=== PATIENT | female | born 1940 | race Caucasian/White ===

== ENCOUNTER 2019-09-08 09:43 | Outpatient (CLI) | payer MEDICARE, BC, SELFPAY ==
--- NOTE | ~2019-09-08 | MR_ITS ---
EXAMINATION: MR lumbar spine wo con DATE: 09/08/2019 11:16 INDICATION: Radiculopathy with right hip and leg pain. Difficulty walking. TECHNIQUE: Magnetic resonance imaging (MRI) of the lumbar spine was performed without intravenous con trast. Sequences included sagittal T2-weighted FSE, sagittal T2-weighted FS FSE, sagittal T1-weighted FSE, and axial T2-weighted FSE. COMPARISON: 06/02/2018 FINDINGS: 2 mm anterolisthesis L4 on L5. Vertebral body heights are normal. T1 hyperintense hemangioma at S1. M arrow signal is otherwise normal. Mild disc height loss at T11-T12, L3-L4 and L4-L5. The conus medull tacos terminates at T12-L1. There is normal signal in the caudal spinal cord. Moderate left renal atro phy. Paravertebral soft tissues are unremarkable. The following disc levels are specifically discusse d: T12-L1: Disc is mildly bulging. There is mild bilateral facet joint osteoarthritis. There is no neura l foraminal stenosis. There is no central canal stenosis. L1-L2: Disc is bulging. There is mild hypertrophy of the ligamentum flavum. There is mild bilateral f acet joint osteoarthritis. There is no neural foraminal stenosis. There is minimal central canal sten osis. L2-L3: Disc is bulging. There is hypertrophy of the ligamentum flavum. There is moderate bilateral fa cet joint osteoarthritis. There is mild bilateral neural foraminal stenosis. There is mild to moderat e central canal stenosis. L3-L4: Disc is bulging. There is hypertrophy of the ligamentum flavum. There is moderate bilateral fa cet joint osteoarthritis. There is mild left and mild to moderate right neural foraminal stenosis. Th ere is moderate central canal stenosis as well as narrowing of the lateral recesses, right greater th an left. L4-L5: Disc is bulging. There is hypertrophy of the ligamentum flavum. There is severe bilateral fac et joint osteoarthritis. There is moderate bilateral neural foraminal stenosis. There is moderate fernando tral canal stenosis as well as of the left and right lateral recesses. L5-S1: Disc is mildly bulging. There is moderate right and severe left facet joint osteoarthritis. Th ere is moderate bilateral neural foraminal stenosis. There is mild central canal stenosis. Is also na rrowing of the left and right lateral recesses, severe on the right greater there appears to be compr ession of the traversing right S1 nerve root. Correlate clinically for muscle weakness of plantar fle xion, sensory change of the lateral foot and small toe, and depressed ankle reflex. IMPRESSION: 1. No significant interval change in moderate lumbar spondylosis with grade 1 anterolisthesis L4 on L 5. Reviewed, dictated and finalized at location A. IMPRESSION: 1. No significant interval change in moderate lumbar spondylosis with grade 1 a nterolisthesis L4 on L5.
--- NOTE | ~2019-09-08 | MR_ITS ---
EXAMINATION: MR thoracic spine wo con DATE: 09/08/2019 11:17 INDICATION: Thoracic radiculopathy. Right leg and hip pain and difficulty walking. TECHNIQUE: Magnetic resonance imaging (MRI) of the thoracic spine was performed without intravenous c ontrast. Sagittal localizer T1-weighted FSE of the cervicothoracic spine was obtained. Thoracic spine sequences included sagittal T2-weighted FSE, sagittal T1-weighted SE, Sagittal T2-weighted FS FSE, a nd axial T2-weighted FSE. COMPARISON: None FINDINGS: Alignment is normal.Chronic minimal anterior wedging atT6 and T7. Chronic minimal central superior en dplate depression at T10. Normal marrow signal.Disc desiccation and mild to moderate disc height loss throughout the thoracic spine greatest at T5-T6 through T7-T8. Annular fissure and right paracentral disc protrusion at T10-T11 which indents the right ventral surface of the cord. Small central disc p rotrusion at T9-T10 and mild diffuse disc bulge at T11-T12. Multilevel mild to moderate facet osteoar thritis throughout the thoracic spine. This contributes to additional mild central canal stenosis T11 -T12 and minimal central canal stenosis at a few other levels in the more cephalad thoracic spine. Th e facet osteoarthritis also contributes to multilevel mild neural foraminal stenosis most prominent o n the right at T1-T2, T4-T5 and T7-T8 and on the left at T1-T2, T2-T3, T9-T10 T10-T11. There is jack l spinal cord signal. Paravertebral soft tissues are unremarkable. IMPRESSION: 1. Mild to moderate thoracic spondylosis. Reviewed, dictated and finalized at location A.
--- NOTE | ~2019-09-08 | XR_ITS ---
EXAMINATION:XR_CERV2-3V_CR DATE: 09/08/2019 11:19 INDICATION: Neck pain TECHNIQUE: AP, lateral, lateral swimmers and odontoid views of the cervical spine are provided. COMPARISON: None FINDINGS: There is straightening of the cervical spine which can be positional or due to muscular spa sm. The odontoid is intact. No fracture is identified. There are 2 mm of anterolisthesis of C3 on C4 and 2 mm of retrolisthesis of C6 on C7. The vertebral body heights are normal. There is moderate loss of intervertebral disc space height at C5-6 and C6-7. Prevertebral soft tissues are normal. Small de generative osteophytes project from the anterior endplates of multiple vertebral bodies. There is mod erate to severe facet and uncovertebral joint osteoarthritis throughout the cervical spine. IMPRESSION: 1. Moderate cervical spondylosis without acute findings. Reviewed, dictated and finalized at location A.
--- NOTE | ~2019-09-08 | XR_ITS ---
EXAMINATION: XR chest 2V DATE: 09/08/2019 11:19 INDICATION: Shortness of breath TECHNIQUE: AP and lateral views of the chest are obtained. COMPARISON: 11/17/2008 FINDINGS: The lungs are free of acute opacities. There is no pleural effusion or pneumothorax. The ca rdiomediastinal silhouette is normal. There is moderate thoracic spondylosis. IMPRESSION: 1. No acute cardiopulmonary abnormality. Reviewed, dictated and finalized at location A.
== END 2019-09-08 09:44 | disposition home or self-care (01) ==
PROVIDERS: PCP Internal Medicine; Visit Provider Nurse Practitioner Family
DX: M54.17 Radiculopathy, lumbosacral region (principal); R06.00 Dyspnea, unspecified; M54.2 Cervicalgia; M47.812 Spondylosis without myelopathy or radiculopathy, cervical region; M47.814 Spondylosis without myelopathy or radiculopathy, thoracic region
CPT/HCPCS: 71046; 72040; 72146; 72148

== ENCOUNTER 2020-03-20 09:12 | Emergency (ER) | payer MEDICARE, BC, SELFPAY ==
[2020-03-20] VITALS (27 sets, daily range): BP systolic 109–141; BP diastolic 65–86; PULSE 72–89; RESP 15–34; TEMP 35.8; O2SAT 89–100
--- NOTE | ~2020-03-20 | XR_ITS ---
EXAMINATION: XR chest 2V DATE: 03/20/2020 10:01 INDICATION: Shortness of breath TECHNIQUE: AP and lateral views of the chest are obtained. COMPARISON: 09/08/2019 FINDINGS: The lungs are free of acute opacities. A right upper extremity PICC ends with its tip in th e proximal superior vena cava. There is no pleural effusion or pneumothorax. The cardiomediastinal si lhouette is normal. There is mild thoracic spondylosis. IMPRESSION: 1. No acute cardiopulmonary abnormality. Reviewed, dictated and finalized at location A. CHBOARD OPERATOR RECEPTIONIST
--- NOTE | ~2020-03-20 | US_ITS ---
EXAMINATION: US venous doppler [facility] DATE: 03/20/2020 11:39 INDICATION: Shortness of breath. Elevated d-dimer. TECHNIQUE: Grayscale ultrasound images without and with compression and Doppler ultrasound images of the bilateral lower extremity veins were obtained. COMPARISON: None. FINDINGS: The visualized portions of right common femoral vein, profunda (deep) femoral vein, femoral vein, pop liteal vein, posterior tibial veins, peroneal veins, gastrocnemius vein and greater saphenous vein ou tflow are patent. The visualized portions of left common femoral vein, profunda femoral vein, femoral vein, popliteal v ein, posterior tibial veins, peroneal veins, gastrocnemius vein and greater saphenous vein outflow ar e patent. IMPRESSION: 1. No deep venous thrombosis in either lower limb. Reviewed, dictated and finalized at location A. MOLDER
--- NOTE | ~2020-03-20 | CT_ITS ---
EXAMINATION: CT brain wo con EXAM DATE: 03/20/2020 09:55 INDICATION: Dizziness. Left hand paresthesia. Feeling strange. Transient ischemic attack. TECHNIQUE: Spiral CT of the head was performed without contrast. Axial, coronal and sagittal images were reviewed. The dose-length product (DLP) for this examination was 605.33 mGy-cm. The exposure w as tailored according to patient size, and iterative reconstruction (ASIR) was used as additional dos e reduction technique. Comparison is made to prior examination from 06/17/2010. FINDINGS: There is no acute intraparenchymal hemorrhage. No evidence of intraparenchymal brain mass lesion. No evidence of acute infarction. Please note that initial head CT has limited sensitivity f or small or acute infarctions. There is mild periventricular and subcortical hypodensity, nonspecific but probably related to small vessel ischemic disease. There is moderate prominence of the sulci a nd ventricles related to cerebral atrophy. There is intracranial carotid arteriosclerosis. There a re no extra-axial collections. There is no mass effect or midline shift. Patient has had bilateral ocular lens surgery. Soft tissue is unremarkable. The visualized sinuses and mastoid air cells are well aerated. IMPRESSION: 1. No acute intracranial findings. 2. Chronic age related findings. Reviewed, dictated and finalized at location B. IAL EFFECTS TECHNICIAN
--- NOTE | ~2020-03-20 | NM_ITS ---
EXAMINATION: NM pulmonary perfusion DATE: 03/20/2020 13:18 INDICATION: Shortness of breath. Elevated d-dimer. TECHNIQUE: 5 mCi Tc-99m MAA by intravenous route. Scintigraphic images of the chest were obtained. COMPARISON: Chest radiograph dated 03/20/2020 FINDINGS: Small perfusion defect at the apical segment of the left upper lobe. Relatively homogeneous perfusion throughout the remainder of the lungs. IMPRESSION: 1. Low probability for pulmonary embolism. Reviewed, dictated and finalized at location A. HAMMER STRIPPER
--- NOTE | 2020-03-20 09:24 | ECG_ITS ---
Measurements Intervals [place] Rate: 81 P: 77 MS: 185 QRS: 48 QRSD: 93 T: 53 QT: 371 QTc: 432 Interpretive Statements SINUS RHYTHM BASELINE WANDER- I, II, AVR, AVL, AVF, V1-V6 NORMAL ECG Electronically Signed On 03-20-2020 13:32:19 EXTRUSION MACHINE OPERATOR by Zeferino Guardado D.O.
--- NOTE | 2020-03-20 09:46 | ED.NEUROSD ---
HPI - Neuro Symptoms/Deficit General Chief Complaint: Neuro Symptoms/Deficit <CHRIS Arce Last Filed: 03/20/20 13:46> Stated Complaint: Left Hand/Arm Numbness <CHRIS Arce Last Filed: 03/20/20 13:46> Time Seen by Provider: 03/20/20 09:28 <CHRIS Arce Last Filed: 03/20/20 13:46> Source: patient <CHRIS Arce Last Filed: 03/20/20 13:46> Mode of arrival: wheelchair <CHRIS Arce Last Filed: 03/20/20 13:46> Limitations: no limitations <CHRIS Arce Last Filed: 03/20/20 13:46> History of Present Illness HPI Narrative: This is a 79 year old female that presents to the ER for pre-syncopal episode today. Reports she was sitting in the car and started to feel lightheaded. She felt like she was going to pass out. She then had tingling in her left hand that lasted briefly. This happened a couple of times which prompted her to be seen. Reports over the last couple of weeks she has been getting short of breath with exertion. Reports she also gets lightheaded in the mornings often. Denies fever, cough, chest pain, or lower extremity edema. <CHRIS Arce Last Filed: 03/20/20 13:46> Related Data Home Medications: Home Medications Medication Instructions Recorded Confirmed Unable to Obtain Home Medications 03/20/20 03/20/20 <CHRIS Arce Last Filed: 03/20/20 13:46> Allergies/Adverse Reactions: Allergies Allergy/AdvReac Type Severity Reaction Status Date / Time meperidine Allergy Mild Verified 05/15/18 04:56 Contrast Media Allergy Unknown Unknown Uncoded 05/15/18 04:56 <CHRIS Arce Last Filed: 03/20/20 13:46> Review of Systems Review of Systems: Narrative: CONSTITUTIONAL: Denies fever EYES: Denies visual changes CARDIOVASCULAR: Denies chest pain, or edema. RESPIRATORY: Reports dyspnea. Denies cough GASTROINTESTINAL: Denies vomiting GENITOURINARY: Denies dysuria NEUROLOGIC: Denies headache, numbness, or weakness. <Nallely Cotto PA-C - Last Filed: 03/20/20 13:46> All systems reviewed & are unremarkable except as noted in HPI and below <Nallely Cotto PA-C - Last Filed: 03/20/20 13:46> [facility] Past Medical History Medical History: Medical History (Updated 03/20/20 @ 13:46 by Nallely Cotto PA-C) History of hyperlipidemia History of hypertension <Nallely Cotto PA-C - Last Filed: 03/20/20 13:46> Social History Social History: Social History Gender identity (if verbalized by the patient): Female <Nallely Cotto PA-C - Last Filed: 03/20/20 13:46> Exam Narrative: Exam Narrative: GENERAL: Well-appearing, obese, and in no acute distress. HEAD: Normocephalic, atraumatic. EYES: PERRLA and EOMI. ENT: Nares clear, no rhinorrhea or epistaxis. Mucous membranes moist. Oropharynx without tonsillar hypertrophy exudate or other lesions. Bilateral TMs pearly alford non-bulging NECK: Supple. No adenopathy or masses. No carotid bruits or JVD CHEST: Clear to auscultation. No respiratory distress. No wheezes rales or rhonchi HEART: Regular rate and rhythm. No murmur heard. Normal peripheral pulses. EXTREMITIES: Normal range of motion, except decreased ROM in the right hip due to brace in place. No edema. SKIN: Warm, dry, no rash. NEURO: No focal deficits. Alert and oriented x3. Cranial nerves II through XII grossly intact. Normal [id number]-[id number] PSYCH: Normal mood and affect <Nallely Cotto PA-C - Last Filed: 03/20/20 13:46> Course Consultations Consultation #1: Spoke with patient's primary about work-up will follow-up in clinic. <Nallely Cotto PA-C - Last Filed: 03/20/20 13:46> Date: 03/20/20 <Nallely Cotto PA-C - Last Filed: 03/20/20 13:46> Time: 13:43 <Nallely Cotto PA-C - Last Filed: 03/20/20 13:46> Vital Signs Vital signs: Vital Signs Temperature 96.4 F L 03/20/20 09:17 Pulse Rate 82 03/20/20 09:17 R
--- NOTE | 2020-03-20 09:50 | PC.NURSE ---
AWAITING PT CHEST XRAY TO CONFIRM PICC LINE PLACEMENT PRIOR TO ADMIN FLUIDS.
--- NOTE | 2020-03-20 09:56 | PC.NURSE ---
PT IN CT AT THIS TIME.
--- NOTE | 2020-03-20 10:10 | PC.NURSE ---
pt back from scanner at this time.
[2020-03-20] MEDS: SODIUM CHLORIDE 0.9% IV 1,000 ML 999 ML IV CONT (10:17)
[2020-03-20 10:19] LABS: Basophils Absolute Auto 0.1 K/mm3 (0.0-0.1); Basophils Percent Auto 0.5 % (0.2-1.2); Eosinophils Absolute Auto 0.3 K/mm3 (0-0.3); Eosinophils Percent Auto 3.4 % (0-4.4); Hematocrit 29.3 % (37.0-47.0); Hemoglobin 9.1 g/dL (12.0-15.0); Immature Granulocyte Absolute 0.04 K/mm3 (0.00-0.031); Immature Granulocyte Percent A 0.4 % (0-0.5); Lymphocytes Absolute Auto 1.25 K/mm3 (0.9-3.2); Lymphocytes Percent Auto 12.8 % (18.3-44.2); Mean Corpuscular HGB Conc 31.1 g/dl (32-36); Mean Corpuscular Hemoglobin 31.3 pg (26-34); Mean Corpuscular Volume 100.7 fl (80-100); Mean Platelet Volume 9.6 fl (7.4-10.4); Monocytes Absolute Auto 0.7 K/mm3 (0.1-0.6); Neutrophils Absolute Auto 7.4 K/mm3 (1.3-6.7); Neutrophils Percent Auto 75.9 % (45.5-73.1); Platelet Count Result 398 k/mm3 (150-375); Red Blood Count 2.91 M/mm3 (4.2-5.4); Red Cell Distribution Width 13.4 % (11.5-14.5); White Blood Count 9.8 K/mm3 (4.5-10.0)
[2020-03-20 10:21] LABS: Glucose Point of Care 132 (65-105)
[2020-03-20 10:30] LABS: INR 1.3; Prothrombin Time 16.4 Seconds (11.1-14.7)
[2020-03-20 10:46] LABS: D Dimer 6.92 ug/mL (<0.48)
[2020-03-20 10:50] LABS: Anion Gap 9 mmol/L (8-16); Blood Urea Nitrogen 23 mg/dL (7-17); Calcium 9.4 mg/dL (8.4-10.2); Carbon Dioxide 29 mmol/L (22-30); Chloride 100 mmol/L (98-107); Estimated CRCL calculation 46 ml/min; Estimated Glomerular Filt Rate 53; Glucose 134 mg/dL (65-105); Lactic Acid Reflex 1.7 mmol/L (0.7-2.1); Potassium 4.1 mmol/L (3.4-5.0); Sodium 138 mmol/L (137-145)
[2020-03-20 10:57] LABS: Add Urine Microscopic? YES; Appearance Urine Clear (Clear); Bacteria Urine Trace /hpf; Bilirubin Urine Negative (Negative); Blood Urine Negative (Negative); Color Urine Yellow (Yellow); Glucose Urine UA Negative (Negative); Ketones Urine Negative (Negative); Leukocyte Esterase Ur 1+ LEU/UL (Negative); Mucus Urine Rare /lpf; Nitrate Urine Negative (Negative); Protein Urine 1+ mg/dL (Negative); RBC Urine 0-2 /hpf (0-2); Specific Grav Ur 1.016 (1.001-1.035); Squamous Epithelial Cell Urine Many /hpf (Few); Urobilinogen Urine Negative mg/dL (<2.0)
[2020-03-20 11:01] LABS: Troponin I < 0.012 ng/mL (0.000-0.034)
[2020-03-20 11:12] LABS: CRP 0.9 mg/dL (<1.0)
[2020-03-20 11:18] LABS: NT Pro B Type Natriuretic Pept 426 PG/ML (5-100)
--- NOTE | 2020-03-20 11:30 | PC.NURSE ---
PT IN CT AT THIS TIME.
[2020-03-20] MEDS: ACETAMINOPHEN 500 MG TABLET 1000 MG PO (12:46)
--- NOTE | 2020-03-20 12:46 | PC.NURSE ---
PT TO NUCLEAR MED AT THSI TIME PER STRETCHER ON MONITOR.
--- NOTE | 2020-03-20 13:12 | PC.NURSE ---
PT ARRIVING BACK TO ROOM 14 FROM NUCLEAR MED, AWAITING RESULTS OF SCAN, VSS, WILL CONTINUE TO MONITOR.
== END 2020-03-20 14:04 | disposition home or self-care (01) ==
PROVIDERS: Physician Assistant; Emergency Provider General Practice; PCP Internal Medicine
DX: R55 Syncope and collapse (principal); R20.2 Paresthesia of skin; R06.00 Dyspnea, unspecified; E78.5 Hyperlipidemia, unspecified; I10 Essential (primary) hypertension; R82.998 Other abnormal findings in urine; R79.1 Abnormal coagulation profile
CPT/HCPCS: 36415; 70450; 71046; 78580; 80048; 81001; 82948; 83605; 83880; 84484; 85025; 85380; 85610; 85730; 86140; 87086; 87088; 93005; 93970; 96360; 96361; 99284; A9270; A9540; J7030

== ENCOUNTER 2020-06-07 10:30 | Outpatient (RCR) | payer MEDICARE, BC, SELFPAY ==
[2020-05-29 11:15] VITALS: BP 108/54; PULSE 62; RESP 20; TEMP 35.8; O2SAT 98
[2020-05-29 11:19] VITALS: PULSE 62
--- NOTE | 2020-06-11 08:14 | PCCPR ---
Discharge Susan HAJI on our voicemail she had an apt with her Machine Iii Coremaker Dr Riley. She discussed how she felt the nustep has been aggravating her knee and her hip. States she is back using a cane she has not used for a month. He told her to go ahead and cancel or dc the program. Spoke with her this am for clarification. She is going to dc.
== END 2020-06-11 08:55 | disposition home or self-care (01) ==
LOC: ANHCPREHAB 10:30
PROVIDERS: PCP Internal Medicine; Visit Provider Internal Medicine Cardiovascular Disease
DX: Z95.5 Presence of coronary angioplasty implant and graft (principal)
CPT/HCPCS: 93798

== ENCOUNTER 2021-04-24 08:28 | Outpatient (CLI) | payer MEDICARE, BC, SELFPAY ==
--- NOTE | ~2021-04-24 | XR_ITS ---
EXAMINATION: XR lumbar spine 2-3V DATE: 04/24/2021 08:58 INDICATION: Low back pain TECHNIQUE: Anteroposterior and lateral views of the lumbar spine, and cone-down lateral view of the l umbosacral junction were obtained. COMPARISON: MRI, 09/08/2019 FINDINGS: There are 7 mm of anterolisthesis of L4 on L5, increased since the comparison examination. The vertebral body heights are maintained. There is mild loss of intervertebral disc space height at L3-4, L4-5, and L5-S1. Small degenerative osteophytes project from the anterior endplates of multiple vertebral bodies. Changes of right total hip arthroplasty are noted. There is calcified atherosclero sis. IMPRESSION: 1. Moderate lumbar spondylosis, with interval worsening at L4-5, without acute findings. Reviewed, dictated and finalized at location A. LATION EXTRUDER OPERATOR
== END 2021-04-24 08:29 | disposition home or self-care (01) ==
LOC: ANHIMG 08:40
PROVIDERS: PCP Internal Medicine; Visit Provider Internal Medicine
DX: M47.896 Other spondylosis, lumbar region (principal)
CPT/HCPCS: 72100

== ENCOUNTER 2021-05-09 10:00 | Emergency (ER) | payer MEDICARE, BC, SELFPAY ==
[2021-05-09] VITALS (18 sets, daily range): BP systolic 118–152; BP diastolic 58–81; PULSE 52–62; RESP 13–21; TEMP 36.4; O2SAT 98–100
--- NOTE | ~2021-05-09 | CT_ITS ---
EXAMINATION: CT brain wo con DATE: 05/09/2021 11:28 INDICATION: Dysarthria TECHNIQUE: Computed tomography (CT) of the head was performed without intravenous contrast. The dose- length product was 605.33 mGy-cm. Automated exposure control and iterative reconstruction technique w ere employed. COMPARISON: CT dated 03/20/2020 FINDINGS: No acute intracranial hemorrhage, infarction, mass or mass effect. There are scattered mild periventricular and subcortical white matter changes, most likely related to small vessel ischemic d isease (microangiopathy). No ventriculomegaly or midline shift. Basilar cisterns are patent. Paranasa l sinuses and mastoids are pneumatized. No depressed skull fractures. Midline sagittal images demonst rate a normal corpus callosum and craniovertebral junction. IMPRESSION: 1. No acute intracranial abnormality. Reviewed, dictated and finalized at location A. ER DRIED BEEF
--- NOTE | ~2021-05-09 | XR_ITS ---
XR chest 1V portable 05/09/2021 10:50 Indication: Transient alteration of awareness Procedure: AP portable chest Comparison: 03/20/2020 Findings: Heart size normal. There are bilateral interstitial infiltrates. No significant effusion. N o pneumothorax. No acute osseous abnormality. Impression: 1: Bilateral interstitial infiltrates which may represent mild edema or developing pneumonia. Reviewed, dictated and finalized at location A. CTOR OF CHANNEL MARKETING Impression: 1: Bilateral interstitial infiltrates which may represent mild edema or develop ing pneumonia.
[2021-05-09 10:13] LABS: Glucose Point of Care 103 mg/dl (65-105)
--- NOTE | 2021-05-09 10:18 | ECG_ITS ---
Measurements Intervals [place] Rate: 53 P: 63 UT: 205 QRS: 31 QRSD: 98 T: 41 QT: 458 QTc: 431 Interpretive Statements SINUS BRADYCARDIA BORDERLINE AV CONDUCTION DELAY BORDERLINE ECG Electronically Signed On 05-09-2021 16:53:23 TENDER LABOR by Zeferino Guardado D.O.
[2021-05-09 10:35] LABS: Basophils Percent Auto 0.5 % (0.2-1.2); Eosinophils Absolute Auto 0.3 K/mm3 (0-0.3); Eosinophils Percent Auto 4.1 % (0-4.4); Hematocrit 34.7 % (37.0-47.0); Hemoglobin 11.4 g/dL (12.0-15.0); Immature Granulocyte Absolute 0.01 K/mm3 (0.00-0.031); Immature Granulocyte Percent A 0.1 % (0-0.5); Lymphocytes Percent Auto 30.8 % (18.3-44.2); Mean Corpuscular HGB Conc 32.9 g/dl (32-36); Mean Corpuscular Volume 100.6 fl (80-100); Mean Platelet Volume 10.6 fl (7.4-10.4); Monocytes Absolute Auto 0.7 K/mm3 (0.1-0.6); Neutrophils Absolute Auto 4.1 K/mm3 (1.3-6.7); Neutrophils Percent Auto 55.5 % (45.5-73.1); Platelet Count Result 231 k/mm3 (150-375); Red Blood Count 3.45 M/mm3 (4.2-5.4); Red Cell Distribution Width 12.2 % (11.5-14.5); White Blood Count 7.5 K/mm3 (4.5-10.0)
--- NOTE | 2021-05-09 10:43 | ED.NEUROSD ---
HPI - Neuro Symptoms/Deficit General Chief Complaint: Neuro Symptoms/Deficit Stated Complaint: STROKE LIKE SYMPTOMS Time Seen by Provider: 05/09/21 10:02 Source: patient Mode of arrival: EMS Limitations: no limitations History of Present Illness HPI Narrative: This is a an 80 year old female with history of hypertension, heart disease, optic stroke who presents for evaluation of speech difficulty. Patient states she woke up at 530 am and she was feeling fine. She had been talking to her , and around 930 am she felt like she was tongue tied . She felt like her tongue was thick and words did not sound right coming out of her mouth. She denies headache, dizziness, facial drooping, focal weakness in arms or legs, numbness or tingling. EMS reports patient had FAST ED score of 0. Patient reports she feels better now, and her reports her symptoms have resolved. she appears to be at baseline per . She denies history of TIA or similar symptoms in the past. Related Data Home Medications Medication Instructions Recorded Confirmed acetaminophen 500 mg PO Q6H PRN 05/29/20 05/29/20 allopurinol 100 mg PO DAILY 05/29/20 05/29/20 aspirin 81 mg PO DAILY 05/29/20 05/29/20 aspirin 325 mg PO Q6H PRN 05/29/20 05/29/20 brimonidine-timolol 1 drp OPHTHALMIC (EYE) Q12H 05/29/20 05/29/20 kqabpmx-fvz-npx C0-W9-mwqmamjw 1 tablet 05/29/20 [Calcium Citrate + D with Mag] candesartan 8 mg PO DAILY 05/29/20 05/29/20 cephalexin 500 mg PO Q8H 05/29/20 05/29/20 cyanocobalamin-cobamamide [B12] 2,500 eliseo SUBLINGUAL DAILY 05/29/20 05/29/20 docusate sodium 100 mg PO BID 05/29/20 05/29/20 ezetimibe 10 mg PO DAILY 05/29/20 05/29/20 mag vc-zkodzfn-mrtwtlubx-e-malia 400 mg PO DAILY 05/29/20 05/29/20 metoprolol succinate 25 mg PO DAILY 05/29/20 05/29/20 jt-qp-kutz-FA-Ca carb-vit K 1 tablet DAILY 05/29/20 05/29/20 [Women's Multivitamin] oxybutynin chloride 5 mg PO DAILY 05/29/20 05/29/20 polyethylene glycol 3350 [Miralax] 17 g PO PRN 05/29/20 rosuvastatin 20 mg PO DAILY 05/29/20 05/29/20 Allergies Allergy/AdvReac Type Severity Reaction Status Date / Time meperidine Allergy Mild Verified 05/15/18 04:56 Contrast Media Allergy Unknown Unknown Uncoded 05/15/18 04:56 Review of Systems Review of Systems: All systems reviewed & are unremarkable except as noted in HPI and below [facility] Past Medical History Medical History (Updated 05/09/21 @ 13:20 by Colleen Corado PA-C) Dyslipidemia Glaucoma Hypertension Ischemic optic neuropathy Obstructive sleep apnea on CPAP Urinary incontinence in female Surgical History Surgical History (Updated 05/09/21 @ 13:18 by Colleen Corado PA-C) History of appendectomy History of cardiac catheterization History of carpal tunnel release History of section History of colonoscopy with polypectomy History of hysterectomy History of right hip replacement Status post removal of thyroid nodule Status post trigger finger release Family History Family History Sibling Acute myocardial infarction Cerebrovascular accident Diabetes mellitus Breast cancer Father Diabetes mellitus Mother Breast cancer Exam Const: General: no acute distress and alert Orientation/consciousness: patient oriented x3 HENMT: Head: normocephalic and atraumatic Face and sinus: normal facial exam, sinuses nontender and face symmetric Mouth: Yes Normal oral and palatal mucosa present, Yes lip normal, Yes tongue normal, Yes oropharynx normal and Yes moist mucous membranes Throat: posterior oropharynx normal, tonsils normal and uvula midline Eyes: Pupils: Equal, round and reactive pupils present EOM: EOMs intact bilaterally Resp: Effort & Inspection: normal respiratory effort and no retractions Auscultation: clear to auscultation bilaterally Cardio: Rate: regular rate Rhythm: regular rhythm Heart sounds: no murmurs GI: GI Palp: Y
[2021-05-09 10:48] LABS: INR 1.1; Prothrombin Time 13.7 Seconds (11.1-14.7)
[2021-05-09 10:49] LABS: Partial Thromboplastin Time 31.5 SECONDS (22.3-36.8)
[2021-05-09 10:52] LABS: Alanine Aminotransferase 15 U/L (4-35); Albumin Level 3.5 g/dL (3.5-5.1); Alkaline Phosphatase 72 U/L (38-126); Anion Gap 4 mmol/L (8-16); Aspartate Amino Transferase 20 U/L (14-36); Bilirubin,Total 0.3 mg/dL (0.2-1.3); Blood Urea Nitrogen 29 mg/dL (7-17); Calcium 7.9 mg/dL (8.4-10.2); Carbon Dioxide 21 mmol/L (22-30); Chloride 110 mmol/L (98-107); Estimated CRCL calculation 55 ml/min; Estimated Glomerular Filt Rate > 60; Glucose 109 mg/dL (65-110); Potassium 3.5 mmol/L (3.4-5.0); Sodium 135 mmol/L (137-145)
[2021-05-09 11:03] LABS: Troponin I < 0.012 ng/mL (0.000-0.034)
[2021-05-09 11:59] LABS: NT Pro B Type Natriuretic Pept 245 pg/mL (5-100)
--- NOTE | 2021-05-09 13:14 | PM.IMHP ---
[facility] Past Medical History Medical History (Updated 05/09/21 @ 13:20 by Colleen Corado PA-C) Dyslipidemia Glaucoma Hypertension Ischemic optic neuropathy Obstructive sleep apnea on CPAP Urinary incontinence in female Surgical History Surgical History (Updated 05/09/21 @ 13:18 by Colleen Corado PA-C) History of appendectomy History of cardiac catheterization History of carpal tunnel release History of section History of colonoscopy with polypectomy History of hysterectomy History of right hip replacement Status post removal of thyroid nodule Status post trigger finger release Family History Family History Sibling Acute myocardial infarction Cerebrovascular accident Diabetes mellitus Breast cancer Father Diabetes mellitus Mother Breast cancer Meds Home Medications and Allergies Home Medications Medication Instructions Recorded Confirmed Type acetaminophen 500 mg PO Q6H PRN 05/29/20 05/29/20 History allopurinol 100 mg PO DAILY 05/29/20 05/29/20 History aspirin 81 mg PO DAILY 05/29/20 05/29/20 History aspirin 325 mg PO Q6H PRN 05/29/20 05/29/20 History brimonidine-timolol 1 drp OPHTHALMIC (EYE) Q12H 05/29/20 05/29/20 History ruobjbk-duw-pep D0-O1-foqmyalg 1 tablet 05/29/20 History [Calcium Citrate + D with Mag] candesartan 8 mg PO DAILY 05/29/20 05/29/20 History cephalexin 500 mg PO Q8H 05/29/20 05/29/20 History cyanocobalamin-cobamamide [B12] 2,500 eliseo SUBLINGUAL DAILY 05/29/20 05/29/20 History docusate sodium 100 mg PO BID 05/29/20 05/29/20 History ezetimibe 10 mg PO DAILY 05/29/20 05/29/20 History mag yr-ivsajlc-bebrnfpjf-e-malia 400 mg PO DAILY 05/29/20 05/29/20 History metoprolol succinate 25 mg PO DAILY 05/29/20 05/29/20 History wq-vp-lqbi-FA-Ca carb-vit K 1 tablet DAILY 05/29/20 05/29/20 History [Women's Multivitamin] oxybutynin chloride 5 mg PO DAILY 05/29/20 05/29/20 History polyethylene glycol 3350 [Miralax] 17 g PO PRN 05/29/20 History rosuvastatin 20 mg PO DAILY 05/29/20 05/29/20 History Allergies Allergy/AdvReac Type Severity Reaction Status Date / Time meperidine Allergy Mild Verified 05/15/18 04:56 Contrast Media Allergy Unknown Unknown Uncoded 05/15/18 04:56
[2021-05-10 19:18] LABS: SARS-CoV-2 RNA PCR Negative
== END 2021-05-09 13:20 | disposition left against medical advice (07) ==
PROVIDERS: Emergency Provider General Practice; PCP Internal Medicine
DX: R47.1 Dysarthria and anarthria (principal); Z20.822 Contact with and (suspected) exposure to COVID-19; R00.1 Bradycardia, unspecified; R94.31 Abnormal electrocardiogram [ECG] [EKG]; R91.8 Other nonspecific abnormal finding of lung field; Z79.82 Long term (current) use of aspirin; E78.5 Hyperlipidemia, unspecified; I10 Essential (primary) hypertension; H47.019 Ischemic optic neuropathy, unspecified eye; G47.33 Obstructive sleep apnea (adult) (pediatric); Z86.010 Personal history of colon polyps; Z96.641 Presence of right artificial hip joint
CPT/HCPCS: 36415; 70450; 71045; 80053; 82948; 83880; 84484; 85025; 85610; 85730; 93005; 99284; C9803; U0003; U0005

== ENCOUNTER 2021-05-24 08:55 | Outpatient (CLI) | payer MEDICARE, BC, SELFPAY ==
--- NOTE | ~2021-05-24 | XR_ITS ---
EXAMINATION: XR chest 2V DATE: 05/24/2021 09:14 INDICATION: Bilateral lung opacities. Abnormal chest radiograph. TECHNIQUE: Frontal and lateral views of the chest were obtained. COMPARISON: Chest single view 05/09/2021, chest 2 views 03/20/2020 FINDINGS: There is mild atelectasis at left lung base. No pleural effusion or pneumothorax. The heart size is normal. IMPRESSION: 1. Mild atelectasis at left lung base. Reviewed, dictated and finalized at location A. CS MANUFACTURING TECHNICIAN
== END 2021-05-24 08:56 | disposition home or self-care (01) ==
LOC: ANHIMG 09:01
PROVIDERS: PCP Internal Medicine; Visit Provider Internal Medicine
DX: R91.8 Other nonspecific abnormal finding of lung field (principal)
CPT/HCPCS: 71046

== ENCOUNTER 2021-11-11 10:06 | Outpatient (CLI) | payer MEDICARE, BC, SELFPAY ==
--- NOTE | ~2021-11-11 | XR_ITS ---
EXAMINATION: XR hip LT min 2V INDICATION: Left hip pain TECHNIQUE: Two views of the left hip are obtained. COMPARISON: None available FINDINGS: Bone alignment is normal. There is no fracture. There is moderate osteoarthritis of the hip . Suture anchors are noted in the pubic symphysis. There are phleboliths in the pelvis. IMPRESSION: 1. Moderate hip osteoarthritis. Reviewed, dictated and finalized at location A.
== END 2021-11-11 10:07 | disposition home or self-care (01) ==
PROVIDERS: PCP Internal Medicine; Visit Provider Nurse Practitioner Family
DX: M16.12 Unilateral primary osteoarthritis, left hip (principal)
CPT/HCPCS: 73502

== ENCOUNTER 2022-01-20 19:39 | Observation (INO) | payer MEDICARE, BC, SELFPAY ==
--- NOTE | ~2022-01-20 | CT_ITS ---
EXAMINATION: CT brain wo con DATE: 01/20/2022 20:25 INDICATION: left arm numbness . TECHNIQUE: Computed tomography (CT) of the head was performed without intravenous contrast. The mA wa s adjusted according to patient size. Iterative reconstruction technique was employed. The dose-lengt h product was 605.33 mGy-cm. COMPARISON: 05/09/2021 FINDINGS: No acute intracranial hemorrhage or extra-axial fluid collection. No hydrocephalus, mass, or herniation. No acute ischemic infarct. Unremarkable dural venous sinus attenuation. No acute osseous abnormality. The aerated spaces are clear. Mild atrophy and chronic white matter change. Atherosclerotic intracranial calcifications. IMPRESSION: No acute intracranial process. Reviewed, dictated and finalized at location K.
--- NOTE | ~2022-01-20 | XR_ITS ---
EXAMINATION: XR chest 2V Exam Date/Time: 01/20/2022 20:20 CDT HISTORY: BILATERAL ARM TINGLING, HX HTN TIA Comparison: 05/24/2021. RESULT: Lines, tubes, and devices: None. Lungs and pleura: Senescent change left lower lobe scar. Cardiomediastinal silhouette: Stable. Other: No acute osseous or upper abdominal finding. IMPRESSION: No acute cardiopulmonary process. Reviewed, dictated and finalized at location K.
--- NOTE | ~2022-01-20 | MR_ITS ---
EXAMINATION: MR brain/brain stem wo/w con DATE: 01/21/2022 12:17 INDICATION: Transient ischemic attack. TECHNIQUE: Magnetic resonance imaging (MRI) of the brain and brainstem was performed without and with 20 mL MultiHance intravenous contrast. COMPARISON: Head CT 01/20/2022 FINDINGS: There are scattered areas of nonspecific increased T2-weighted signal intensity in the cere bral white matter, which is within normal limits for the patient's age. There is no intracranial hem orrhage, acute infarction, or abnormal intracranial mass lesion. The ventricles are normal in size. T he paranasal sinuses are clear. There are likely changes of ocular lens replacement surgeries. The ma stoid air cells are normal. IMPRESSION: 1. Normal aging brain. Reviewed, dictated and finalized at location A. IMPRESSION: 1. Normal aging brain.
--- NOTE | ~2022-01-20 | US_ITS ---
EXAMINATION: US carotid duplex BI DATE: 01/21/2022 12:45 INDICATION: Transient ischemic attack. TECHNIQUE: Grayscale, color Doppler, and pulsed Doppler images of the cervical carotid arteries were obtained. The degree of vessel stenosis is placed in one of the following categories: normal, <50%, 5 0-69%, >=70% but less than near-occlusion, near-occlusion, or total occlusion. Note that percent sten osis relative to normal distal artery lumen diameter is indirectly measured from velocity measurement s as described by Justin, et al. Radiology 2003; 229:340-346. COMPARISON: None. FINDINGS: RIGHT: The right common carotid artery (CCA) peak systolic velocity (PSV) is 77 cm/s. The right internal car otid artery (ICA) PSV is 58 cm/s. The right ICA end-diastolic velocity (EDV) is 17 cm/s. The right IC A/CCA PSV ratio is 0.8. Grayscale and color Doppler images yield an estimate of <50% diameter reducti on from plaque in the ICA. There is antegrade flow in the right vertebral artery. LEFT: The left CCA PSV is 72 cm/s. The left ICA PSV is 61 cm/s. The left ICA EDV is 23 cm/s. The left ICA/C CA PSV ratio is 0.8. Grayscale and color Doppler images yield an estimate of <50% diameter reduction from plaque in the ICA. There is antegrade flow in the left vertebral artery. IMPRESSION: 1. <50% stenosis in the right internal carotid artery. 2. <50% stenosis in the left internal carotid artery. Reviewed, dictated and finalized at location A.
[2022-01-20 19:38] VITALS: BP 197/84; PULSE 68; RESP 13; TEMP 36.6; O2SAT 99
--- NOTE | 2022-01-20 19:54 | ECG_ITS ---
Measurements Intervals [place] Rate: 61 P: 68 NV: 199 QRS: 38 QRSD: 87 T: 52 QT: 430 QTc: 435 Interpretive Statements SINUS RHYTHM NORMAL ECG COMPARED TO ECG 05/09/2021 10:26:51 SINUS RHYTHM NOW PRESENT Electronically Signed On 01-21-2022 6:25:31 CDT by Zeferino Guardado D.O.
[2022-01-20 20:14] LABS: Glucose Point of Care 94 mg/dl (65-105)
[2022-01-20 20:18] LABS: Basophils Absolute Auto 0.1 K/mm3 (0.0-0.1); Basophils Percent Auto 0.7 % (0.2-1.2); Eosinophils Absolute Auto 0.4 K/mm3 (0-0.3); Eosinophils Percent Auto 4.6 % (0-4.4); Hematocrit 39.2 % (37.0-47.0); Hemoglobin 12.7 g/dL (12.0-15.0); Immature Granulocyte Absolute 0.02 K/mm3 (0.00-0.031); Immature Granulocyte Percent A 0.2 % (0-0.5); Lymphocytes Absolute Auto 3.18 K/mm3 (0.9-3.2); Lymphocytes Percent Auto 34.7 % (18.3-44.2); Mean Corpuscular HGB Conc 32.4 g/dl (32-36); Mean Corpuscular Hemoglobin 32.2 pg (26-34); Mean Corpuscular Volume 99.5 fl (80-100); Mean Platelet Volume 10.2 fl (7.4-10.4); Monocytes Absolute Auto 0.8 K/mm3 (0.1-0.6); Monocytes Percent Auto 9.2 % (2.6-8.5); Neutrophils Absolute Auto 4.7 K/mm3 (1.3-6.7); Neutrophils Percent Auto 50.6 % (45.5-73.1); Platelet Count Result 262 k/mm3 (150-375); Red Blood Count 3.94 M/mm3 (4.2-5.4); Red Cell Distribution Width 12.3 % (11.5-14.5); White Blood Count 9.2 K/mm3 (4.5-10.0)
[2022-01-20 20:28] LABS: Anion Gap 9 mmol/L (8-16); Blood Urea Nitrogen 25 mg/dL (7-17); Calcium 9.3 mg/dL (8.4-10.2); Carbon Dioxide 26 mmol/L (22-30); Chloride 102 mmol/L (98-107); Estimated CRCL calculation 18 ml/min; Estimated Glomerular Filt Rate 43; Glucose 100 mg/dL (65-110); Potassium 4.2 mmol/L (3.4-5.0); Sodium 137 mmol/L (137-145)
[2022-01-20 20:29] LABS: INR 1.1; Prothrombin Time 13.5 Seconds (11.1-14.7)
[2022-01-20 20:30] LABS: Partial Thromboplastin Time 31.1 SECONDS (22.3-36.8)
[2022-01-20 20:40] LABS: Troponin I < 0.012 ng/mL (0.000-0.034)
--- NOTE | 2022-01-20 20:43 | ED.NEUROSD ---
HPI - Neuro Symptoms/Deficit General Chief Complaint: Neuro Symptoms/Deficit Stated Complaint: NEURO Time Seen by Provider: 01/20/22 19:44 History of Present Illness HPI Narrative: Patient is an 81-year-old female who presents ER with concerns for CVA. Patient having left arm numbness. She also reports at 1230 today she had developed right sided facial numbness that persisted through the arm numbness. No slurred speech no facial droop. No arm drift. She felt dizzy when she went from sitting to standing. Symptoms now resolved. Had similar symptoms couple months ago left AMA. Patient has history of optic stroke. She reports she recently ran out of her baby M-DAQ's and has not been taking chest pain chest pressure shortness of breath. Admission condition Related Data Home Medications Medication Instructions Recorded Confirmed acetaminophen 500 mg tablet 500 mg PO Q6H PRN Pain 05/29/20 05/29/20 allopurinol 100 mg tablet 100 mg PO DAILY 05/29/20 05/29/20 aspirin 81 mg PO DAILY 05/29/20 05/29/20 aspirin 325 mg tablet 325 mg PO Q6H PRN Pain 05/29/20 05/29/20 brimonidine 0.2 %-timolol 0.5 % 1 drp ophthalmic (eye) Q12H 05/29/20 05/29/20 eye drops ryxgkwt-wjj-ntu Y9-I5-vqdcqvfe 250 1 tablet 05/29/20 mg-40 mg-5 mg-125 unit tablet candesartan 8 mg tablet 8 mg PO DAILY 05/29/20 05/29/20 cephalexin 500 mg capsule 500 mg PO Q8H 05/29/20 05/29/20 cyanocobalamin (B12)-cobamamide 2,500 eliseo sublingual DAILY 05/29/20 05/29/20 5,000 mcg-100 mcg sublingual lozenge (B12) docusate sodium 100 mg capsule 100 mg PO BID 05/29/20 05/29/20 ezetimibe 10 mg PO DAILY 05/29/20 05/29/20 mag ro-ujxlpmd-zolvtsqzz-e-malia 400 mg PO DAILY 05/29/20 05/29/20 metoprolol succinate 25 mg 25 mg PO DAILY 05/29/20 05/29/20 tablet,extended release 24 hr dlutzexf-ssg-sfwn-FA-Ca carb-vit K 1 tablet DAILY 05/29/20 05/29/20 18 mg iron-400 mcg-500 mg tablet (Women's Multivitamin) oxybutynin chloride 5 mg tablet 5 mg PO DAILY 05/29/20 05/29/20 polyethylene glycol 3350 17 17 g PO PRN Constipation 05/29/20 gram/dose oral powder (Miralax) rosuvastatin 20 mg tablet 20 mg PO DAILY 05/29/20 05/29/20 Allergies Allergy/AdvReac Type Severity Reaction Status Date / Time meperidine Allergy Mild Nausea and Verified 01/20/22 19:54 Vomiting tramadol AdvReac Nausea and Verified 01/20/22 19:54 Vomiting Contrast Media Allergy Unknown Unknown Uncoded 01/20/22 19:54 Review of Systems Review of Systems: All systems reviewed & are unremarkable except as noted in HPI and below Constitutional: Constitutional: Denies chills and Denies fever(s) Eyes: Eyes: Denies change in vision ENT: Denies nasal congestion and Denies sore throat Cardiovascular: Cardiovascular: Denies chest pain, Denies rapid heart rate and Denies radiating jaw, neck or arm pain Respiratory: Respiratory: Denies cough, Denies dyspnea and Denies wheezing Gastrointestinal: Gastrointestinal: Denies abdominal pain, Denies nausea and Denies vomiting Neurologic: Reports dizziness, Denies syncope, Denies headache(s), Denies focal weakness, Reports numbness and Denies weakness PMFSH Past Medical History Medical History (Updated 01/20/22 @ 23:23 by Don Cullen MD) Dyslipidemia Glaucoma Hypertension Ischemic optic neuropathy Obstructive sleep apnea on CPAP Urinary incontinence in female Surgical History Surgical History (Updated 05/09/21 @ 13:18 by Colleen Corado PA-C) History of appendectomy History of cardiac catheterization History of carpal tunnel release History of section History of colonoscopy with polypectomy History of hysterectomy History of right hip replacement Status post removal of thyroid nodule Status post trigger finger release Family History Family History Sibling Acute myocardial infarction Cerebrovascular accident Diabetes mellitus Breast cancer Father Diabetes mellitus
--- NOTE | 2022-01-20 21:02 | PC.NURSE ---
Pt able to ambulate with minimal assistance to restroom for urine sample
[2022-01-20 21:09] VITALS: BP 176/76; PULSE 64; RESP 16; O2SAT 99
[2022-01-20] MEDS: SODIUM CHLORIDE 0.9% IV 1,000 ML 999 ML IV CONT (21:09)
[2022-01-20 21:12] LABS: Appearance Urine Clear (Clear); Bilirubin Urine Negative (Negative); Blood Urine Negative (Negative); Color Urine Yellow (Yellow); Glucose Urine UA Negative (Negative); Ketones Urine Negative (Negative); Leukocyte Esterase Ur Negative LEU/UL (Negative); Nitrate Urine Negative (Negative); Protein Urine Negative (Negative); Urobilinogen Urine 0.2 mg/dL (<2.0)
[2022-01-20 21:13] LABS: Add Urine Microscopic? NO
[2022-01-20 21:47] VITALS: BP 142/95; PULSE 70; RESP 16; O2SAT 100
[2022-01-20 23:13] VITALS: BP 141/78; PULSE 65; RESP 16; O2SAT 99
[2022-01-20 23:20] VITALS: BP 154/95; PULSE 71; RESP 18; TEMP 36; O2SAT 96
[2022-01-20 23:44] VITALS: BMI 35.6
--- NOTE | 2022-01-20 23:50 | ADMGEN ---
This patient, Susan Foster, was admitted to [facility] Surg Room 323-02. Patient/family oriented to hospital policies and general routines including ID bracelet, bed and alarms, visiting hours, pain management, procedures, bathroom and other care routines, personal items, smoking policy, room service/diet, and visiting hours. Information on how to activate the Rapid Response Team has been discussed. Patient/Family are encouraged to report perceived risks to care and to ask questions if they do not understand what they are told or what they should do.
[2022-01-21 04:00] VITALS: PULSE 55
[2022-01-21 06:00] VITALS: BP 131/87; PULSE 67; RESP 18; TEMP 36.1; O2SAT 98
--- NOTE | 2022-01-21 06:19 | PM.IMHP ---
H&P: HPI History of Present Illness Date/Time: 01/21/22 06:19 Chief Complaint: Face numbness, left arm numbness Narrative: 81-year-old female with a past medical history of ocular strokes, hypertension, hyperlipidemia, glaucoma, migraines and obstructive sleep apnea who presented to the ER from home via EMS due to sudden onset of right face numbness and left arm numbness. The patient reports that she was watching TV when suddenly she felt a funny sensation to the right side of her eye and numbness 2 or right lateral face. She reports that her tongue also felt numb and she thought that she was going to bite her tongue when she was trying to talk. she had some difficulty with enunciation. At the same time she had numbness of her left arm. They called EMS immediately and in route to the hospital the patient reports that her symptoms resolved. She denies any numbness or change in sensation of her left leg. 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 She had a similar episode with difficulty is speech in 2020 but left ER AMA without further evaluation because she was back to her baseline. She reports she does follow with a neurologist as outpatient due to trigeminal neuralgia. She reports her trigeminal neuralgia is in remission right now. But her neurologist at [place] has been following a spot on her brain for a little over the last year. She had her follow-up MRI in December and that spot on her brain was stable. He states that her neurologist never mentioned any evidence of strokes on her MRIs. She reports that she did feel lightheaded when the episode occurred per sensation of lightheadedness has went away. She denies any new vision changes. She denies any associated headache with her symptoms last night. Her symptoms lasted between 15 and 20 minutes and resolved before she came to the ER. She did not have any noticeable facial asymmetry. she reports that over the last 8 weeks she has had recurrence of her right hip pain that is similar to when she had a prior infection of her hip replacement. She ready has follow-up with her orthopedic surgeon arranged as outpatient. She is on chronic antibiotic therapy with Keflex. She has chronic urinary incontinence and night in wears pads. She has chronic urinary frequency but denies dysuria , hematuria or fevers. the patient's conjunctivae are red she states that her eyes are chronically dry. She reports that she has been on a baby aspirin daily for years. She has been out of her baby aspirin for the last 2 weeks.She did take 2 full-dose aspirin at home prior to calling EMS. Review of Systems Review of Systems: 12 systems were reviewed with pertinent positives and negatives per HPI. Except as documented in the HPI, all other systems were reviewed and are negative. [facility] Past Medical History Medical History (Updated 01/21/22 @ 06:53 by Sabina Ash DO) Dyslipidemia Glaucoma Gout Hypertension Ischemic optic neuropathy Migraine Obstructive sleep apnea on CPAP Trigeminal neuralgia Urinary incontinence in female Surgical History Surgical History (Updated 01/21/22 @ 06:53 by Sabina Ash DO) History of appendectomy History of bilateral carpal tunnel release History of cardiac catheterization several cardiac catheterizations without significant coronary disease History of section History of colonoscopy with polypectomy History of hysterectomy History of right hip replacement complicated by postop infection on chronic antibiotic therapy with Keflex Status post removal of thyroid nodule Status post trigger finger release x5 Family History Family History (Updated 01/21/22 @ 06:56 by Sabina Ash DO) Sibling Acute myocardial infarction Cerebrovascular accident Diabetes mellitus Breast cancer Father Diabetes mellitus Colon cancer Mother
[2022-01-21 08:00] VITALS: PULSE 66
[2022-01-21] MEDS: CEPHALEXIN 500 MG CAPSULE PO (08:37)
[2022-01-21] MEDS: ASPIRIN 81 MG ENTERIC TABLET PO (08:37)
[2022-01-21] MEDS: allopurinoL 100 MG TABLET PO (08:37)
[2022-01-21] MEDS: ROSUVASTATIN 10 MG TABLET PO (08:38)
[2022-01-21] MEDS: MAGNESIUM OXIDE 400 MG TABLET PO (08:38)
[2022-01-21] MEDS: CYANOCOBALAMIN 500 MCG TABLET PO (08:38)
[2022-01-21] MEDS: CYANOCOBALAMIN 1,000 MCG TABLET 2000 MCG PO (08:38)
[2022-01-21 08:39] VITALS: PULSE 70
[2022-01-21] MEDS: METOPROLOL SUCCINATE EXT REL 25 MG TABCR PO (08:39)
--- NOTE | 2022-01-21 09:13 | WPDNEURCNPN ---
Assessment and Plan Assessment and plan (1) Brain TIA: Code(s): G45.9 - Transient cerebral ischemic attack, unspecified Status: Acute Assessment and Plan: Susan Foster is a 81 year old female with a history of HTN, HLD, ischemic ocular neuropathy, trigeminal neuralgia, and LOLI who presented yesterday due to right facial and left upper extremity numbness. Concerning for possible TIA (would have to localize to brainstem given cross sensory symptoms). She does have a history of right trigeminal neuralgia as well as carpal tunnel syndrome in her left hand, which could also have been the cause of her symptoms. - MRI brain w/o contrast - MRA brain w/o contrast (patient reports contrast allergy) - Carotid doppler - Surface echo - Continue ASA 81mg - On Crestor 10mg - Check A1c and lipid panel Consult date: 01/21/22 Time Seen: 09:13 Reason for consult: TIA HPI: Susan Foster is a 81 year old female with a history of HTN, HLD, ischemic ocular neuropathy, trigeminal neuralgia, and LOLI who presented yesterday due to right facial and left upper extremity numbness. Her symptoms started at 1230 on 01/20. She initially felt the right side of her face go numb along with her tongue, and then the left arm. She found that her speech had been affected as well. Her symptoms had self-resolved after about 15 minutes while en route to [facility]. She usually takes ASA everyday, but has been out the past two weeks. In the ED her BP was 197/84. EKG showed sinus rhythm. Her CT head was negative. She had no focal deficits on exam except for baseline visual deficits from prior ocular strokes. She was admitted for further work-up of TIA. She follows with a Neurologist for her Trigeminal Neuralgia. She had a MRI recently and was told that there was a lesion that was noted that her doctor was going to surveillance. Patient at baseline has peripheral vision loss. She denies any new changes in her vision. She currently denies any numbness, weakness, dysphagia, speech changes. Review of Systems Constitutional: Constitutional: Reports no additional constitutional complaints and Denies weakness Eyes: Eyes: Reports as per HPI and Reports no additional eye complaints ENT: Denies Normal hearing present (wears hearing aids) and Denies dysphagia Cardiovascular: Cardiovascular: Reports no additional cardiovascular complaints Respiratory: Respiratory: Reports no additional respiratory complaints Gastrointestinal: Gastrointestinal: Reports constipation Genitourinary: Genitourinary: Reports nocturia and Reports urinary incontinence Musculoskeletal: Musculoskeletal: Reports arthralgias Integumentary/Breasts: Skin/Breast: Reports system reviewed and no additional complaints, except as docu Neurologic: Reports as per HPI Psychiatric: Psychiatric: Reports no additional psychiatric complaints PMFSH Past Medical History Medical History Dyslipidemia Glaucoma Gout Hypertension Ischemic optic neuropathy Migraine Obstructive sleep apnea on CPAP Trigeminal neuralgia Urinary incontinence in female Surgical History Surgical History History of appendectomy History of bilateral carpal tunnel release History of cardiac catheterization several cardiac catheterizations without significant coronary disease History of section History of colonoscopy with polypectomy History of hysterectomy History of right hip replacement complicated by postop infection on chronic antibiotic therapy with Keflex Status post removal of thyroid nodule Status post trigger finger release x5 Family History Family History Sibling Acute myocardial infarction Cerebrovascular accident Diabetes mellitus Breast cancer Father Diabetes mellitus Colon cancer Mother Breast cancer Colon cancer
[2022-01-21 13:00] VITALS: PULSE 74
[2022-01-21 14:00] VITALS: BP 146/72; PULSE 72; RESP 18; TEMP 36.2; O2SAT 99
[2022-01-21 15:51] LABS: Anion Gap 16 mmol/L (8-16); Blood Urea Nitrogen 21 mg/dL (7-17); Calcium 9.1 mg/dL (8.4-10.2); Carbon Dioxide 22 mmol/L (22-30); Chloride 102 mmol/L (98-107); Estimated CRCL calculation 56 ml/min; Estimated Glomerular Filt Rate > 60; Glucose 120 mg/dL (65-110); Potassium 3.9 mmol/L (3.4-5.0); Sodium 140 mmol/L (137-145)
--- NOTE | 2022-01-21 15:58 | PM.DS ---
DS: Admitting Diagnosis Discharge Date January 21, 2022 Admitting Diagnosis TIA DS: Discharge Diagnosis Discharge Diagnosis (1) Brain TIA: Code(s): G45.9 - Transient cerebral ischemic attack, unspecified Status: Acute (2) Hypertension: Code(s): I10 - Essential (primary) hypertension Status: Acute (3) Dyslipidemia: Code(s): E78.5 - Hyperlipidemia, unspecified Status: Acute DS: Summary Hospital Course Hospital Course: 81-year-old female with a past medical history of ocular strokes, hypertension, hyperlipidemia, glaucoma, migraines and obstructive sleep apnea who presented to the ER from home via EMS due to sudden onset of right face numbness and left arm numbness.? The patient reports that she was watching TV when suddenly she felt a funny sensation to the right side of her eye and numbness 2 or right lateral face.? She reports that her tongue also felt numb and she thought that she was going to bite her tongue when she was trying to talk. ? she had some difficulty with enunciation. ? At the same time she had numbness of her left arm. They called EMS immediately and in route to the hospital the patient reports that her symptoms resolved.? She denies any numbness or change in sensation of her left leg.? 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 She had a similar episode with difficulty is speech in 2020 but left ER AMA without further evaluation because she was back to her baseline.? She reports she does follow with a neurologist as outpatient due to trigeminal neuralgia.? She reports her trigeminal neuralgia is in remission right now.? But her neurologist at [place] has been following a spot on her brain for a little over the last year.? She had her follow-up MRI in December and that spot on her brain was stable.? He states that her neurologist never mentioned any evidence of strokes on her MRIs.? She reports that she did feel lightheaded when the episode occurred per sensation of lightheadedness has went away.? She denies any new vision changes.? She denies any associated headache with her symptoms last night.? Her symptoms lasted between 15 and 20 minutes and resolved before she came to the ER.? She did not have any noticeable facial asymmetry. she reports that over the last 8 weeks she has had recurrence of her right hip pain that is similar to when she had a prior infection of her hip replacement.? She ready has follow-up with her orthopedic surgeon arranged as outpatient.? She is on chronic antibiotic therapy with Keflex.? She has chronic urinary incontinence and night in wears pads.? She has chronic urinary frequency but denies dysuria , hematuria or fevers. the patient's conjunctivae are red she states that her eyes are chronically dry. She reports that she has been on a baby aspirin daily for years.? She has been out of her baby aspirin for the last 2 weeks.She did take 2 full-dose aspirin at home prior to calling EMS. Neurology was consulted and recommended MRI brain without contrast, carotid Dopplers, echo, continue baby aspirin, Crestor, check A1c and lipid panel. Of note, creatinine jumped up, this was rechecked and it resolved back down to 0.8. Patient has an appointment tomorrow morning and is requesting to be discharged tonight with close outpatient follow-up. Ambulatory orders for echo, A1c, lipid panel, recheck BMP all ordered. Time Spent with Patient Time attestation: Total time spent providing and/or coordinating discharge services: DS: Data Data Completed and Pending Labs on day of discharge: Labs from last 24 hours 01/21/22 01/20/22 01/20/22 15:21 21:05 20:11 WBC RBC Hgb Hct MCV MCH MCHC RDW Plt Count MPV Immature Gran % (Auto) Neut % (Auto) Lymph % (Auto) [place] % (Auto) Eos % (Auto) Baso % (Auto) Lymph # (Auto)
== END 2022-01-21 16:47 | disposition home or self-care (01) ==
LOC: ANHED 20:21 → ANH3MEDSUR 23:23
PROVIDERS: Admitting Provider Internal Medicine; Emergency Provider Emergency Medicine; PCP Internal Medicine; Visit Provider Student in an Organized Health Care Education/Training Program
DX: G45.9 Transient cerebral ischemic attack, unspecified (principal); I10 Essential (primary) hypertension; E78.5 Hyperlipidemia, unspecified; R42 Dizziness and giddiness; H40.9 Unspecified glaucoma; H47.019 Ischemic optic neuropathy, unspecified eye; G43.909 Migraine, unspecified, not intractable, without status migrainosus; G50.0 Trigeminal neuralgia; G47.33 Obstructive sleep apnea (adult) (pediatric); Z99.89 Dependence on other enabling machines and devices; R32 Unspecified urinary incontinence; R35.0 Frequency of micturition; M25.551 Pain in right hip; Z96.641 Presence of right artificial hip joint; Z86.73 Personal history of transient ischemic attack (TIA), and cerebral infarction without residual deficits; Z79.1 Long term (current) use of non-steroidal anti-inflammatories (NSAID); Z79.82 Long term (current) use of aspirin; Z79.2 Long term (current) use of antibiotics; Z79.899 Other long term (current) drug therapy; Z82.49 Family history of ischemic heart disease and other diseases of the circulatory system; Z82.3 Family history of stroke; Z83.3 Family history of diabetes mellitus
CPT/HCPCS: 36415; 70450; 70553; 71046; 80048; 81003; 82948; 84484; 85025; 85610; 85730; 93005; 93880; 96360; 99285; A9270; A9577; G0378; J7030

== ENCOUNTER 2022-08-05 08:12 | Outpatient (CLI) | payer MEDICARE, BC, SELFPAY ==
--- NOTE | 2022-09-04 11:43 | WPDSLEEPSTUD ---
Sleep Study Date of Study: 08/05/22 Ordering Provider: Sabino Zapata, DO Interpreting Physician: Aishwarya Barkley MD Sleep Study Type: Split Polysomnogram Height: 1.68 m Weight: 97.976 kg Body Mass Index: 34.8 Neck Circumference (inches): 16 Moody: 3 Reason for Sleep Study Obstructive sleep apnea * PSG 03/2008 - RDI 23, post treatment RDI 2.5 on 7 cm CPAP. BMI at time of this study is not known. Sleep History Susan Foster is an 82-year-old woman with obstructive sleep apnea who uses CPAP 7 cm with good compliance. She has had significant weight loss over the last 1-2 years. Her office note 06/27/2022 shows her weight was 102.1 kg. She reported that she gained 20 lb during the last year, had lost 40 to 50 lb since initial sleep test in 2007. She is sent for re-evaluation after weight loss. Dr. 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 At times she wakes up without her mask on, and has noticed that she did not have much difference in the quality of sleep or daytime fatigue. She does have hypertension so if she still has sleep apnea she does want to be treated for it. While using CPAP, she does not awaken from sleep feeling short of breath. While using CPAP, she does not awaken at night with heartburn, belching or coughing. She does not snore, she does not have trouble sleeping with a cold and she does not gasp for breath at night. She does not sweat excessively at night, she does not notice her heart pounding or beating irregularly at night. She does not fall asleep during the day, does not fall asleep involuntarily or while driving. She does not have loss of muscle tone with strong emotion. She does not have daytime difficulties due to excessive sleepiness. She denies feeling paralyzed on waking or falling asleep. She does not have vivid dreamlike scenes upon waking or falling asleep. She does not feel afraid to go to sleep. She rarely has nightmares. She frequently remembers her dreams. She occasionally has racing thoughts. She never feels sad or depressed. She rarely feels anxious. She rarely has muscular tension. She occasionally notices parts of her body jerking. She does not kick at night or have crawling or aching feelings in her legs. She occasionally has leg pain during the night. She does not have morning jaw pain. She occasionally grinds her teeth during sleep. She frequently is bothered by pain during the day. She occasionally is awakened by pain at night. She occasionally wakes up feeling stiff in the morning. She rarely wakes up with sore achy muscles. She occasionally wakes up with pain in the neck and spine. She has memory problems, headaches, fatigue and fainting spells. Normal bedtime is 8:00 p.m. falling asleep within 5 minutes. She typically wakes 4 times during the night just long enough to go to the bathroom. She wakes in the morning between 4 and 5:00 a.m.. she keeps the same schedule on weekends. She estimates getting between 7 and 9 hours of sleep regularly. She does not take naps in the afternoon or evening. She feels refreshed after sleeping with her CPAP. She feels better in the morning compared to other times of day. Habits: Never smoked tobacco. Caffeine 1 serving per day. No alcohol. No recreational substances. [facility] Past Medical History Medical History (Updated 09/04/22 @ 18:34 by Aishwarya Barkley MD) Dyslipidemia Glaucoma Gout Hypertension Ischemic optic neuropathy Migraine Obstructive sleep apnea Trigeminal neuralgia Urinary incontinence in female Surgical History Surgical History History of appendectomy History of bilateral carpal tunnel release History of cardiac catheterization several cardiac catheterizations without significant coronary disease History of section History of colonoscopy w
[2022-09-04 18:09] VITALS: BMI 34.8
== END 2022-08-06 07:11 | disposition home or self-care (01) ==
PROVIDERS: PCP Internal Medicine; Visit Provider Internal Medicine Pulmonary Disease
DX: G47.33 Obstructive sleep apnea (adult) (pediatric) (principal); I10 Essential (primary) hypertension; E78.5 Hyperlipidemia, unspecified
CPT/HCPCS: 95811

== ENCOUNTER → 2022-09-22 11:07 | Outpatient (CLI) | payer MEDICARE, BC, SELFPAY ==
--- NOTE | ~2022-09-22 | MR_ITS ---
EXAMINATION: MR knee LT wo con DATE: 09/22/2022 11:51 INDICATION: Left knee pain TECHNIQUE: Magnetic resonance imaging (MRI) of the left knee was performed without intravenous contra st. Sequences included coronal PD-weighted FSE, coronal PD-weighted FS FSE, sagittal T2-weighted FSE , sagittal PD-weighted FS FSE and axial PD weighted fat saturated FSE. COMPARISON: None. FINDINGS: Medial compartment: Medial extrusion of the medial meniscal body. Complex tear of the body and posterior horn. Extensive full and near full-thickness cartilage loss in the long the medial half of the medial tibial plateau suggesting early remodeling of the articular cortex and along the anterior to central weightbearing m edial femoral condyle with underlying subarticular edema-like signal change. Lateral compartment: Lateral meniscus is normal. Partial-thickness cartilage loss with mild chondral surface irregularity along the medial side of the lateral tibial plateau and the shoulder the intercondylar eminence. Pilo tional partial thickness cartilage loss with chondral surface irregularity and without degenerative s ubchondral changes along the weightbearing lateral femoral condyle. Patellofemoral compartment: 1 deep chondral ulceration at the patellar apical ridge and immediately adjacent portion of the media l and lateral patellar facets. Less severe partial thickness cartilage loss with scattered partial th ickness chondral fissuring at the peripheral medial and lateral patellar facets. There is mild subart icular edema-like signal change along the inferior margin of the lateral patellar facet. Deep chondra l ulceration and primarily along the caudal two thirds of the trochlea with scattered underlying mild cortical irregularity and small foci of subarticular edema-like signal change. Ligaments and tendons: Mild increased signal and somewhat disorganized appearance to the ligament fibers of the anterior cru ciate ligament which appears to follow a shallow course than typical relative to Blumensaat line cons istent with anterior cruciate ligament tear. And hypertrophic osteophytes along the all lateral side of the intercondylar notch is nodular there is some which appears to occur expected from the footplat e of the ligament. There is mild increased intrasubstance signal within the posterior cruciate ligame nt consistent with at least mild partial tear. The medial collateral ligament and fibular collateral ligament complex are normal. The extensor mechanism is normal. The visualized medial and lateral hams tring tendons as well as the iliotibial band are normal. Fluid: Moderate-sized left knee joint effusion. Small loose osteochondral body along with a small amount of fluoroscopy popliteal recess. Osseous/other: Bone alignment is normal. No fracture or pathologic marrow replacing process. Moderate size marginal osteophytes at the medial compartment and small marginal osteophytes in the lateral and patellofemora l compartments. IMPRESSION: 1. Complex medial meniscal tear. 2. Anterior cruciate ligament tear and at least mild partial tear of the posterior cruciate ligament. Correlate with physical exam to assess for degree of residual functional integrity. 3. 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 Reviewed, dictated and finalized at location A. IMPRESSION: 1. Complex medial meniscal tear. 2. Anterior cruciate ligament tear and at least mild partial tear of the senior media director ior cruciate ligament. Correlate with physical exam to assess for degree of res idual functional integrity. 3. Tricompartmental osteoarthritis, severe in t
== END ==
PROVIDERS: PCP Internal Medicine; Visit Provider Nurse Practitioner Family
DX: S83.232A Complex tear of medial meniscus, current injury, left knee, initial encounter (principal); S83.512A Sprain of anterior cruciate ligament of left knee, initial encounter; X58.XXXA Exposure to other specified factors, initial encounter; M17.12 Unilateral primary osteoarthritis, left knee
CPT/HCPCS: 73721

== ENCOUNTER 2023-03-22 12:58 | Emergency (ER) | payer MEDICARE, BC, SELFPAY ==
[2023-03-22 13:15] VITALS: BP 167/75; PULSE 70; RESP 20; TEMP 36.1; O2SAT 98
[2023-03-22] MEDS: FLUORESCEIN SOD 1 MG/STRIP (17:47)
[2023-03-22] MEDS: DACRIOSE EYE IRRIGATION 118 ML BOTTLE (17:47)
[2023-03-22] MEDS: TETRACAINE HCL 0.5% OPHTH SOLN 4 ML BTL 1 DROP (17:47)
--- NOTE | 2023-03-22 18:14 | ED.EYEPROB ---
HPI - Eye Problem General Chief complaint: Eye Problems Stated complaint: left eye redness Time Seen by Provider: 03/22/23 17:04 Source: patient Mode of arrival: ambulatory Limitations: no limitations History of Present Illness HPI Narrative: This is a 82 year old female that presents to the ER for left eye redness. Ongoing since yesterday. She woke up with it yesterday morning. Reports some irritation in the eye. No known injuries. Reports she feels like her vision is more blurry in that eye than usual. Reports she does see an eye doctor regularly. She wears glasses. Denies fever, flashes, floaters, pain or vomiting. Related Data Home Medications Medication Instructions Recorded Confirmed acetaminophen 500 mg tablet 500 mg PO Q6H PRN Pain 05/29/20 01/21/22 allopurinol 100 mg tablet 100 mg PO DAILY 05/29/20 01/21/22 aspirin 81 mg PO DAILY 05/29/20 01/21/22 cephalexin 500 mg capsule 500 mg PO BID 05/29/20 01/21/22 cyanocobalamin (B12)-cobamamide 2,500 eliseo sublingual DAILY 05/29/20 01/21/22 5,000 mcg-100 mcg sublingual lozenge (B12) mag ap-qspliai-oqmuzglsh-e-malia 400 mg PO DAILY 05/29/20 01/21/22 metoprolol succinate 25 mg 25 mg PO DAILY 05/29/20 01/21/22 tablet,extended release 24 hr rosuvastatin 20 mg tablet 10 mg PO DAILY 05/29/20 01/21/22 Daily Probiotic 1 tablet BYMOUTH 1XD 01/21/22 01/21/22 Allergies Allergy/AdvReac Type Severity Reaction Status Date / Time meperidine Allergy Mild Nausea and Verified 01/20/22 19:54 Vomiting tramadol AdvReac Nausea and Verified 01/20/22 19:54 Vomiting Contrast Media Allergy Unknown Unknown Uncoded 01/20/22 19:54 Review of Systems Review of Systems: CONSTITUTIONAL: Denies fever EYES: Reports visual changes, redness. Denies discharge. All systems reviewed & are unremarkable except as noted in HPI and below PMFSH Past Medical History Medical History (Updated 03/22/23 @ 18:16 by Nallely Cotto PA-C) Dyslipidemia Glaucoma Gout Hypertension Ischemic optic neuropathy Migraine Obstructive sleep apnea Trigeminal neuralgia Urinary incontinence in female Surgical History Surgical History History of appendectomy History of bilateral carpal tunnel release History of cardiac catheterization several cardiac catheterizations without significant coronary disease History of section History of colonoscopy with polypectomy History of hysterectomy History of right hip replacement complicated by postop infection on chronic antibiotic therapy with Keflex Status post removal of thyroid nodule Status post trigger finger release x5 Family History Family History Sibling Acute myocardial infarction Cerebrovascular accident Diabetes mellitus Breast cancer Father Diabetes mellitus Colon cancer Mother Breast cancer Colon cancer Social History Social History Social History: The patient lives in [place] with her of 60 years. They wrist 3 children who are healthy. 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 She has Been walking with a cane since she has had recurrence of her right hip pain. She is active in activities of daily life including gardening. Smoking status: Never smoker Alcohol intake: never Substance use: never Spiritual care concerns: No Exam Narrative: GENERAL: Well-appearing, well-nourished, and in no acute distress. HEAD: Normocephalic, atraumatic. EYES: PERRLA and EOMI. Conjunctival injection on the left. Eye pressures are 11 bilaterally. Visual acuity 20/50 in the right eye, 20/50 in the left eye. Eyelid everted, no foreign bodies noted. No fluorescein stain uptake ENT: Nares clear, no rhinorrhea or epistaxis. Mucous membranes moist. Oropharynx without tonsillar hypertrophy exudate or other lesions. Bilateral TMs pearly alford non-bulging NECK: Sup
[2023-03-22 18:23] VITALS: BP 160/70; PULSE 70; RESP 20; O2SAT 98
== END 2023-03-22 18:25 | disposition home or self-care (01) ==
PROVIDERS: Emergency Provider Physician Assistant; PCP Internal Medicine
DX: H11.32 Conjunctival hemorrhage, left eye (principal); E78.5 Hyperlipidemia, unspecified; I10 Essential (primary) hypertension
CPT/HCPCS: 99283; A9270

== ENCOUNTER 2023-05-05 10:30 | Outpatient (CLI) | payer MEDICARE, BC, SELFPAY ==
--- NOTE | ~2023-05-05 | MR_ITS ---
MRI of the brain Clinical History: Meningioma Technique: Axial and sagittal T1-weighted images were acquired. These were followed by axial T2-weigh didi, diffusion weighted, gradient, and FLAIR images. Following intravenous administration of 20 cc Mu ltiHance gadolinium, T1-weighted fat-sat imaging was performed in the axial, coronal, and sagittal pl anes. COMPARISON: 01/21/2022 Findings: There are 2 tiny foci of restricted diffusion in the right parietal lobe, suggestive tiny a cute infarcts. No intracranial hemorrhage or mass lesion identified. There are mild chronic microvasc ular ischemic changes in the periventricular white matter bilaterally. Ventricles and subarachnoid spaces are unremarkable. Orbits are unremarkable. Paranasal sinuses and m astoid air cells are clear. Major intracranial flow voids appear intact. Sagittal midline structures are intact. No abnormal postcontrast enhancement identified. IMPRESSION: 2 probable tiny foci of acute infarct in the right parietal lobe. Mild chronic microvascular ischemic change. No mass lesion evident. Reviewed, dictated and finalized at location . 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
== END 2023-05-05 10:31 | disposition home or self-care (01) ==
PROVIDERS: PCP Internal Medicine
DX: D32.9 Benign neoplasm of meninges, unspecified (principal)
CPT/HCPCS: 70553; A9577

== ENCOUNTER 2023-07-01 06:37 | Outpatient (CLI) | payer MEDICARE, BC, SELFPAY ==
--- NOTE | ~2023-07-01 | CT_ITS ---
EXAMINATION: CTA chest PE protocol DATE: 07/01/2023 07:16 INDICATION: Elevated d-dimer TECHNIQUE: Computed tomography angiography (CTA) of the chest was performed with 100 mL Omnipaque-350 intravenous contrast timed to evaluate the pulmonary arteries. Coronal maximum intensity projection 3D-reconstructions were created by the technologist. Automated exposure control and iterative reconst ruction technique were employed. Exam dose: 650.15 mGy-cm total exam DLP. COMPARISON: 01/20/2022 PA and lateral chest FINDINGS: There is diagnostic contrast enhancement of the pulmonary arteries and no evidence of pulmo nary embolism. Left thyroid goiter, with benign calcifications, extending into the superior mediastinum. No thoracic aortic aneurysm. There is thoracic aortic and great vessel and coronary artery calcificat ion. Normal heart size. No pericardial or pleural effusion. No hilar or mediastinal mass lesion or lymphadenopathy. There is old pulmonary granulomatous disease including calcified pulmonary granulomas, calcified righ t paratracheal and right hilar lymph nodes. No pulmonary infiltrate or consolidation or pulmonary mass lesion is detected. Small sliding hiatal hernia. Included portions of the adrenal glands are unremarkable. Diverticulosis of the colon. Degenerative disc disease in the lower cervical spine. Degenerative spurring of the thoracic and lumb ar spine. No suspicious osteolytic or osteoblastic lesions are noted. IMPRESSION: No evidence of pulmonary embolism Mild thyroid goiter Small sliding hiatal hernia Diverticulosis of the colon Reviewed, dictated and finalized at Location A. Reviewed, dictated and finalized at location B. MANAGER
[2023-07-01 07:04] LABS: Estimated Glomerular Filt Rate 47
== END 2023-07-01 06:38 | disposition home or self-care (01) ==
PROVIDERS: PCP Internal Medicine; Visit Provider Internal Medicine
DX: R79.1 Abnormal coagulation profile (principal); E04.9 Nontoxic goiter, unspecified; K44.9 Diaphragmatic hernia without obstruction or gangrene; K57.30 Diverticulosis of large intestine without perforation or abscess without bleeding
CPT/HCPCS: 71275; Q9967

== ENCOUNTER 2023-07-16 09:19 | Outpatient (CLI) | payer MEDICARE, BC, SELFPAY ==
--- NOTE | ~2023-07-16 | US_ITS ---
EXAMINATION: US thyroid DATE: 07/16/2023 10:06 INDICATION: Thyroid nodule. TECHNIQUE: Multiple ultrasound images of the thyroid were obtained. COMPARISON: Chest CT 07/01/2023 FINDINGS: The right thyroid lobe measures 5.0 x 1.8 x 1.9 cm. The left thyroid lobe measures 5.2 x 1.7 x 1.8 c m. In the right thyroid lobe, there is a 2.5 cm solid, hypoechoic, wider than tall nodule lobulated margin without echogenic foci (TI-RADS TR4). In the left thyroid lobe, there is an 8 mm solid, hypoec hoic, wider than tall nodule with smooth margin without echogenic foci (TR4). In the inferior left th yroid lobe, there is a 3.8 cm solid, isoechoic, wider than tall nodule with ill-defined margin withou t echogenic foci (TR3). IMPRESSION: 1. Multinodular goiter. Consider ultrasound-guided fine-needle aspiration of 2 nodules if clinically indicated given the patient's age. Reviewed, dictated and finalized at location A. ER
== END 2023-07-16 09:20 | disposition home or self-care (01) ==
PROVIDERS: PCP Internal Medicine; Visit Provider Internal Medicine
DX: E04.2 Nontoxic multinodular goiter (principal)
CPT/HCPCS: 76536

== ENCOUNTER 2023-12-31 09:30 | Outpatient (CLI) | payer MEDICARE, BC, SELFPAY ==
--- NOTE | ~2023-12-31 | XR_ITS ---
3 VIEWS LUMBAR SPINE Ordering provider: Tristin Smith, History: . Pain in rt hip . Comparison: May 04, 2021 FINDINGS: VERTEBRAL BODIES:Lumbarization of S1. No visible fracture or subluxation. Degenerative changes of th e spine. DISK SPACES: Degenerative disc disease at the level of L4-L5 and L5-S1. Facet joint disease at the le jolanta of L4-L5 and L5-S1. SOFT TISSUES: Normal. IMPRESSION: No acute osseous abnormality lumbar spine. Multilevel degenerative disc disease. Reviewed, dictated and finalized at location A.
== END 2023-12-31 09:31 | disposition home or self-care (01) ==
PROVIDERS: PCP Internal Medicine; Visit Provider Internal Medicine
DX: M25.551 Pain in right hip (principal); M51.36 Other intervertebral disc degeneration, lumbar region
CPT/HCPCS: 72100

== ENCOUNTER 2024-03-10 09:22 | Outpatient (CLI) | payer MEDICARE, BC, SELFPAY ==
--- NOTE | ~2024-03-10 | XR_ITS ---
EXAMINATION: XR chest 2V 03/10/2024 09:50 INDICATION: Dyspnea PROCEDURE: 2 view chest COMPARISON: Comparison to multiple prior studies sequentially, with oldest reviewed study dated 07/2019. FINDINGS: The lungs are clear. The cardiomediastinal silhouette is within normal limits. There are no pleural effusions. There is no pneumothorax suspected. IMPRESSION: 1: NO ACUTE CARDIOPULMONARY DISEASE. Reviewed, dictated and finalized at location B.
== END 2024-03-10 09:23 | disposition home or self-care (01) ==
PROVIDERS: PCP Internal Medicine; Visit Provider Internal Medicine
DX: R06.00 Dyspnea, unspecified (principal)
CPT/HCPCS: 71046

== ENCOUNTER 2024-03-23 08:43 | Outpatient (CLI) | payer MEDICARE, BC, SELFPAY ==
--- NOTE | ~2024-03-23 | XR_ITS ---
XR chest 2V Ordering provider: Tristin Smith, History: 83 years Female with . D DIMER ABOVE REF RANGE . Comparison: None. FINDINGS: MEDIASTINUM: The cardiac silhouette is not enlarged. LUNGS: No infiltrates, effusions or pneumothorax. Prominent bronchovascular markings in both lower lo bes more on the right side. Early pneumonia in the right lung base is not excluded. Granuloma is seen in the right lower lobe area. OTHER: No free air under the diaphragm. Degenerative spine IMPRESSION: Increased bronchovascular markings in the lower lobes more on the right side. Early pneumonia is not excluded. Follow-up advised. Reviewed, dictated and finalized at location A. 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 E blanca pneumonia is not excluded. Follow-up advised.
--- NOTE | ~2024-03-23 | NM_ITS ---
EXAMINATION: NM lung vent and perfusion DATE: 03/23/2024 09:21 INDICATION: Dyspnea. Abnormal d-dimer. TECHNIQUE: 20.3 mCi Xenon-133 was given for ventilation images. 5.5 mCi Tc-99m MAA was administered i ntravenously for perfusion images. Scintigraphic images of the chest were obtained. COMPARISON: Chest 2 views 03/23/2024 FINDINGS: Ventilation images demonstrate small defects in the upper lobes and lower lobes. There is diffuse ret ention bilaterally. Perfusion images demonstrate a small defect in left lower lobe. IMPRESSION: 1. Low probability for pulmonary embolism. Reviewed, dictated and finalized at location A. 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
== END 2024-03-23 08:44 | disposition home or self-care (01) ==
LOC: ANHIMG 08:49
PROVIDERS: PCP Internal Medicine; Visit Provider Internal Medicine
DX: R79.1 Abnormal coagulation profile (principal)
CPT/HCPCS: 71046; 78582; A9540; A9558

== ENCOUNTER 2024-05-20 12:11 | Outpatient (CLI) | payer MEDICARE, BC, SELFPAY ==
--- NOTE | ~2024-05-20 | XR_ITS ---
CHEST RADIOGRAPH, PA AND LATERAL CLINICAL HISTORY: pneumonia . COMPARISON: 03/23/2024 TECHNIQUE: PA and lateral views of the chest. FINDINGS Small hiatal hernia is redemonstrated. Prominent cardiac fat pad, unchanged from prior The remainder of the cardiomediastinal silhouette is otherwise unremarkable. The lungs are clear. Visualized osseous structures and soft tissues are unremarkable. IMPRESSION: No focal infiltrate or effusion. Reviewed, dictated and finalized at location A. NSION ASSOCIATE
== END 2024-05-20 12:12 | disposition home or self-care (01) ==
PROVIDERS: PCP Internal Medicine; Visit Provider Internal Medicine
DX: J18.9 Pneumonia, unspecified organism (principal)
CPT/HCPCS: 71046

== ENCOUNTER 2024-06-21 10:23 | Inpatient (IN) | payer MEDICARE, BC, SELFPAY ==
--- NOTE | ~2024-06-21 | CT_ITS ---
EXAMINATION: CT brain wo con DATE: 06/21/2024 10:49 INDICATION: Neurologic deficits TECHNIQUE: Computed tomography (CT) of the head was performed without intravenous contrast. Sagittal and coronal reconstructions were performed. The mA was adjusted according to patient size. Iterative reconstruction technique was employed. The dose-length product was 605.33 mGy-cm. COMPARISON: Brain MR dated 05/05/[address] dated 01/20/2022 FINDINGS: No acute intracranial hemorrhage, acute infarction or abnormal extra axial fluid collection. There is mild scattered white matter hypoattenuation consistent with chronic small vessel ischemic disease. S ymmetric prominence of the sulci consistent with mild age-appropriate diffuse cerebral volume loss. V entricles are normal and symmetric. No mass/mass effect. Intracranial calcified cerebral atherosclero sis is noted. The orbits, paranasal sinuses and mastoid air cells are normal. IMPRESSION: 1. No acute intracranial process. 2. Age-related changes including mild diffuse volume loss and mild scattered white matter hypoattenua tion consistent with chronic small vessel ischemic disease. Reviewed, dictated and finalized at location A. MANAGEMENT ENGINEER IMPRESSION: 1. No acute intracranial process. 2. Age-related changes including mild diffuse volume loss and mild scattered wh ite matter hypoattenuation consistent with chronic small vessel ischemic diseas e.
--- NOTE | ~2024-06-21 | XR_ITS ---
EXAMINATION: XR chest 1V DATE: 06/21/2024 10:55 INDICATION: Neurological deficit. TECHNIQUE: A single frontal view of the chest was obtained. COMPARISON: Chest 2 views 05/20/2024, chest CT 07/01/2023 FINDINGS: There is mild atelectasis at left lung base. There are airspace opacities in right lower donaldo ng zone. No pleural effusion or pneumothorax. The heart size is normal. IMPRESSION: 1. Airspace opacities in right lower lung zone, consistent with atelectasis versus pneumonia. Reviewed, dictated and finalized at location A. R REBUILDER IMPRESSION: 1. Airspace opacities in right lower lung zone, consistent with atelectasis andriy agustina pneumonia.
--- NOTE | ~2024-06-21 | MR_ITS ---
MRI of the brain Clinical History: TIA Technique: Axial and sagittal T1-weighted images were acquired. These were followed by axial T2-weigh didi, diffusion weighted, gradient, and FLAIR images. COMPARISON: 05/05/2023 Findings: There is no acute infarct, intracranial hemorrhage, or mass lesion. Moderate chronic microv ascular ischemic change in the periventricular white matter similar to prior exam. Ventricles and subarachnoid spaces are unremarkable. Orbits are unremarkable. Paranasal sinuses and m astoid air cells are clear. Major intracranial flow voids are grossly intact. Sagittal midline structures are intact. IMPRESSION: No acute infarct, intracranial hemorrhage, or mass lesion. Moderate chronic microvascular ischemic change. Reviewed, dictated and finalized at location M. CTOR OF VOLUNTEER SERVICES
--- NOTE | ~2024-06-21 | US_ITS ---
EXAMINATION: US carotid duplex BI DATE: 06/21/2024 12:40 INDICATION: Transient ischemic episode. Carotid atherosclerosis and stenosis. TECHNIQUE: Grayscale, color Doppler, and pulsed Doppler images of the cervical carotid arteries were obtained. The degree of vessel stenosis is placed in one of the following categories: normal, <50%, 5 0-69%, >=70% but less than near-occlusion, near-occlusion, or total occlusion. Note that percent sten osis relative to normal distal artery lumen diameter is indirectly measured from velocity measurement s as described by Justin, et al. Radiology 2003; [id number]. COMPARISON: None. FINDINGS: RIGHT: The right common carotid artery (CCA) peak systolic velocity (PSV) is 77 cm/s. The right internal car otid artery (ICA) PSV is 54 cm/s. The right ICA end-diastolic velocity (EDV) is 11 cm/s. The right IC A/CCA PSV ratio is 0.7. Grayscale and color Doppler images yield an estimate of <50% diameter reducti on from plaque in the ICA. The external carotid artery (ECA) PSV is 52 cm/s. There is antegrade flow in the right vertebral artery. LEFT: The left CCA PSV is 94 cm/s. The left ICA PSV is 90 cm/s. The left ICA EDV is 21 cm/s. The left ICA/C CA PSV ratio is 1.0. Grayscale and color Doppler images yield an estimate of <50% diameter reduction from plaque in the ICA. The ECA PSV is 72 cm/s. There is antegrade flow in the left vertebral artery. IMPRESSION: 1. <50% stenosis in the right internal carotid artery. 2. <50% stenosis in the left internal carotid artery. Reviewed, dictated and finalized at location A. R VEHICLE ASSEMBLER
[2024-06-21 10:19] VITALS: BP 168/88; PULSE 65; RESP 16; TEMP 36.4; O2SAT 100
--- NOTE | 2024-06-21 10:28 | ECG_ITS ---
Test Date: 2024-06-21 10:57:06 Measurements Intervals [place] Rate: 63 P: 60 [place]: 201 QRS: 36 QRSD: 95 T: 53 QT: 410 QTc: 420 Interpretive Statements SINUS RHYTHM BASELINE ARTIFACT- I, II, III, AVR, AVL, AVF NORMAL ECG No previous ECG available for comparison Electronically Signed On 06-21-2024 11:08:27 VICE PRESIDENT OF INSTRUCTION by Zeferino Guardado D.O.
[2024-06-21 10:39] LABS: Glucose Point of Care 93 mg/dl (65-105)
[2024-06-21 10:40] VITALS: O2SAT 100
[2024-06-21 11:07] LABS: Basophils Percent Auto 0.5 % (0.2-1.2); Eosinophils Absolute Auto 0.3 K/mm3 (0-0.3); Eosinophils Percent Auto 3.5 % (0-4.4); Hematocrit 35.1 % (37.0-47.0); Hemoglobin 11.9 g/dL (12.0-15.0); Immature Granulocyte Absolute 0.03 K/mm3 (0.00-0.031); Immature Granulocyte Percent A 0.4 % (0-0.5); Lymphocytes Absolute Auto 1.86 K/mm3 (0.9-3.2); Lymphocytes Percent Auto 24.3 % (18.3-44.2); Mean Corpuscular HGB Conc 33.9 g/dl (32-36); Mean Corpuscular Hemoglobin 33.1 pg (26-34); Mean Corpuscular Volume 97.8 fl (80-100); Monocytes Absolute Auto 0.7 K/mm3 (0.1-0.6); Neutrophils Absolute Auto 4.8 K/mm3 (1.3-6.7); Neutrophils Percent Auto 62.3 % (45.5-73.1); Platelet Count Result 304 k/mm3 (150-375); Red Blood Count 3.59 M/mm3 (4.2-5.4); Red Cell Distribution Width 12.3 % (11.5-14.5); White Blood Count 7.7 K/mm3 (4.5-10.0)
[2024-06-21 11:19] LABS: Alanine Aminotransferase 18 U/L (6-35); Albumin Level 4.1 g/dL (3.5-5.1); Alkaline Phosphatase 98 U/L (38-126); Anion Gap 10 mmol/L (4-12); Aspartate Amino Transferase 22 U/L (14-36); Bilirubin,Total 0.5 mg/dL (0.2-1.3); Blood Urea Nitrogen 23 mg/dL (7-17); Calcium 8.7 mg/dL (8.4-10.2); Carbon Dioxide 26 mmol/L (22-30); Chloride 96 mmol/L (98-107); Estimated CRCL calculation 50 ml/min; Estimated Glomerular Filt Rate > 60; Glucose 97 mg/dL (65-110); Potassium 4.3 mmol/L (3.4-5.0); Sodium 132 mmol/L (137-145)
[2024-06-21 11:28] LABS: Troponin I < 0.012 ng/mL (0.000-0.034)
[2024-06-21 11:30] LABS: INR 1.1; Prothrombin Time 14.7 Seconds (11.1-14.7)
--- NOTE | 2024-06-21 11:40 | ED_ITS ---
HPI - Neuro Symptoms/Deficit General Chief Complaint: Neuro Symptoms/Deficit Stated Complaint: Diff speaking Time Seen by Provider: 06/21/24 10:46 History of Present Illness HPI Narrative: 83-year-old with a history of hypertension, TIA was brought in by EMS from home with a complaint of sudden onset of left-sided facial droop and slurred speech it started about 10:00 a.m. while she was talking to her daughter. Her noticed a droop on the left side of face however by the time she got to the ER her symptoms subsided she is on 81 mg of aspirin. She presently denies having any headache or chest pain or motor weakness. Onset (ago): hour(s) (1.5) Timing confirmed by: spouse Location: speech and left face History of same: Yes Severity: moderate Relieving factors: none Exacerbating factors: none Associated symptoms: denies other symptoms Related Data Home Medications ?Medication ?Instructions ?Recorded ?Confirmed ?Last Taken ?Type acetaminophen 500 mg tablet 500 mg PO Q6H PRN Pain 05/29/20 01/21/22 Unknown History allopurinol 100 mg tablet 100 mg PO DAILY 05/29/20 01/21/22 01/20/22 History aspirin 81 mg PO DAILY 05/29/20 01/21/22 05/29/20 History 81 mg cephalexin 500 mg capsule 500 mg PO BID 05/29/20 01/21/22 01/20/22 History cyanocobalamin (B12)-cobamamide 2,500 eliseo sublingual DAILY 05/29/20 01/21/22 01/20/22 History 5,000 mcg-100 mcg sublingual lozenge (B12) mag gv-dtivsvs-ykisozagu-e-malia 400 mg PO DAILY 05/29/20 01/21/22 01/20/22 History metoprolol succinate 25 mg 25 mg PO DAILY 05/29/20 01/21/22 01/20/22 History tablet,extended release 24 hr rosuvastatin 20 mg tablet 10 mg PO DAILY 05/29/20 01/21/22 05/28/20 History 20 mg Daily Probiotic 1 tablet BYMOUTH 1XD 01/21/22 01/21/22 01/20/22 History Allergies Allergy/AdvReac Type Severity Reaction Status Date / Time meperidine Allergy Mild Nausea and Verified 01/20/22 19:54 Vomiting tramadol AdvReac Nausea and Verified 01/20/22 19:54 Vomiting Contrast Media Allergy Unknown Unknown Uncoded 01/20/22 19:54 Review of Systems 2 Review of Systems: All systems reviewed & are unremarkable except as noted in HPI and below Constitutional: Constitutional: Reports no additional constitutional complaints Eyes: Eyes: Reports no additional eye complaints ENT: Reports system reviewed and no additional complaints, except as documented Cardiovascular: Cardiovascular: Reports no additional cardiovascular complaints Respiratory: Respiratory: Reports no additional respiratory complaints Gastrointestinal: Gastrointestinal: Reports no additional gastrointestinal complaints Musculoskeletal: Musculoskeletal: Reports no additional musculoskeletal complaints Neurologic: Reports as per HPI Psychiatric: Psychiatric: Reports no additional psychiatric complaints PMFSH Past Medical History Medical History (Updated 06/21/24 @ 11:49 by Sandoval Velez MD) Obstructive sleep apnea Migraine Gout Trigeminal neuralgia Urinary incontinence in female Glaucoma Ischemic optic neuropathy Dyslipidemia Hypertension Surgical History Surgical History History of bilateral carpal tunnel release History of right hip replacement complicated by postop infection on chronic antibiotic therapy with Keflex Status post removal of thyroid nodule History of colonoscopy with polypectomy Status post trigger finger release x5 History of hysterectomy History of appendectomy History of cardiac catheterization several cardiac catheterizations without significant coronary disease History of section Family History Family History Sibling Acute myocardial infarction Cerebrovascular accident Diabetes mellitus Breast cancer Father Diabetes mellitus Colon cancer Mother Breast cancer Colon cancer Social History Social History Social History: The patient lives in [place] with her of 60 years. They wrist 3 children who are healthy. 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 She has Been walking with a cane since she has had recurrence of her right hip pain. She is active in activities of daily life including gardening. Smoking status: Never smoker Alcohol intake: never Substance use: never Spiritual care concerns: No Exam 2 Narrative: GENERAL: Well-appearing, well-nourished, and in no acute distress. HEAD: Normocephalic, atraumatic. EYES: PERRLA and EOMI. ENT: Nares clear, no rhinorrhea or epistaxis. Mucous membranes moist. NECK: Supple. CHEST: Clear to auscultation. No respiratory distress. HEART: Regular rate and rhythm. No murmur heard. Normal peripheral pulses. ABDOMEN: Soft, nontender, nondistended, normal active bowel sounds. EXTREMITIES: Normal range of motion. No edema. SKIN: Warm, dry, no rash. NEURO: Alert and oriented x3. Minor facial droop on the left details look into NIH scale PSYCH: Normal mood and affect. Course Course Emergency Course: Patient remains asymptomatic here in the ER her symptoms much resolved informed her and the family about the lab work, CT findings agreeable with admission. I discussed with Dr. Monteiro will consult. Notified Dr. Farfan will accept pt. unfortunately CTA could not be done because of contrast allergy Vital Signs Vital signs: Vital Signs Temperature 36.4 C 06/21/24 10:19 Pulse Rate 65 06/21/24 10:19 Respiratory Rate 16 06/21/24 10:19 Blood Pressure 168/88 H 06/21/24 10:19 Pulse Oximetry 100 06/21/24 10:19 Oxygen Delivery Room Air 06/21/24 10:19 Temperature 36.4 C 06/21/24 10:19 Pulse Rate 65 06/21/24 10:19 Respiratory Rate 16 06/21/24 10:19 Blood Pressure 168/88 H 06/21/24 10:19 Pulse Oximetry 100 06/21/24 10:40 Oxygen Delivery Room Air 06/21/24 10:19 MDM - Neuro Symptoms/Deficit Differential Diagnosis Differential diagnosis: Likely cerebrovascular accident and transient cerebral ischemia Medical Records Attestation: I reviewed the patient's medical records. Lab Data Attestation: I reviewed the patient's lab results. 06/21/24 10:58 06/21/24 10:58 Labs: Lab Results 06/21/24 06/21/24 Range/Units 10:34 10:58 WBC 7.7 (4.5-10.0) K/mm3 RBC 3.59 L (4.2-5.4) M/mm3 Hgb 11.9 L (12.0-15.0) g/dL Hct 35.1 L (37.0-47.0) % MCV 97.8 (80-100) fl MCH 33.1 (26-34) pg MCHC 33.9 (32-36) g/dl RDW 12.3 (11.5-14.5) % Plt Count 304 (150-375) k/mm3 MPV 10.0 (7.4-10.4) fl Immature Gran % (Auto) 0.4 (0-0.5) % Neut % (Auto) 62.3 (45.5-73.1) % Lymph % (Auto) 24.3 (18.3-44.2) % [place] % (Auto) 9.0 H (2.6-8.5) % Eos % (Auto) 3.5 (0-4.4) % Baso % (Auto) 0.5 (0.2-1.2) % Lymph # (Auto) 1.86 (0.9-3.2) K/mm3 [place] # (Auto) 0.7 H (0.1-0.6) K/mm3 Eos # (Auto) 0.3 (0-0.3) K/mm3 Baso # (Auto) 0.0 (0.0-0.1) K/mm3 Abs Immat Gran (auto) 0.03 (0.00-0.031) K/mm3 Absolute Neuts (auto) 4.8 (1.3-6.7) K/mm3 Absolute Nucleated RBC 0.000 (0.0-0.012) K/mm3 Nucleated RBC % 0.0 (0.0-0.2) % PT 14.7 (11.1-14.7) Seconds INR 1.1 APTT 30.0 (22.3-36.8) Seconds Sodium 132 L (137-145) mmol/L Potassium 4.3 (3.4-5.0) mmol/L Chloride 96 L (98-107) mmol/L Carbon Dioxide 26 (22-30) mmol/L Anion Gap 10 (4-12) mmol/L BUN 23 H (7-17) mg/dL Creatinine 0.86 (0.7-1.0) mg/dL Estim Creat Clear Calc 50 ml/min Estimated GFR > 60 (59 - ) Glucose 97 (65-110) mg/dL POC Capillary Glucose 93 (65-105) mg/dl Calcium 8.7 (8.4-10.2) mg/dL Total Bilirubin 0.5 (0.2-1.3) mg/dL AST 22 (14-36) U/L ALT 18 (6-35) U/L Alkaline Phosphatase 98 (38-126) U/L Troponin I < 0.012 (0.000-0.034) ng/mL Total Protein 7.0 (6.3-8.2) g/dL Albumin 4.1 (3.5-5.1) g/dL Imaging Data Radiologist's impression: ITS Impressions Chest X-Ray 06/21/24 10:55 IMPRESSION: 1. Airspace opacities in right lower lung zone, consistent with atelectasis versus pneumonia. Head CT 06/21/24 11:13 IMPRESSION: 1. No acute intracranial process. 2. Age-related changes including mild diffuse volume loss and mild scattered white matter hypoattenuation consistent with chronic small vessel ischemic disease. ECG Data EKG #1: ECG completion date: 06/21/24 ECG completion time: 10:57 EKG Interpretation: normal rate (63), sinus rhythm, no ST changes, NL axis and no acute changes Discharge Plan Discharge Clinical Impression: Transient cerebral ischemia Patient Disposition: Still a Patient Condition: Stable Patient Language: [place] Prescriptions: No Action Daily Probiotic 1 tablet BYMOUTH 1XD allopurinol 100 mg tablet 100 mg PO DAILY acetaminophen 500 mg Tablet 500 mg PO Q6H PRN (Reason: Pain) cephalexin 500 mg Capsule 500 mg PO BID metoprolol succinate 25 mg Tablet Extended Release 24 Hr 25 mg PO DAILY rosuvastatin 20 mg Tablet 10 mg PO DAILY aspirin 81 mg tablet 81 mg PO DAILY B12 5,000-100 mcg Lozenge 2,500 eliseo SUBLINGUAL DAILY mag jm-pcxxkko-akhusrgll-e-malia 400 mg tablet 400 mg PO DAILY Follow-up/Referrals: Luis,MD Tristin [Primary Care Provider] - Time of Disposition: 11:41 Quality Stroke Date of last known normal: 06/21/24 Time of last known normal: 10:00 Stroke Scale Stroke Scale 1: Stroke scale date:: 06/21/24 Stroke scale time:: 10:25 1a Level of consciousness: alert-0 1b Level of consciousness questions: answers both correctly-0 1c Level of consciousness commands: obeys both correctly-0 2 Best gaze: normal-0 3 Visual: no visual loss-0 4 Facial palsy: minor paralysis-1 5a Motor: left arm: no drift-0 5b Motor: right arm: no drift-0 6a Motor: left leg: no drift-0 6b Motor: right leg: no drift-0 7 Limb ataxia: absent-0 8 Sensory: normal-0 9 Best language: no aphasia-0 10 Dysarthria: normal-0 11 Extinction and inattention: no abnormality-0 Level:: 1
--- OUTSIDE RECORDS SUMMARY | 2024-06-21 11:42 | XMS_ITS | Referral Summary ---
Author Organization [facility] Address [address] [place] [address] Care Team Providers Care Refueler Name Role Phone Tristin Smith MD Primary Care Provider [phone]- [phone] Yoly Urbina RN Unavailable Unavailable Aishwarya Connolly RN Unavailable Unavailable Aishwarya Connolly RN Unavailable Unavailable Aishwarya Connolly RN Unavailable Unavailable Aishwarya Connolly RN Unavailable Unavailable Encounters Date Type Department Care Team Description 04/27/2024 8:40 AM MACHINE DEICER ELEMENT WINDER - 04/27/2024 11:59 PM MACHINE [employer]MENT W[employer]ER Hospital Encounter [id number] [address] [place] [address] [address] [place] [address] Aftercare following left knee joint replacement surgery Discharge Disposition: Discharge to home or self care 04/27/2024 9:10 AM MACHINE [employer]IC[employer]LEMENT WINDER Office Visit [facility] Orthopaedic Surgery [address] [place] [address] Medical Office Building [address] [place] [address] Dexter Torres MD Aftercare following left knee joint replacement surgery (Primary Dx) 04/18/2024 Telephone [facility] Infectious Diseases [address] [place] [address] [address] [place] [address] Katarina Carty CMA 04/12/2024 9:00 AM MACHINE [employer] WINDER Office Visit [facility] Neurology [address] [place] [address] [address] [place] [address] Vasu Tello Si, MD Trigeminal neuralgia (Primary Dx); Migraine without status migrainosus, not intractable, unspecified migraine type 03/24/2024 Telephone [facility] Neurology [facility] [address] [place] [address] Vasu Tello Si, MD Pain Management referral 03/23/2024 12:48 PM MACHINE [employer] WINDER - 03/23/2024 2:26 PM MACHINE [employer] WINDER Emergency [facility] Emergency Department [address] [place] [id number] Discharge Disposition: Left without being seen from Last 3 Months Allergies Active Allergy Reactions Criticality Noted Date Comments Butorphanol Itching,Stomach upset Low 03/08/2019 Gabapentin Other (See comments),Mental status changes Low 09/14/2019 Loss of memory Hydrocodone Nausea & Vomiting,Nausea And Vomiting Low 03/30/2020 Iodinated Contrast Media Hives Medium Iodine Hives Medium 03/08/2019 Lisinopril Cough Low Meperidine Hives,Stomach upset Medium 03/08/2019 _demorol, stadol Oxycodone Vomiting Low 08/12/2018 Medications metoprolol XL (TOPROL-XL) 25 mg 24 hr tabletIndication s:hypertension Take 1 tablet (25 mg total) by mouth every morning 8 Active latanoprost (XALATAN) 0.005 % ophthalmic solutionIndicati ons:open angle glaucoma Administer 1 drop into both eyes nightly 8 Active MAGOX 400 mg (241.3 mg magnesium) tabletIndication s:hypomagnesemia ,supplement Take 1 tablet (400 mg total) by mouth every morning 0 9 Active cyanocobalamin (Vitamin B-12) 1,000 mcg tabletIndication s:Prevention of Vitamin B12 Deficiency,suppl ement Take 1 tablet (1,000 mcg total) by mouth every morning Active allopurinoL (ZYLOPRIM) 100 mg tabletIndication s:prevention of acute gout attack Take 1 tablet (100 mg total) by mouth every morning Active nitroglycerin (NITROSTAT) 0.[address] 1 tablet (0.4 mg total) under the tongue every 5 (five) minutes as needed for chest pain 25 tablet 3 1 Active brimonidine (ALPHAGAN) 0.2 % ophthalmic solution 1 drop 2 (two) times a day 3 Active aspirin 81 mg enteric coated tablet Take 1 tablet (81 mg total) by mouth daily Active albuterol HFA (PROVENTIL HFA,VENTOLIN HFA,PROAIR HFA) 90 mcg/actuation inhaler INHALE 2 PUFFS BY MOUTH EVERY 8 HOURS NEEDED 4 Active carBAMazepine (TEGretol) 200 mg tablet Take 1 tablet (200 mg total) by mouth 2 (two) times a day 60 tablet 2 4 07/11/19 25 Active cephalexin (KEFLEX) 500 mg capsuleIndicatio ns:Bone/Joint Infection,Chroni c Suppression Take 1 capsule (500 mg total) by mouth 2 (two) times a day 60 capsule 5 4 10/17/19 25 Active Active Problems Problem Noted Date Diagnosed Date Positive D-dimer 06/28/2023 Allergy to contrast media (used for diagnostic x -rays) 06/28/2023 Osteoarthritis of knee 06/14/2023 Mixed hyperlipidemia 04/17/2023 Syncope and collapse 04/01/2022 Dizziness 04/01/2022 On release specialist drug therapy 01/23/2022 Dyslipidemia 01/15/2022 Type 2 diabetes mellitus wit hout complication, without long-term current use of insulin ([facility]) 01/15/2022 Infected hardware in right leg 01/15/2022 Intermittent claudication 01/23/2021 Mammogram abnormal 10/23/2020 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 10/23/2020 Carotid artery stenosis 04/26/2020 Abnormal findings on cardiac catheterization 11/2019 Overview (04/23/2020): Added automatically from request for surgery [id number] Jaw pain 04/05/2020 SOB (shortness of breath) on exertion 04/03/2020 Overview (04/03/2020): Added automatically from request for surgery [id number] Recurrent syncope 04/03/2020 Overview (04/03/2020): Added automatically from request for surgery [id number] Anemia, unspecified 03/08/2020 Hypertensive chronic kidney disease with stage 1 through stage 4 chronic kidney disease, or unspecified chronic kidney disease 03/08/2020 Frequency of micturition 03/08/2020 History of falling 03/08/2020 Infection of right prosthetic hip joint 03/08/20 20 Assessment & Plan (07/30/2023 3:25 PM CDT): - Doing well on PO Keflex with no concern for recurrent infection today. Surgical incision remains well healed without abnormality. Recently underwent L TKA and has recovered well without issues. 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 Plan to continue for the foreseeable future due to risk of recurrent infection - Discussed with patient the rational for treatment, culture results, risk of recurrent infection, signs/symptoms of recurrent infection, and to contact ID clinic with any questions or concerns Assessment & Plan (05/02/2022 11:42 AM MACHINE DEICER ELEMENT WINDER): - Doing well on PO Keflex with no concern for recurrent infection today. She does have some pain with movement of right hip but I do not feel this is due to infection. She had MRI a few months ago which was normal. No other signs or symptoms of infection. I offered her physical therapy referral but she declined at this time. 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 Plan to continue for the foreseeable future due to risk of recurrent infection - Discussed with patient the rational for treatment, culture results, risk of recurrent infection, signs/symptoms of recurrent infection, and to contact ID clinic with any questions or concerns Assessment & Plan (04/29/2021 9:35 AM MACHINE DEICER ELEMENT WINDER): - Doing well on PO Keflex with no concern for recurrent infection today. She has noticed some increased intermittent pain to her right hip over the past few weeks but incision remains well healed and she has no other signs or symptoms of infection. 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 Plan to continue for the foreseeable future due to risk of recurrent infection - For her increased pain today it does not seem to be related to infection as it is intermittent and she has no other concerning signs or symptoms. Will obtain ESR and CRP with todays labs in addition to CBC and CMP. If elevated inflammatory markers will consider imaging. She will contact ID clinic with any worsening or ongoing pain along with her ortho surgeon. - Discussed with patient the rational for treatment, culture results, risk of recurrent infection, signs/symptoms of recurrent infection, and to contact ID clinic with any questions or concerns Assessment & Plan (10/21/2020 3:45 PM CDT): - Doing well on PO Keflex suppression with no concern for recurrent infection on exam today. Tolerating antibiotics well without adverse effects. - Continue Keflex 500 mg PO BID for chronic suppression due to retained hardware in the right hip at the site of Staph lugdunensis infection. Plan to continue for the foreseeable future due to risk of recurrent infection with retained hardware - CBC and CMP drawn today - Discussed with patient the rational for treatment, culture results, risk of recurrent infection, signs/symptoms of recurrent infection, and to contact ID clinic with any questions or concerns Assessment & Plan (06/25/2020 9:26 AM MACHINE DEICER ELEMENT WINDER): - Patient reports doing well on suppressive Keflex with no concern for recurrent infection - Continue Keflex 500 mg PO BID for chronic antibiotic suppression due to retained hardware in the right hip at the site of Staph lugdunensis infection. Plan to continue for the foreseeable future due to risk of recurrent infection - Discussed with patient the rational for treatment, culture results, risk of recurrent infection, signs/symptoms of recurrent infection, and to contact ID clinic with any questions or concerns farm hand (current) use of antibiotics 0 Unspecified atrial fibrillation 03/08/2020 Unspecified glaucoma 03/08/2020 Urinary incontinence 03/08/2020 Right hip pain 03/02/2020 Overview (03/02/2020): Added automatically from request for surgery [id number] Assessment & Plan (03/02/2020 5:38 PM CDT): Hx R THOR (12/14/2019) complicated by R hip prosthetic joint infection s/p OR I&D + head-liner exchange (03/02/2020). Recent R hip aspiration w/ negative cultures on 02/20/2020 and no growth on recent cultures from 02/29/2020 thusfar. ESR 69, CRP 12.4. - Continue empiric vancomycin 1250mg IV q24 hours - Check vancomycin trough prior to 4th dose (target troughs 15-20) per pharmacy vancomycin protocol - D/C IV cefazolin; start empiric cefepime 2000mg IV q12 hours - Follow-up operative cultures & recent aspirate cultures to tailor antibiotic therapy - Will likely plan for prolonged course of IV antibiotics (6 weeks) to be followed by chronic suppression given retained hardware - Check baseline LFTs - Will continue to follow, but please page w/ questions ([phone]) Other staphylococcus as the cause of diseases classified elsewhere 02/15/2020 Polyuria 12/27/2019 Primary osteoarthritis of right hip 12/08/2019 Overview (12/08/2019): Added automatically from request for surgery [id number] Carpal tunnel syndrome 09/14/2019 Coronary artery disease invo lving quinault coronary artery of quinault heart without angina pectoris 09/14/2019 Family history of diabetes mellitus 09/14/2019 Gout 09/14/2019 Narcolepsy 09/14/2019 Non-organic sleep disorder 09/14/2019 Osteoarthritis 09/14/2019 Polyp of colon 09/14/2019 Vitamin D deficiency 09/14/2019 Hyperuricemia 08/03/2019 BMI 40.0-44.9, adult 02/03/2019 Spinal stenosis of lumbar region 09/13/2018 Obesity with body mass index 30 or greater 03/19 Blood glucose abnormal 02/01/2018 Hyperlipidemia 02/01/2018 Prolapsing mitral leaflet syndrome 02/01/2018 Overweight 12/16/2017 Thyroid nodule 09/28/2017 History of hypertension 03/10/2017 Class 2 obesity in adult 03/10/2017 Obstructive sleep apnea 03/10/2017 Other chest pain 11/24/2016 Essential hypertension 11/24/2016 Dyspnea on exertion 11/24/2016 Encounter for preventive health examination 02/16 Arterial bruit 10/25/2012 Temporary cerebral vascular dysfunction 07/14/19 12 Mitral valve disease 10/01/2010 Overview (08/28/2017): Description: Mitral Valve Disorder Immunizations Name Administration Dates Next Due Influenza, Quadrivalent, Hig h Dose, Preservative Free, Intrr 04/17/2022,04/26/2021 Influenza, Quadrivalent, Rec ombinant, Egg Free, Preservative Free, Intramuscular 03/01/2019 Influenza, Quadrivalent, Spl it, Intramuscular 02/15/2019,02/15/2018 Influenza, Trivalent, High D ose, Split, Preservative Free, Intramuscular 02/03/2019,03/19/2018,03/19/2018,03/25,03/24/2017 Influenza, Trivalent, IM (MDV) 02/25/2016 Influenza, Unspecified 06/26/2023,2018,02/15/2019,02/03,03/19/2018,02/15/2018,03/25/2017 ,03/24/2017,02/25/2016 Moderna SARS-CoV-2 Monovalen t Vaccination (12+ YRS) 07/31/2020 Pfizer SARS-CoV-2 Monovalent Vaccination (12+ Yrs) PURPLE 03/18/2021,07/31/2020,07/31/2020,07/10 Pneumococcal Conjugate PCV 13 02/16/2016, 016 Pneumococcal Conjugate Pcv20 04/17/2022 Pneumococcal Polysaccharide PPV23 05/30/2010 RSV Vaccine, Pref, Recombina nt, Subunit, Adjuvanted, PF, IM (Arexvy) 06/26/2023 Tdap 10/27/2018, 9,06/24/2018,09/28,10/30/2015 ZOSTER LIVE 12/28/2018,05/18/2013 ZOSTER Recombinant 12/28/2018, 9,09/22/2018,06/24 Social History Tobacco Use Types Packs/Day Years Used Date Smoking Tobacco: Never Passive Smoke Exposure: Never Smokeless Tobacco: Never Tobacco Cessation:Counseling Given: Not Answered Alcohol Use Standard Drinks/Week Comments Not Currently 0 (1 standard drink = 0.6 oz pur e alcohol) AUDIT-C Answer Date Recorded Q1: How often do you have a drink containing alc ohol? Never 05/14/2023 Average Number of Drinks Not on file 023 Frequency of Binge Drinking Not on file 04/18 Personal Safety Answer Date Recorded Have you ever been in or are you currently in a harmful physical or emotional relationship or is someone making you feel afraid or unsafe? Denies 05/14/2023 Comments No Sex and Gender Information Value Date Recorded Sex Assigned at Not on file Legal Sex Female 7:55 PM MACHINE DE[employer]LEMENT WINDER Gender Identity Not on file Sexual Orientation Not on file Occupation Industry Job Start Date Job End Date retired Not on file Not on file Not on file Last Filed Vital Signs Vital Sign Reading Time Taken Comments Blood Pressure 120/80 04/12/2024 8:36 AM MACHINE [employer] WINDER Pulse 71 04/12/2024 8:36 AM MACHINE [employer] WINDER Temperature 36.4 ??C (97.6 ??F) 03/23/2024 1:13 PM CS T Respiratory Rate 16 03/23/2024 1:13 PM MACHINE [employer] W[employer]ER Oxygen Saturation 97% 03/23/2024 1:13 PM MACHINE [employer] W[employer]ER Inhaled Oxygen Concentration - - Weight 92.1 kg (203 lb) 04/12/2024 8:36 AM MACHINE [employer] W[employer]ER Height 167.6 cm (5' 6 ) 04/12/2024 8:36 AM MACHINE [employer] WINDER Body Mass Index 32.77 04/12/2024 8:36 AM MACHINE [employer]IC[employer] WINDER Plan of Treatment Not on file Medical Devices Implanted Type Area Floor Worker Well Service Device Identifier Shelf Expiration Date Model / Serial / Lot [employer] 6197-9-001 Simplex P Full Dose Radiopaque Preblend Cement Bone Tobramycin - Sna - [id number] Implanted:Qty: 1 on 12/14/2019 by Berto Varela MD at [facility] Bone Cement Right: Hip [employer] 05/17/2021 6197-9-001 / NA / [id number] [employer] 6191-1-010 Simplex P Radiopaque Full Dose Cement Bone Sterile - Sna - [id number] Implanted:Qty: 1 on 12/14/2019 by Berto Varela MD at [facility] Bone Cement Right: Hip [employer] 05/17/2021 6191-1-010 / NA / [id number] [employer] Marker Biospy Site Top Hat Shape Senomark Bdwpe-Dqvmlx-3 s - [id number] Implanted:Qty: 1 on 07/04/2022 at [facility] Clip Left: Breast [employer] [id number] 12/24/2022 SMARK-CELERO -2S / / [id number] [employer]/ Ortho [id number] Prep-Im Plug [place] Sponge Suction Hip Kit Thr Latex Free - Sna - [id number] Implanted:Qty: 1 on 12/14/2019 by Berto Varela MD at [facility] Other - see comments Right: Hip [employer]/ Ortho 06/27/2029 [id number] / NA / [id number] [employer] [id number] Continuum 52mm 12 Scallop Cluster Hole Snap Fit Groove Integrate - Sna - [id number] Implanted:Qty: 1 on 12/14/2019 by Berto Varela MD at [facility] Other - see comments Right: Hip [employer] [id number] 11/25/2029 [id number] / NA / [id number] [employer] [id number] 52mm 36mm Hip Ii Neutral Liner Acetabular Longevity Continuum - Sna - [id number] Implanted:Qty: 1 on 12/14/2019 by Berto Varela MD at [facility] Other - see comments Right: Hip [employer] [id number] 01/16/2024 [id number] / NA / [id number] [employer] [id number] Versys 9mm Cemented Hip Distal Centralizer Stem Pmma Sterile - Sna - [id number] Implanted:Qty: 1 on 12/14/2019 by Berto Varela MD at [facility] Other - see comments Right: Hip [employer] [id number] 06/17/2027 [id number] / NA / [id number] [employer] [id number] Versys Heritage 13mm 130mm Primary Cement Proximal Centralizer - Sna - [id number] Implanted:Qty: 1 on 12/14/2019 by Berto Varela MD at [facility] Other - see comments Right: Hip [employer] [id number] 03/17/2027 [id number] / NA / [id number] [employer] [id number] 52mm 36mm Hip Ii Neutral Liner Acetabular Longevity Continuum - Sna - [id number] Implanted:Qty: 1 on 03/02/2020 by Berto Varela MD at [facility] Other - see comments Right: Hip [employer] [id number] 01/09/2025 [id number] / NA / [id number] [employer] [id number] 36mm Hip Acetabular +7mm 12/14 Xl Head Femoral Biolox Delta - Sna - [id number] Implanted:Qty: 1 on 03/02/2020 by Berto Varela MD at [facility] Other - see comments Right: Hip [employer] [id number] 03/17/2029 [id number] / NA / [id number] [employer] Attune Fb Tib Base Sz 6 Por [id number] - Sna - [id number] Implanted:Qty: 1 on 05/14/2023 by Dexter Torres MD at [facility] Other - see comments Left: Knee [employer] [id number] 03/17/2033 [id number] / NA / [id number] Description:Implant pause pe rformed [employer] Insert Tibial Knee Fixed Lm Posterior Stabilized Attune 5mm Size 6 Polyethylene [id number] - Sna - [id number] Implanted:Qty: 1 on 05/14/2023 by Dexter Torres MD at [facility] Other - see comments Left: Knee [employer] [id number] 03/17/2031 [id number] / NA / [id number] Description:Implant pause pe rformed [employer] Attune Cruciate Retain Cementless Knee Left 6 Narrow Component [id number] - Sna - [id number] Implanted:Qty: 1 on 05/14/2023 by Dexter Torres MD at [facility] Other - see comments Left: Knee [employer] [id number] 06/17/2032 [id number] / NA / [id number] Description:Implant pause pe rformed [employer] [id number] Trilogy 6.5mm 40mm Self Tap Hip Acetabular Cortical Screw Bone - Sna - [id number] Implanted:Qty: 1 on 12/14/2019 by Berto Varela MD at [facility] Screw Right: Hip [employer] [id number] 04/30/2029 [id number] / NA / [id number] [employer] [id number] Trilogy 6.5mm 25mm Self Tap Screw Bone - Sna - [id number] Implanted:Qty: 1 on 12/14/2019 by Berto Varela MD at [facility] Screw Right: Hip [employer] [id number] 10/06/2029 [id number] / NA / [id number] Procedures Procedure Name Priority Date/Time Associated Diagnosis Comments XR KNEE LEFT 3 VIEWS Schedule Routine, Read Routine (OP Routine) 04/27/2024 8:52 AM MACHINE [employer]MENT WINDER Aftercare following left knee joint replacement surgery EGFR Routine 04/21/2023 12:30 PM MACHINE [employer]MENT WINDER Primary osteoarthritis of left knee TNI WITH LIPID PANEL Routine 10/31/2017 11:25 AM CDT from Last 3 Months or Most Recently Relevant to Health Maintenance Results * XR Knee Left 3 Views (04/27/2024 8:52 AM MACHINE DEICER E[employer]MENT WINDER) Anatomical Region Laterality Modality Lower Extremities, Knee Left Computed Radiography 04/27/2024 9:50 AM MACHINE [employer]ICER [employer]MENT WINDER Impressions 04/27/2024 10:03 AM MACHINE [employer]ICER ELEMENT WINDER Unchanged left knee 2 component arthroplasty in near-anatomic alignment. Dictated by: Sylvia Yu MD The radiology attending physician has personally reviewed this study, and had reviewed and/or edited this written report and agrees with it. Electronically signed by: Ismael Hernandez M.D. Narrative 04/27/2024 10:03 AM MACHINE [employer]ER [employer]MENT WINDER EXAMINATION: XR KNEE LEFT 3 VIEWS HISTORY: ??Left knee pain FINDINGS: Comparison is made to left knee radiographs 06/10/2023. Unchanged left knee 2 component arthroplasty in near-anatomic alignment. ??No periprosthetic fracture or lucency. ??Trace left knee joint effusion. ??Vascular calcifications along the posterior aspect of the knee. ??Severe patellofemoral compartment predominant tricompartmental osteoarthritis of the right knee. Procedure Note Ismael Hernandez MD - 04/27/2024 EXAMINATION: XR KNEE LEFT 3 VIEWS HISTORY: Left knee pain FINDINGS: Comparison is made to left knee radiographs 06/10/2023. Unchanged left knee 2 component arthroplasty in near-anatomic alignment. No periprosthetic fracture or lucency. Trace left knee joint effusion. Vascular calcifications along the posterior aspect of the knee. Severe patellofemoral compartment predominant tricompartmental osteoarthritis of the right knee. IMPRESSION: Unchanged left knee 2 component arthroplasty in near-anatomic alignment. Dictated by: Sylvia Yu MD The radiology attending physician has personally reviewed this study, and had reviewed and/or edited this written report and agrees with it. Electronically signed by: Ismael Hernandez M.D. Dexter Torres MD IMG XR PROCEDURES Final R esult * eGFR (04/21/2023 12:30 PM MACHINE DEICER ELEMENT WINDER) [facility] [address] eGFR 58 mL/min/1. 73 m2 [facility] Comment: Interpretive Data Reference Interval Normal ?>/= 90 mL/min/1.73m2 Mildly decreased* ? 60 - 89 mL/min/1.73m2 Mildly to moderately decreased ?45 - 59 mL/min/1.73m2 Moderately to severely decreased ??30 - 44 mL/min/1.73m2 Severely decreased ?15 - 29 mL/min/1.73m2 Kidney Failure ?< 15 ??mL/min/1.73m2 *Relative to young adult level Estimated glomerular filtration rate is determined by the 2020 CKD-EPI equation recommended by the National Kidney Foundation (A Unifying Approach to GFR Estimation: Recommendations of the NKF-ASK Task Force on Reassessing the Inclusion of Race in Diagnosing Kidney Disease, JASN 2020). The CKD-EPI equation should not be used for patients with unstable renal function and has not been validated in children and those over 70. Current interpretive data was last reviewed 2021. Blood 04/21/2023 12:3 0 PM MACHINE DEICER ELEMENT WINDER 04/21/2023 1:48 PM MACHINE DEICER ELEMENT WINDER us Dexter Torres MD LAB BLOOD ORDERABLES Hannah nye Result [facility] [address] [facility]. Department of Laboratories [place], [place] [id number] * (ABNORMAL) TNI with LIPID PANEL (10/31/2017 11:25 AM CDT) Troponin I < 0.300 0.000 - 0.300 ng/mL 10/31/2017 11:56 AM [facility] HISTORICAL RESULTS Comment: Reference using ANGELITO Chemiluminescence ? Negative: Repeat in 4-6 hours as indicated. Triglycerides 235(H) 0 - 149 mg/dL 10/31/2017 12:05 PM [facility] HISTORICAL RESULTS Comment: National Lipid Association/NCEP Guidelines: ?? Normal ?< 150 mg/dL ?? Borderline high ?? 150-199 mg/dL ?? High ?200-499 mg/dL ?? Very High ? >=500 mg/dL Cholesterol 149 0 - 199 mg/dL 10/31/2017 12:05 PM [facility] [employer] HISTORICAL RESULTS Comment: National Lipid Association/NCEP Guidelines: Desirable ? < 200 mg/dL Borderline high: ??200-239 mg/dL High Risk: ?>=240 mg/dL HDL Cholesterol 42 mg/dL 8 12:05 PM CDT [facility] HISTORICAL RESULTS Comment: Reference Ranges: ? Males: >=40 mg/dL ? Females: >=50 mg/dL LDL Cholesterol, Calc 60 0 - 129 mg/dL 10/31/2017 12:05 PM CDT [facility] HISTORICAL RESULTS Comment: National Lipid Association/NCEP Guidelines: ??Optimal ? < 100 mg/dL ??Near Optimal ?100-129 mg/dL ??Borderline high 130-159 mg/dL ??High ?>=160 mg/dL Cholesterol/HDL Ratio 3.5 10/31/2017 12:05 PM CDT [facility] HISTORICAL RESULTS Comment: Optimal ??< 3.5:1 High ? > 5:1 10/31/2017 11:2 5 AM CDT 10/31/2017 11:31 AM CDT us Roya Quiroga PAID SEARCH MANAGER LAB BLOOD ORDERABLES Final R esult [facility] HISTORICAL RESULTS from Last 3 Months or Most Recently Relevant to Health [place] [address] MEDICARE [facility] MEDICARE [facility] MEDICARE [facility] MEDICARE [facility] MEDICARE MEDICARE [facility] Address: [address] [address] [place] [address] [facility] Advance Directives For more information, please contact: [phone] * Full Code (Latest Code Status on File) Date Activated Date Inactivated Comments 05/14/2023 11:55 AM 05/15/2023 1:36 PM * Full Code Date Activated Date Inactivated Comments 05/03/2020 9:38 AM 05/03/2020 3:30 PM * Full Code Date Activated Date Inactivated Comments 04/20/2020 9:47 AM 04/27/2020 5:15 AM * Full Code Date Activated Date Inactivated Comments 03/02/2020 4:26 PM 03/07/2020 7:21 PM * Full Code Date Activated Date Inactivated Comments 12/14/2019 1:09 PM 12/15/2019 4:56 PM Care Teams Refueler Relationship Specialty Start Date End Date Tristin Smith MD [address] [facility] [address] [place] [address] PCP - General 11/24/16 Yoly Urbina, RN CJR Outpatient Bridge Toll Collector 12/14/19 Aishwarya Connolly, general labor 12/28/19 Aishwarya Connolly, general labor 01/20/20 Aishwraya Connolly, general labor 02/20/20 Aishwarya Connolly, general labor 04/03/20
--- OUTSIDE RECORDS SUMMARY | 2024-06-21 11:42 | XMS_ITS | Clinical Summary ---
Author Organization [facility] Address [address] [place] [address] Care Team Providers Care Molder Floor Name Role Phone Tristin Smith MD Primary Care Provider [phone]- [phone] Yoly Urbina RN Unavailable Unavailable Aishwarya Connolly RN Unavailable Unavailable Aishwarya Connolly RN Unavailable Unavailable Aishwarya Connolly RN Unavailable Unavailable Aishwarya Connolly RN Unavailable Unavailable Allergies Active Allergy Reactions Criticality Noted Date [...] Syncope and collapse 04/01/2022 Dizziness 04/01/2022 On terminal block assembler drug therapy 01/23/2022 Dyslipidemia 01/15/2022 Type 2 diabetes mellitus wit hout complication, without long-term current use of insulin ([facility]) 01/15/2022 Infected hardware in right leg 01/15/2022 Intermittent claudication 01/23/2021 Mammogram abnormal 10/23/2020 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 10/23/2020 Carotid artery stenosis 04/26/2020 Abnormal findings on cardiac catheterization 11/2019 Overview (04/23/2020): Added automatically from request for surgery [id number] Jaw pain 04/05/2020 SOB (shortness of breath) on exertion 04/03/2020 Overview (04/03/2020): Added automatically from request for surgery [id number] Recurrent syncope 04/03/2020 Overview (04/03/2020): Added automatically from request for surgery [id number] Anemia, unspecified 03/08/2020 Hypertensive chronic kidney disease with stage 1 through stage 4 chronic kidney disease, or unspecified chronic kidney disease 03/08/2020 Frequency of micturition 03/08/2020 History of falling 03/08/2020 Infection of right prosthetic hip joint 03/08/20 Assessment & Plan (07/30/2023 3:25 PM CDT): [...] concerns Assessment & Plan (05/02/2022 11:42 AM INCINERATOR ATTENDANT): - Doing well on PO Keflex with [...] concerns Assessment & Plan (04/29/2021 9:35 AM INCINERATOR ATTENDANT): - Doing well on PO Keflex with [...] concerns Assessment & Plan (06/25/2020 9:26 AM INCINERATOR ATTENDANT): - Patient reports doing well on suppressive [...] ID clinic with any questions or concerns jail (current) use of antibiotics 0 Unspecified atrial fibrillation 03/08/2020 Unspecified glaucoma 03/08/2020 Urinary incontinence 03/08/2020 Right hip pain 03/02/2020 Overview (03/02/2020): Added automatically from request for surgery [id number] Assessment & Plan (03/02/2020 5:38 PM CDT): [...] to follow, but please page w/ questions ([phone]) Other staphylococcus as the cause of diseases classified elsewhere 02/15/2020 Polyuria 12/27/2019 Primary osteoarthritis of right hip 12/08/2019 Overview (12/08/2019): Added automatically from request for surgery [id number] Carpal tunnel syndrome 09/14/2019 Coronary artery disease invo lving burns paiute coronary artery of burns paiute heart without angina pectoris 09/14/2019 Family history [...] 10/01/2010 Overview (08/28/2017): Description: Mitral Valve Disorder Encounters Date Type Department Care Team Description 04/27/2024 9:10 AM INCINERATOR ATTENDANT Office Visit [facility] [address] [place] [phone] Dexter Torres MD Aftercare following left knee joint replacement surgery (Primary Dx) 04/27/2024 8:40 AM INCINERATOR ATTENDANT - 04/27/2024 11:59 PM INCINERATOR ATTENDANT Hospital Encounter [facility] [address] [place] [address] Aftercare following left knee joint replacement surgery Discharge Disposition: Discharge to home or self care 04/18/2024 Telephone [facility] [address] [place] [address] [address] [place] [address] Katarina Carty, [facility] 04/12/2024 9:00 AM INCINERATOR ATTENDANT Office Visit [facility] [place] [address] Vasu Tello Si, MD Trigeminal neuralgia (Primary Dx); Migraine without status migrainosus, not intractable, unspecified migraine type 03/24/2024 Telephone [facility] [address] [place] [address] Vasu Tello Si, MD Pain Management referral 03/23/2024 12:48 PM INCINERATOR ATTENDANT - 03/23/2024 2:26 PM INCINERATOR ATTENDANT Emergency [facility] Emergency Department [address] [place] [address] Discharge Disposition: Left without being seen from Last 3 Months Immunizations Name Administration Dates Next Due Influenza, [...] ZOSTER LIVE 12/28/2018,05/18/2013 ZOSTER Recombinant 12/28/2018, 9,09/22/2018,06/24 Surgical History Surgery Date Site/Laterality Comments APPENDECTOMY 05/18/1955 - 05/17/1956 HYSTERECTOMY 05/18/1996 - 05/17/1997 SECTION 05/18/1971 - 05/17/1972 CARPAL TUNNEL RELEASE TOE SURGERY COLONOSCOPY TRIGGER FINGER RELEASE [id number], 2020 thumb EYE SURGERY cataract extraction and f/u laser surgery FLUORO GUIDED ASPIRATION OR INJECTION LARGE JOINT RIGHT 02/20/2020 Right FLUORO GUIDED ASPIRATION OR INJECTION LARGE JOINT RIGHT 02/29/2020 Right IR PICC LINE PLACEMENT > 5 YEARS 03/06/2020 N/A HIP SURGERY 02/16/2020 - 03/17/2020 Right revision JOINT REPLACEMENT 05/18/2019 - 05/17/2020 Right THOR CARDIAC CATHETERIZATION BREAST BIOPSY 06/08/2013 Right BREAST BIOPSY 07/17/2016 Left BREAST BIOPSY 07/17/2016 Left BREAST BIOPSY 07/04/2022 Left Benign-Bergom KNEE ARTHROSCOPY Left meniscus repair OTHER SURGICAL HISTORY 05/18/2019 - 05/17/2020 infection cleanout REPLACEMENT TOTAL KNEE 05/14/2023 Medical History Medical History Date Comments Chest pain TIA (transient ischemic attack) Glaucoma Hypertension Sleep apnea cpap Motion sickness in past Multiple thyroid nodules Carotid artery disease (HCC) Osteoarthritis CAD (coronary artery disease) Hyperlipidemia Heart murmur PONV (postoperative nausea and vomiting) in past when was given demerol, no longer an issue Family History Medical History Relation Name Comments Cancer Father Heart disease Maternal Grandfather Diabetes Maternal Grandmother Heart disease Maternal Grandmother Cancer Mother Heart attack Mother Family history of myocardial infarction - 4 sisters had ope heart surgery and heartattacks and mother had heart attack-09/12/13-EW (Added by TW Conv) Heart disease Mother Breast cancer Sister 1 Cancer Sister 1 Heart attack Sister 1 Family history of myocardial infarction - 4 sisters had ope heart surgery and heartattacks and mother had heart attack-09/12/13-EW (Added by TW Conv) Heart disease Sister 1 Stroke Sister 1 Breast cancer Sister 2 Coronary artery disease Sister 2 CABG - 4 sisters (Added by TW Conv) Heart attack Sister 2 Anesthesia problems Neg Hx Relation Name Status Comments Father Maternal Grandfather Maternal Grandmother Mother Sister 1 Sister 2 Social History Tobacco Use Types Packs/Day Years [...] on file Legal Sex Female 7:55 PM INCINERATOR ATTENDANT Gender Identity Not on file Sexual Orientation Not on file Occupation Industry Job Start Date Job End Date retired Not on file Not on file Not on file Obstetrics History Para Term AB IAB SAB Ectopic Multiple Livin g Live Births 3 3 3 Date Outcome GA Total Labor Labor/2nd/3rd Weight Sex Type Anes PTL Monica A1 A5 Name Clin Term Term Term Last Filed Vital Signs Vital Sign Reading Time Taken Comments Blood Pressure 120/80 04/12/2024 8:36 AM INCINERATOR ATTENDANT Pulse 71 04/12/2024 8:36 AM INCINERATOR ATTENDANT Temperature 36.4 ??C (97.6 ??F) 03/23/2024 1:13 PM CS T Respiratory Rate 16 03/23/2024 1:13 PM INCINERATOR ATTENDANT Oxygen Saturation 97% 03/23/2024 1:13 PM INCINERATOR ATTENDANT Inhaled Oxygen Concentration - - Weight 92.1 kg (203 lb) 04/12/2024 8:36 AM INCINERATOR ATTENDANT Height 167.6 cm (5' 6 ) 04/12/2024 8:36 AM INCINERATOR ATTENDANT Body Mass Index 32.77 04/12/2024 8:36 AM INCINERATOR ATTENDANT Plan of Treatment Health Maintenance Due Date Last Done Comments Albumin Creatinine Ratio, Urine 1940 Depression Screening 1940 Hemoglobin A1C 1939 Dilated Eye Exam 1939 Foot Exam 1939 Hepatitis B Screening 1957 Well Visit 65+ 2004 Lipid Panel 10/31/2018 10/31/2017 Osteoporosis Screening-Bone Density Scan 12/03/2020 12/03/2018, 09/22/2018, 05/06/2016, Additional history exists Covid-19 Vaccine (2023-2 5 season) 2024 03/18/2021, 07/31/2020, 07/31/2020, Additional history exists Influenza Vaccine (#1) 2024 , 04/17/2022, 04/26/2021, Additional history exists eGFR 04/21/2024 04/21/2023, 04/17, 04/25/2020, Additional history exists Fall Risk Assessment 05/15/2024 05/15/2023 DTaP/Tdap/Td Vaccine (6 - Td or Tdap) 10/27/2028 10/27/2018, 09/22/2018, 06/24/2018, Additional history exists Zoster Vaccine Completed 12/28/2018, 12/16, 10/27/2018, Additional history exists Pneumococcal vaccine 65+ Completed 022, 02/16/2016, 10/30/2015, Additional history exists Medical Devices Implanted Type Area Substance Abuse Nurse Device Identifier Shelf Expiration Date Model / Serial / Lot [employer] 6197-9-001 Simplex P Full Dose Radiopaque Preblend Cement Bone Tobramycin - Sna - [id number] Implanted:Qty: 1 on 12/14/2019 by Berto Varela MD at [facility] Bone Cement Right: Hip [employer] 05/17/2021 6197-9-001 / NA / [id number] [employer] 6191-1-010 Simplex P Radiopaque Full Dose Cement Bone Sterile - Sna - [id number] Implanted:Qty: 1 on 12/14/2019 by Berto Varela MD at [facility] Bone Cement Right: Hip [employer] 05/17/2021 6191-1-010 / NA / [id number] [employer] Marker Biospy Site Top Hat Shape [employer]ark Pvlvc-Dkpqpd-5 s - [id number] Implanted:Qty: 1 on 07/04/2022 at [facility] Left: Breast [employer] [id number] 12/24/2022 SMARK-CELERO -2S / / [id number] [employer]/ Ortho [id number] Prep-Im Plug [place] Sponge Suction Hip Kit Thr Latex Free - Sna - [id number] Implanted:Qty: 1 on 12/14/2019 by Berto Varela MD at [facility] Other - see comments Right: Hip [employer]o 06/27/2029 [id number] / NA / [id number] [employer] [id number] Continuum 52mm 12 Scallop Cluster Hole Snap Fit Groove Integrate - Sna - [id number] Implanted:Qty: 1 on 12/14/2019 by Berto Varela MD at [facility] Other - see comments Right: Hip [employer] [id number] 11/25/2029 [id number] / NA / [id number] [employer] [id number] 52mm 36mm Hip Ii Neutral Liner Acetabular Longevity Continuum - Sna - [id number] Implanted:Qty: 1 on 12/14/2019 by Berto Varela MD at [facility] Other - see comments Right: Hip [employer] [id number] 01/16/2024 [id number] / NA / [id number] [employer] [id number] Versys 9mm Cemented Hip Distal Centralizer Stem Pmma Sterile - Sna - [id number] Implanted:Qty: 1 on 12/14/2019 by Berto Varela MD at [facility] Other - see comments Right: Hip [employer] [id number] 06/17/2027 [id number] / NA / [id number] [employer] [id number] Versys Heritage 13mm 130mm Primary Cement Proximal Centralizer - Sna - [id number] Implanted:Qty: 1 on 12/14/2019 by Berto Varela MD at [facility] Other - see comments Right: Hip [employer] [id number] 03/17/2027 [id number] / NA / [id number] [employer] [id number] 52mm 36mm Hip Ii Neutral Liner Acetabular Longevity Continuum - Sna - [id number] Implanted:Qty: 1 on 03/02/2020 by Berto Varela MD at [facility] Other - see comments Right: Hip [employer] [id number] 01/09/2025 [id number] / NA / [id number] [employer] [id number] 36mm Hip Acetabular +7mm 12/14 Xl Head Femoral Biolox Delta - Sna - [id number] Implanted:Qty: 1 on 03/02/2020 by Berto Varela MD at [facility] Other - see comments Right: Hip [employer] [id number] 03/17/2029 [id number] / NA / [id number] [employer] Attune Fb Tib Base Sz 6 Por [id number] - Sna - [id number] Implanted:Qty: 1 on 05/14/2023 by Dexter Torres MD at [facility] Other - see comments Left: Knee [employer] [id number] 03/17/2033 [id number] / NA / [id number] Description:Implant pause pe rformed [employer] Insert Tibial Knee Fixed Lm Posterior Stabilized Attune 5mm Size 6 Polyethylene [id number] - Sna - [id number] Implanted:Qty: 1 on 05/14/2023 by Dexter Torres MD at [facility] Other - see comments Left: Knee [employer] [id number] 03/17/2031 [id number] / NA / [id number] Description:Implant pause pe rformed [employer] Attune Cruciate Retain Cementless Knee Left 6 Narrow Component [id number] - Sna - [id number] Implanted:Qty: 1 on 05/14/2023 by Dexter Torres MD at [facility] Other - see comments Left: Knee [employer] [id number] 06/17/2032 [id number] / NA / [id number] Description:Implant pause pe rformed [employer] [id number] Trilogy 6.5mm 40mm Self Tap Hip Acetabular Cortical Screw Bone - Sna - [id number] Implanted:Qty: 1 on 12/14/2019 by Berto Varela MD at [facility] Screw Right: Hip [employer] [id number] 04/30/2029 [id number] / NA / [id number] [employer] [id number] Trilogy 6.5mm 25mm Self Tap Screw Bone - Sna - [id number] Implanted:Qty: 1 on 12/14/2019 by Berto Varela MD at [facility] Screw Right: Hip [employer] [id number] 10/06/2029 [id number] / NA / [id number] Procedures Procedure Name Priority Date/Time Associated Diagnosis Comments XR KNEE LEFT 3 VIEWS Schedule Routine, Read Routine (OP Routine) 04/27/2024 8:52 AM INCINERATOR ATTENDANT Aftercare following left knee joint replacement surgery EGFR Routine 04/21/2023 12:30 PM INCINERATOR ATTENDANT Primary osteoarthritis of left knee TNI WITH LIPID PANEL Routine 10/31/2017 11:25 AM CDT from Last 3 Months or Most Recently Relevant to Health Maintenance Results * XR Knee Left 3 Views (04/27/2024 8:52 AM INCINERATOR ATTENDANT) Anatomical Region Laterality Modality Lower Extremities, Knee Left Computed Radiography 04/27/2024 9:50 AM INCINERATOR ATTENDANT Impressions 04/27/2024 10:03 AM INCINERATOR ATTENDANT Unchanged left knee 2 component arthroplasty in near-anatomic alignment. Dictated by: Sylvia Yu MD The radiology attending physician has personally reviewed this study, and had reviewed and/or edited this written report and agrees with it. Electronically signed by: Ismael Hernandez M.D. Narrative 04/27/2024 10:03 AM INCINERATOR ATTENDANT EXAMINATION: XR KNEE LEFT 3 VIEWS HISTORY: [...] R esult * eGFR (04/21/2023 12:30 PM INCINERATOR ATTENDANT) [facility] eGFR 58 mL/min/1. 73 m2 [facility]SE WELLS Comment: Interpretive Data Reference Interval Normal ?>/= [...] reviewed 2021. Blood 04/21/2023 12:3 0 PM INCINERATOR ATTENDANT 04/21/2023 1:48 PM INCINERATOR ATTENDANT us Dexter Torres MD LAB BLOOD ORDERABLES Hannah nye Result [facility] [id number] [facility]. Department [place] [address] * (ABNORMAL) TNI with LIPID PANEL (10/31/2017 11:25 AM CDT) Troponin I < 0.300 0.000 - 0.300 ng/mL 10/31/2017 11:56 AM T [facility] HISTORICAL RESULTS Comment: Reference using ANGELITO Chemiluminescence ? Negative: Repeat in 4-6 hours as indicated. Triglycerides 235(H) 0 - 149 mg/dL Comment: National Lipid Association/NCEP Guidelines: ?? Normal ?< 150 mg/dL ?? Borderline high ?? 150-199 mg/dL ?? High ?200-499 mg/dL ?? Very High ? >=500 mg/dL Cholesterol 149 0 - 199 mg/dL Comment: National Lipid Association/NCEP Guidelines: Desirable ? < 200 mg/dL Borderline high: ??200-239 mg/dL High Risk: ?>=240 mg/dL HDL Cholesterol 42 mg/dL 8 12:05 PM [facility] HISTORICAL RESULTS Comment: Reference Ranges: ? Males: >=40 mg/dL ? Females: >=50 mg/dL LDL Cholesterol, Calc 60 0 - 129 mg/dL Comment: National Lipid Association/NCEP Guidelines: ??Optimal ? < 100 mg/dL ??Near Optimal ?100-129 mg/dL ??Borderline high 130-159 mg/dL ??High ?>=160 mg/dL Cholesterol/HDL Ratio 3.5 10/31/2017 12:05 PM CDT [facility] HISTORICAL RESULTS Comment: Optimal ??< 3.5:1 High ? > 5:1 10/31/2017 11:2 5 AM CDT 10/31/2017 11:31 AM CDT Roya Quiroga PULP COOKER LAB BLOOD ORDERABLES Final R esult [facility] HISTORICAL RESULTS from Last 3 Months or Most Recently Relevant to Health Maintenance Insurance MEDICARE [facility] MEDICARE [facility] MEDICARE [facility] MEDICARE [facility] [place] [address] MEDICARE [facility] Advance Directives For more information, please contact: [phone] * Full Code (Latest Code Status on [...] 1:09 PM 12/15/2019 4:56 PM Care Teams Molder Floor Relationship Specialty Start Date End Date Tristin Smith MD [address] [facility] [address] [place] [address] PCP - General 11/24/16 Yoly Urbina RN CJR Outpatient Bicycle Service Technician 12/14/19 Aiswharya Connolly, convenience store manager 12/28/19 Aishwarya Connolly, convenience store manager 01/20/20 Aishwarya Connolly, convenience store manager 02/20/20 Aishwarya Connolly, convenience store manager 04/03/20
--- OUTSIDE RECORDS SUMMARY | 2024-06-21 11:42 | XMS_ITS | Encounter Summary ---
Author Organization [facility] Address [address] [place] [address] Phone Care Team Providers Care Aircraft Armament Mechanic Name Role Phone Tristin Smith MD Primary Care Provider +1- [phone] Yoly Urbina RN Unavailable Unavailable Aishwarya Connolly RN Unavailable Unavailable Aishwarya Connolly RN Unavailable Unavailable Aishwarya Connolly RN Unavailable Unavailable Aishwarya Connolly RN Unavailable Unavailable Encounter Details Date Type Department Care Team (Latest Contact Info) Description 01/21/2022 Orders Only [facility] Scanning, Provider Social History Tobacco Use Types Packs/Day Years Used Date Smoking Tobacco: Never Smokeless Tobacco: Never Alcohol Use Standard Drinks/Week Comments Not Currently 0 (1 standard drink = 0.6 oz pur e alcohol) Comments No Sex and Gender Information Value Date Recorded Sex Assigned at Not on file Legal Sex Female 7:55 PM 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 ENGINEER Gender Identity Not on file Sexual Orientation Not on file Occupation Industry Job Start Date Job End Date retired Not on file Not on file Not on file documented as of this encounter Plan of Treatment Not on file documented as of this encounter Procedures Procedure Name Priority Date/Time Associated Diagnosis Comments CARDIOLOGY DOCUMENT SCAN 01/21/2022 SCAN - RADIOLOGY/IMAGING 01/20/2022 documented in this encounter Results * CARDIOLOGY DOCUMENT SCAN (01/21/2022) Anatomical Region Laterality Modality Other us Provider Scanning CV CARDIAC SERVICES PROCEDURES Final Result * SCAN - RADIOLOGY/IMAGING (01/20/2022) Anatomical Region Laterality Modality Other us Provider Scanning Edited Result - Final documented in this encounter Visit Diagnoses Not on filedocumented in this encounter Care Teams Aircraft Armament Mechanic Relationship Specialty Start Date End Date Tristin Smith MD [address] [place] [address] PCP - General 11/24/16 Yoly Urbina, RN CJR Outpatient Car Dumper Operator 12/14/19 Aishwarya Connolly, printing engineer 12/28/19 Aishwarya Connolly, printing engineer 01/20/20 Aishwarya Connolly, printing engineer 02/20/20 Aishwarya Connolly, printing engineer 04/03/20 documented as of this encounter
--- OUTSIDE RECORDS SUMMARY | 2024-06-21 11:43 | XMS_ITS | Encounter Summary ---
Author Organization [facility] Healthcare Address [address] [place] [address] Care Team Providers Care Body Shop Estimator Name Role Phone Tristin Smith MD Primary Care Provider +1- [phone] Yoly Urbina RN Unavailable Unavailable Aishwarya Connolly RN Unavailable Unavailable Aishwarya Connolly RN Unavailable Unavailable Aishwarya Connolly RN Unavailable Unavailable Aishwarya Connolly RN Unavailable Unavailable Reason for Referral * Consultation (Routine) - Denied Specialty Diagnoses / Procedures Referred By Cresencio t Referred To Contact Neurology Diagnoses Trigeminal neuralgia Marisabel Underwood MD [address] [place] [address] Phone: tel: fax: [facility] General Neurology [address] [place] [address] 6th [address] [place] [address] Phone: tel: fax: Referral ID Status Reason Start Date Expiration Date V isits Requested Visits Authorized [id number] Denied Specialty Services Required 02/29/2024 03/30/2025 1 0 Question Answer Please select the performing region: [facility] (All Locations) [[id number]] # of visits: 1 Comments G50 Trigeminal Neuralgia at the right-hand side of jaw, mainly V3 dermatome Please eval for V3 Nerve Block Marisabel Underwood MD 02/24/2024, Pain Management PATIENT REPORTS: ??Patient ambulatory to room for pain in her jaw. Pain has been present for about 3-4 years. No known injury. Pain is sharp and stabbing. No numbness or tingling. No prior surgeries. Patient is interested in a nerve block for her jaw.?? The patient did not respond to Tegretol.?? The patient did temporarily respond to acupuncture.?? The pain is on the right-hand side of the jaw mainly in the V3 dermatome.?? Mainly at the bottom of the jaw and at the angle of the jaw.?? This is bothered by blowing her nose as well as brushing her teeth.?? Pain is intermittent and stabbing in nature.. 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 OPERATOR Gender Identity Not on file Sexual Orientation Not on file Occupation Industry Job Start Date Job End Date retired Not on file Not on file Not on file documented as of this encounter Plan of Treatment Scheduled Referrals Name Type Priority Associated Diagnoses Order Schedule Ambulatory referral to Neurology Outpatient Referral Routine Trigeminal neuralgia Expected: 03/14/2024 (Approximate), Expires: 02/28/2025 documented as of this encounter Visit Diagnoses Diagnosis Trigeminal neuralgia- Primary documented in this encounter Care Teams Body Shop Estimator Relationship Specialty Start Date End Date Tristin Smith MD [address] [place] [address] PCP - General 11/24/16 Yoly Urbina RN [facility] Outpatient Adjunct Professor Of Voice 12/14/19 Aishwarya Connolly, flow worker 12/28/19 Aishwarya Connolly flow worker 01/20/20 Aishwarya Connolly flow worker 02/20/20 Aishwarya Connolly, flow worker 04/03/20 documented as of this encounter
--- OUTSIDE RECORDS SUMMARY | 2024-06-21 11:44 | XMS_ITS | Encounter Summary ---
Author Organization [facility] Address [address] [place] [address] Phone Care Team Providers Care Fruit Express Agent Name Role Phone Tristin Smith MD Primary Care Provider +1- [phone] Yoly Urbina RN Unavailable Unavailable Aishwarya Connolly RN Unavailable Unavailable Aishwarya Connolly RN Unavailable Unavailable Aishwarya Connolly RN Unavailable Unavailable Aishwarya Connolly RN Unavailable Unavailable Encounter Details Date Type Department Care Team (Latest Contact Info) Description 06/05/2021 Orders Only [facility] Scanning, Provider Social History Tobacco Use Types Packs/Day Years Used Date Smoking Tobacco: Never Smokeless Tobacco: Never Alcohol Use Standard Drinks/Week Comments Not Currently 0 (1 standard drink = 0.6 oz pur e alcohol) Comments No Sex and Gender Information Value Date Recorded Sex Assigned at Not on file Legal Sex Female 7:55 PM DEMENTIA PROGRAM DIRECTOR Gender Identity Not on file Sexual Orientation Not on file Occupation Industry Job Start Date Job End Date retired Not on file Not on file Not on file documented as of this encounter Plan of Treatment Not on file documented as of this encounter Procedures Procedure Name Priority Date/Time Associated Diagnosis Comments SCAN - LABS 06/05/2021 documented in this encounter Results * SCAN - LABS (06/05/2021) us Provider Scanning Final Result documented in this encounter Visit Diagnoses Not on filedocumented in this encounter Care Teams Fruit Express Agent Relationship Specialty Start Date End Date Tristin Smith MD [address] [place] [address] PCP - General 11/24/16 Yoly Urbina, RN [facility] Outpatient Supervisor Crack Off 12/14/19 Aishwarya Connolly, whiskey proof reader 12/28/19 Aishwarya Connolly, whiskey proof reader 01/20/20 Aishwarya Connolly, whiskey proof reader 02/20/20 Aishwarya Connolly, whiskey proof reader 04/03/20 documented as of this encounter
--- OUTSIDE RECORDS SUMMARY | 2024-06-21 11:44 | XMS_ITS | Encounter Summary ---
Author Organization [facility] Address [address] [place] [address] Phone Care Team Providers Care Payroll Lead Name Role Phone Tristin Smith MD Primary Care Provider +1- [phone] Yoly Urbina RN Unavailable Unavailable Aishwarya Connolly RN Unavailable Unavailable Aishwarya Connolly RN Unavailable Unavailable Aiswharya Connolly RN Unavailable Unavailable Aishwarya Connolly RN Unavailable Unavailable Encounter Details Date Type Department Care Team (Latest Contact Info) Description 06/06/2021 Orders Only [facility] Scanning, Provider Social History Tobacco Use Types Packs/Day Years Used Date Smoking Tobacco: Never Smokeless Tobacco: Never Alcohol Use Standard Drinks/Week Comments Not Currently 0 (1 standard drink = 0.6 oz pur e alcohol) Comments No Sex and Gender Information Value Date Recorded Sex Assigned at Not on file Legal Sex Female 7:55 PM RESOURCE CONSERVATIONIST Gender Identity Not on file Sexual Orientation Not on file Occupation Industry Job Start Date Job End Date retired Not on file Not on file Not on file documented as of this encounter Plan of Treatment Not on file documented as of this encounter Procedures Procedure Name Priority Date/Time Associated Diagnosis Comments SCAN - LABS 06/06/2021 documented in this encounter Results * SCAN - LABS (06/06/2021) us Provider Scanning Final Result documented in this encounter Visit Diagnoses Not on filedocumented in this encounter Care Teams Payroll Lead Relationship Specialty Start Date End Date Tristin Smith MD [address] [place] [address] PCP - General 11/24/16 Yoly Urbina, RN [facility] Outpatient Bakery Machine Mechanic Supervisor 12/14/19 Aishwarya Connolly, repairer cylinder heads 12/28/19 Aishwarya Connolly, repairer cylinder heads 01/20/20 Aishwarya Connolly, repairer cylinder heads 02/20/20 Aishwarya Connolly, repairer cylinder heads 04/03/20 documented as of this encounter
--- OUTSIDE RECORDS SUMMARY | 2024-06-21 11:44 | XMS_ITS | Encounter Summary ---
Author Organization [facility] Address [address] [place] [address] Phone Care Team Providers Care Dye Jig Operator Name Role Phone Tristin Smith MD Primary Care Provider +1- [phone] Yoly Urbina RN Unavailable Unavailable Aishwarya Connolly RN Unavailable Unavailable Aishwarya Connolly RN Unavailable Unavailable Aishwarya Connolly RN Unavailable Unavailable Aishwarya Connolly RN Unavailable Unavailable Encounter Details Date Type Department Care Team (Late st Contact Info) Description 08/12/2018 Orders Only [facility] Neurosurgery [address] [facility] [address] [place] [id number] Yovana Moss, GIORGI [address] [place] [address] Sacroiliitis, not elsewhere classified (CMS/HCC) (Primary Dx) Social History Tobacco Use Types Packs/Day Years Used Date Smoking Tobacco: Never Smokeless Tobacco: Never Alcohol Use Standard Drinks/Week Comments Not Currently 0 (1 standard drink = 0.6 oz pur e alcohol) Comments Unknown Sex and Gender Information Value Date Recorded Sex Assigned at Not on file Legal Sex Female 7:55 PM BIOCHEMICAL ENGINEER Gender Identity Not on file Sexual Orientation Not on file Occupation Industry Job Start Date Job End Date retired Not on file Not on file Not on file documented as of this encounter Plan of Treatment Not on file documented as of this encounter Visit Diagnoses Diagnosis Sacroiliitis, not elsewhere classified (HCC)- Primary Sacroiliitis, not elsewhere classified documented in this encounter Care Teams Dye Jig Operator Relationship Specialty Start Date End Date Tristin Smith MD [address] [address] PCP - General 11/24/16 Yoly Urbina, RN [facility] Outpatient Labor Supervisor 12/14/19 Aishwarya Connolly, television antenna installer 12/28/19 Aishwarya Connolly, television antenna installer 01/20/20 Aishwarya Connolly, television antenna installer 02/20/20 Aishwarya Connolly, television antenna installer 04/03/20 documented as of this encounter
--- OUTSIDE RECORDS SUMMARY | 2024-06-21 11:44 | XMS_ITS | Encounter Summary ---
Author Organization [facility] Address [address] [place] [address] Phone Care Team Providers Care Lace Machine Operator Name Role Phone Tristin Smith MD Primary Care Provider +1- [phone] Yoly Urbina RN Unavailable Unavailable Aishwarya Connolly RN Unavailable Unavailable Aishwarya Connolly RN Unavailable Unavailable Aishwarya Connolly RN Unavailable Unavailable Aishwarya Connolly RN Unavailable Unavailable Encounter Details Date Type Department Care Team (Latest Contact Info) Description 06/13/2019 Orders Only [facility] Scanning, Provider Social History Tobacco Use Types Packs/Day Years Used Date Smoking Tobacco: Never Smokeless Tobacco: Never Alcohol Use Standard Drinks/Week Comments Not Currently 0 (1 standard drink = 0.6 oz pur e alcohol) Comments Unknown Sex and Gender Information Value Date Recorded Sex Assigned at Not on file Legal Sex Female 7:55 PM 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 ENGINEERING TECHNOLOGIST Gender Identity Not on file Sexual Orientation Not on file Occupation Industry Job Start Date Job End Date retired Not on file Not on file Not on file documented as of this encounter Plan of Treatment Not on file documented as of this encounter Procedures Procedure Name Priority Date/Time Associated Diagnosis Comments SCAN - LABS 06/13/2019 documented in this encounter Results * SCAN - LABS (06/13/2019) us Provider Scanning Final Result documented in this encounter Visit Diagnoses Not on filedocumented in this encounter Care Teams Lace Machine Operator Relationship Specialty Start Date End Date Tristin Smith MD [address] [place] [address] PCP - General 11/24/16 Yoly Urbina RN [facility] Outpatient Residential Field Manager 12/14/19 Aishwarya Connolly, retread operator 12/28/19 Aishwarya Connolly, retread operator 01/20/20 Aishwarya Connolly retread operator 02/20/20 Aishwarya Connolly retread operator 04/03/20 documented as of this encounter
--- OUTSIDE RECORDS SUMMARY | 2024-06-21 11:44 | XMS_ITS | Clinical Summary ---
Author Organization [facility] Address [facility] [facility] [place] [address] [place] [address] Care Team Providers Care Industrial Manufacturing Technician Name Role Phone Tristin Smith MD Primary Care Provider [phone] Allergies Active Allergy Reactions Criticality Noted Date Comments Iodine Hives 03/08/2019 Meperidine GI Upset 03/08/2019 Gabapentin Other (see comment) Low 09/14/2019 Loss of memory Lisinopril Cough Low 06/26/2020 Niacin Unknown 06/26/2020 Butorphanol GI Upset 03/08/2019 Tramadol Nausea Only Low 06/08/2019 Medications CPAP DME DEVICE CPAP7 cm [id number] 2017Mohan, VentrapragadaActive 017 Active allopurinol 100 MG tablet 018 Active aspirin EC 81 MG tablet Take 325 mg by mouth. Active atorvastatin 20 MG tablet Take 20 mg by mouth nightly at bedtime. 0 019 Active brimonidine 0.2 % ophthalmic solution 018 Active candesartan 32 MG tablet Take 32 mg by mouth every morning. 0 019 Active dorzolamide-garry olol 22.3-6.8 MG/ML Solution Activ e hydrochlorothia zide 12.5 MG tablet TAKE 1 2 (ONE HALF) TABLET BY MOUTH ONCE DAILY 0 019 Active FLUBLOK QUADRIVALENT 0.5 ML Solution Prefilled Syringe 019 Active latanoprost 0.005 % ophthalmic solution INSTILL 1 DROP INTO EACH EYE AT BEDTIME 3 019 Active losartan 100 MG tablet Active MAGOX 400 400 (241.3 Mg) MG tablet Take 400 mg by mouth daily. 0 Active metoprolol succinate ER 25 MG 24 hr tablet Active pregabalin 25 MG capsule TAKE 1 CAPSULE BY MOUTH TWICE DAILY FOR 30 DAYS 0 Active BOOSTRIX 5-2.5-18.5 LF-MCG/0.5 injection PHARMACIST ADMINISTERED IMMUNIZATION ADMINISTERED AT TIME OF DISPENSING 0 Active timolol 0.5 % ophthalmic solution Active SHINGRIX injection Active COLACE 2-IN-1 8.6-50 MG tablet TAKE 2 TABLETS BY MOUTH TWICE DAILY MAY INCREASE TO 4 TABS TWICE DAILY IF NEEDED. HOLD MED FOR DIARRHEA Active oxybutynin XL 5 MG 24 hr tablet Take 5 mg by mouth every morning. FOR 14 DAYS Active ELIQUIS 2.5 MG tablet Active celecoxib 100 MG capsule TAKE 2 CAPSULES BY MOUTH WITH BREAKFAST THE DAY BEFORE SURGERY. TAKE 1 CAPSULE TWICE DAILY AFTER DISCHARGE Active HYDROcodone-gino taminophen 5-325 MG tablet TAKE 1 2 TABS BY MOUTH EVERY 4 HOURS NEEDED FOR PAIN Active ezetimibe 10 MG tablet Take 10 mg by mouth daily. Active rosuvastatin 10 MG tablet Take 10 mg by mouth daily. Active cyclobenzaprine 5 MG tablet Take 5 mg by mouth nightly at bedtime. Active mupirocin 2 % ointment APPLY TOPICALLY TWICE DAILY TO NOSTRILS FOR 5 DAYS PRIOR TO SURGERY Active candesartan 8 MG tablet Take 8 mg by mouth every morning. FOR 14 DAYS Active famotidine 20 MG tablet TAKE 1 TABLET BY MOUTH THE NIGHT BEFORE AND 1 TABLET THE MORNING OF CARDIAC CATH Active carBAMazepine ER 100 MG 12 hr capsule Take 100 mg by mouth 2 (two) times daily. Patient states she takes it maybe once a year Active diphenhydrAMINE (BENADRYL) 25 MG capsule Take 2 tablets the night before and 2 tablets the morning of cardiac cath Active acetaminophen (TYLENOL) 500 MG tablet every 8 (eight) hours. Active nitroglycerin 0.4 MG SL tablet nitroglycerin 0.4 mg sublingual tablet Active losartan 50 MG tablet losartan 50 mg tablet Active vitamin B-12 (CYANOCOBALAMIN ) 1000 mcg tablet Take 1,000 mcg by mouth daily. Active heparin lock flush 10 UNIT/ML injection 50 Units 2 (two) times daily. Active diazePAM 5 MG tablet Active baclofen 10 MG tablet Take 10 mg by mouth 2 (two) times daily. Active metoprolol tartrate 25 MG tablet Take 25 mg by mouth 2 (two) times daily. Active magnesium oxide 400 MG tablet magnesium oxide 400 mg (241.3 mg magnesium) tablet Take 1 tablet by mouth once daily Active Magnesium 30 MG Tab Take 30 mg by mouth 2 (two) times daily. Active cephALEXin (KEFLEX) 500 MG capsule cephalexin 500 mg capsule TAKE 1 CAPSULE BY MOUTH TWICE DAILY Active Active Problems Problem Noted Date Diagnosed Date BMI 39.0-39.9,adult 03/10/2017 CPAP (continuous positive airway pressure) depprachi aleman 03/10/2017 History of hypertension 03/10/2017 Obstructive sleep apnea 03/10/2017 Resolved Problems Problem Noted Date Diagnosed Date Resolved Date Encounter for preventive health examination 03/09/2014 01/27/2020 Immunizations Name Administration Dates Next Due COVID-19 Vaccine (Generic) 07/31/2020 Flublok (Quadrivalent) 03/01/2019 Influenza (Generic) 02/25/2016 Influenza Adult (Generic) 03/08/2019,05/2018,02/03/2019,2017,02/15/2018,03/25/2017,03/24/2017 MODERNA COVID-19 (12+) MRNA, LNP-S, PF, 100 MCG/ 0.5 ML DOSE 07/31/2020 PFIZER COVID-19 (ORIGINAL FORMULATION, PURPLE CAP) mRNA, LNP-S, PF, 30 MCG/0.3 ML DOSE 07/31/2020 Pneumococcal (Pneumovax 23) 05/30/2010 Pneumococcal (Prevnar 13) 02/16/2016,10/30/2015 Pneumococcal (Prevnar 20) 04/17/2022 Shingrix 12/28/2018, 9,09/22/2018,2018 Tdap (Generic) 10/27/2018, 9,06/24/2018,2017,10/30/2015 Zoster (Zostavax) 41991 Unt/0.65Ml 05/18/2013 Family History Medical History Relation Comments Cancer Father Heart Attack Father Cancer Mother Heart Attack Mother Heart Attack Sister 1 Stroke Sister 1 Cancer Sister 2 Heart Attack Sister 3 Relation Status Comments Father Mother Sister 1 Alive Sister 2 Sister 3 Social History Tobacco Use Types Packs/Day Years Used Date Smoking Tobacco: Never Smokeless Tobacco: Never Tobacco Cessation:Counseling Given: Yes Alcohol Use Standard Drinks/Week Comments Never 0 (1 standard drink = 0.6 oz pur e alcohol) AUDIT-C Answer Date Recorded Q1: How often do you have a drink containing alc ohol? Never 06/26/2020 Average Number of Drinks Not on file 021 Frequency of Binge Drinking Not on file 01/2021 PHQ-2 Answer Date Recorded PHQ-2 Score - If the patient scores above 3, please move on to questions 3-9 0 06/26/2020 Comments No Sex and Gender Information Value Date Recorded Sex Assigned at Not on file Legal Sex Female 7:50 PM CDT Gender Identity Not on file Sexual Orientation Not on file Last Filed Vital Signs Vital Sign Reading Time Taken Comments Blood Pressure 126/64 06/27/2022 10:35 AM RECORDINGS LIBRARIAN Pulse 90 06/27/2022 10:35 AM RECORDINGS LIBRARIAN Temperature 37.5 ??C (99.5 ??F) 06/27/2022 10:[address] Respiratory Rate 18 06/27/2022 10:35 AM RECORDINGS LIBRARIAN Oxygen Saturation 96% 06/27/2022 10:35 AM RECORDINGS LIBRARIAN RA Inhaled Oxygen Concentration - - Weight 102.1 kg (225 lb) 06/27/2022 10:35 AM RECORDINGS LIBRARIAN Height 167.6 cm (5' 6 ) 06/27/2022 10:35 AM RECORDINGS LIBRARIAN Body Mass Index 36.32 06/27/2022 10:35 AM RECORDINGS LIBRARIAN Plan of Treatment Health Maintenance Due Date Last Done Comments PHQ-2 ([facility] [place]) 1952 Annual Medicare Wellness Visit 2004 RSV Immunization or 60+ Years (1 - 1-dose 75+ series) 2014 COVID-19 Vaccine ( season) 2024 03/18/2021, 07/31/2020, 07/31/2020, Additional history exists Influenza Adult (#1) 2024 03/08/2019, 03/01/2019, 02/15/2019, Additional history exists PHQ-2 ([facility] [place]) 05/18/2024 DTaP, Tdap and Td Vaccines (6 - Td or Tdap) 10/27/2028 10/27/2018, 09/22/2018, 06/24/2018, Additional history exists Dexa Scan (General) Completed 12/03/2018, 09/22/2018, 05/06/2016, Additional history exists Zoster Vaccines Completed 12/28/2018, 10/16, 09/22/2018, Additional history exists Pneumococcal Vaccine: 65+ Years Completed 04/17/2022, 02/16/2016, 10/30/2015, Additional history exists Meningococcal B Vaccine Aged Out No l onger eligible based on patient's age to complete this topic Meningococcal Vaccine Aged Out No doyle agnes eligible based on patient's age to complete this topic RSV Immunizations Under 20 Months Aged Out No longer eligible based on patient's age to complete this topic Insurance MEDICARE [facility] Care Teams Industrial Manufacturing Technician Relationship Specialty Start Date End Date Tristin Smith MD PCP - General 01/06/13
--- OUTSIDE RECORDS SUMMARY | 2024-06-21 11:44 | XMS_ITS | Patient Health Summary ---
Author Organization [facility] Address [address] [place] [address] Care Team Providers Care Yard Jockey Name Role Phone Unavailable Primary Care Provider Unavailabl e Note from [facility],non-owned Affiliates and Associated Physician Practices is amultiple site organization consisting of ambulatory clinics and hospital sitesin [place], [place], [place] and [place]. This disclosure is being madepursuant to the Care Everywhere program and may not contain all information available regarding this patient. Last updated 18.[facility] Medications * Be aware that medications may not be up to date on this document. Alwaysverify current medications with the patient. * metoprolol succinate XL 24hr (Toprol XL) 25 MG tablet(Started 01/27/2024) Take 1 (one) tablet by mouth every morning * aspirin EC (Ecotrin) 81 MG tablet(Started 03/09/2023) Take 1 tablet every day by oral route. * allopurinol (Zyloprim) 100 MG tablet Take 1 (one) tablet by mouth once daily * rosuvastatin (Crestor) 10 MG tablet(Started 03/16/2024) Take 1 (one) tablet by mouth once daily * MAGnesium-Oxide 400 (240 Mg) MG(Started 01/27/2024) Take 1 (one) tablet by mouth once daily * cephalexin (Keflex) 500 MG capsule(Started 02/22/2024) Take 1 (one) capsule by mouth 2 times daily Social History Tobacco Use Types Packs/Day Years Used Date Smoking Tobacco: Never Assessed Sex and Gender Information Value Date Recorded Sex Assigned at Not on file Gender Identity Not on file Sexual Orientation Not on file Last Filed Vital Signs Vital Sign Reading Time Taken Comments Blood Pressure 151/78 03/30/2024 2:36 PM AGRICULTURE ENGINEER Pulse 64 03/30/2024 2:36 PM AGRICULTURE ENGINEER Temperature 36.6 ??C (97.8 ??F) 03/30/2024 2:36 PM CS T Respiratory Rate - - Oxygen Saturation - - Inhaled Oxygen Concentration - - Weight 92.4 kg (203 lb 12.8 oz) 03/30/2024 2:36 PM AGRICULTURE ENGINEER Height - - Body Mass Index - -
--- OUTSIDE RECORDS SUMMARY | 2024-06-21 11:44 | XMS_ITS | Referral Summary ---
Author Organization [facility] Address [address] [place] [address] Care Team Providers Care Reordering Clerk Name Role Phone Unavailable Primary Care Provider Unavailabl e Source Comments [facility],non-owned Affiliates and Associated Physician Practices is amultiple site organization consisting of ambulatory clinics and hospital sitesin [place], [place], [place] and [place]. This disclosure is being madepursuant to the Care Everywhere program and may not contain all informatio navailable regarding this patient. Last updated 18.[facility] Encounters Date Type Department Care Team Description 03/30/2024 Travel 03/30/2024 2:45 PM VINE PRUNER Office Visit [facility] - Pain Mgmt [address] [facility], [address] [address] Solomon Mueller MD Trigeminal neuralgia of right side of face (Primary Dx) from Last 3 Months Medications * Be aware that medications may not be up to date on this document. Alwaysverify current medications with the patient. Medication Sig Dispensed Refills Start Date End Date Status metoprolol succinate XL 24hr (Toprol XL) 25 MG tablet Take 1 (one) tablet by mouth every morning 01/27/2024 Active aspirin EC (Ecotrin) 81 MG tablet Take 1 tablet every day by oral route. 03/09/2023 Active allopurinol (Zyloprim) 100 MG tablet Take 1 (one) tablet by mouth once daily Active rosuvastatin (Crestor) 10 MG tablet Take 1 (one) tablet by mouth once daily 03/16/2024 Active MAGnesium-Oxide 400 (240 Mg) MG Take 1 (one) tablet by mouth once daily 01/27/2024 Active cephalexin (Keflex) 500 MG capsule Take 1 (one) capsule by mouth 2 times daily 02/22/2024 Active Social History Tobacco Use Types Packs/Day Years Used Date Smoking Tobacco: Never Assessed Sex and Gender Information Value Date Recorded Sex Assigned at Not on file Gender Identity Not on file Sexual Orientation Not on file Last Filed Vital Signs Vital Sign Reading Time Taken Comments Blood Pressure 151/78 03/30/2024 2:36 PM VINE PRUNER Pulse 64 03/30/2024 2:36 PM VINE PRUNER Temperature 36.6 ??C (97.8 ??F) 03/30/2024 2:36 PM CS T Respiratory Rate - - Oxygen Saturation - - Inhaled Oxygen Concentration - - Weight 92.4 kg (203 lb 12.8 oz) 03/30/2024 2:36 PM VINE PRUNER Height - - Body Mass Index - - Plan of Treatment Not on file Susan Foster Personal/Family Self 1940
--- OUTSIDE RECORDS SUMMARY | 2024-06-21 11:44 | XMS_ITS | Clinical Summary ---
Author Organization [facility] Address [address] [place] [address] Care Team Providers Care Fire Hydrant Operator Name Role Phone Unavailable Primary Care Provider Unavailabl e Source Comments [facility],non-owned Affiliates and Associated Physician Practices is amultiple site organization consisting of ambulatory clinics and hospital sitesin [place], [place], [place] and [place]. This disclosure is being madepursuant to the Care Everywhere program and may not contain all information available regarding this patient. Last updated 18.[facility] Medications * Be aware that medications may [...] by mouth 2 times daily 02/22/2024 Active Encounters Date Type Department Care Team Description 03/30/2024 2:45 PM CARVING MACHINE OPERATOR Office Visit [facility] [address] [place] [id number] Solomon Mueller MD Trigeminal neuralgia of right side of face (Primary Dx) 03/30/2024 Travel from Last 3 Months Social History Tobacco Use Types Packs/Day Years Used Date Smoking Tobacco: Never Assessed Sex and Gender Information Value Date Recorded Sex Assigned at Not on file Gender Identity Not on file Sexual Orientation Not on file Last Filed Vital Signs Vital Sign Reading Time Taken Comments Blood Pressure 151/78 03/30/2024 2:36 PM CARVING MACHINE OPERATOR Pulse 64 03/30/2024 2:36 PM CARVING MACHINE OPERATOR Temperature 36.6 ??C (97.8 ??F) 03/30/2024 2:36 PM CS T Respiratory Rate - - Oxygen Saturation - - Inhaled Oxygen Concentration - - Weight 92.4 kg (203 lb 12.8 oz) 03/30/2024 2:36 PM CARVING MACHINE OPERATOR Height - - Body Mass Index - - Plan of Treatment Health Maintenance Due Date Last Done Comments BONE DENSITY TESTING 1940 MEDICARE AWV ? 12 MONTHS 1940 DTAP/TDAP/TD VACCINES (1 - Tdap) 1958 PNEUMOCOCCAL VACCINE 50+ (1 of 1 - PCV) 1989 ZOSTER VACCINE (1 of 2) 1989 Respiratory Syncytial Virus (RSV) Vaccine Pt: or over 60 yrs (1 - 1-dose 75+ series) 2014 COVID-19 VACCINE ( season) 2024 03/18/2021, 07/31/2020, 07/31/2020, Additional history exists INFLUENZA VACCINE (#1) 2024 , 03/08/2019, 03/01/2019, Additional history exists DEPRESSION SCREENING 05/18/2024 HEPATITIS B VACCINE Aged Out No longe r eligible based on patient's age to complete this topic HIB VACCINE Aged Out No longer eligi ble based on patient's age to complete this topic HPV VACCINE Aged Out No longer eligi ble based on patient's age to complete this topic MENINGOCOCCAL (Group B) VACCINE Aged Out No longer eligible based on patient's age to complete this topic MENINGOCOCCAL VACCINE Aged Out No doyle agnes eligible based on patient's age to complete this topic Susan Foster Personal/Family Self 1940
[2024-06-21] MEDS: CLOPIDOGREL BISULFATE 75 MG TABLET PO (12:00)
[2024-06-21 12:02] VITALS: BP 179/68; PULSE 67; RESP 14; O2SAT 100
[2024-06-21 12:23] LABS: Cholesterol 255 mg/dL (0-200); HDL Direct 65 mg/dL; Triglycerides 148 mg/dL (<150)
[2024-06-21 12:34] LABS: LDL Cholesterol Direct 125 mg/dL
--- NOTE | 2024-06-21 13:00 | PM.IMHP ---
H&P: HPI History of Present Illness Date/Time: 06/21/24 13:40 Chief Complaint: Left face droop and slurred speech. Narrative: This is an 83-year-old female with history of transient ischemic attack, ocular strokes, migraines, hypertension, hyperlipidemia, obstructive sleep apnea, and glaucoma presented to the emergency department via EMS from home with reports of sudden onset left face droop and slurred speech. The patient and her daughter provide the following history. She seemed to be in her usual state of health when she got up this morning. Long prior to arrival she was on the phone with 1 of her daughters when suddenly she began to slur her speech and her reports that the left side of her mouth seemed to be drooping. She arrived to the emergency department within about 45 minutes and her symptoms have resolved at that time and they have not returned. The patient does not really remember what happened today at the time my evaluation she is feeling just fine and she denies fever, chills, sweats, headache, vertigo, vision changes, focal weakness, paresthesias, chest pain, shortness a breath, nausea, vomiting, diarrhea, and dysuria. Daughter is concerned that she may be having recurrent TIA that she has had similar symptoms before and is my understanding that she has also been having syncopal episodes though not within the last several days. Family is also concerned that she may be developing dementia as she is occasionally forgetful, repetitive, and more recently she has occasional tangential speech and even hallucinations, seeing children who were not actually present. There were no reports of recent illness, falls, or head trauma. In the ED: Blood pressure was 168/88 on arrival. The remainder of her vital signs were stable. labs were significant for WBC count of 7.7, hemoglobin 11.9, sodium 132, chloride 96, BUN 23, creatinine 0.86. Brain CT did not show any acute findings. EKG showed sinus rhythm without concerning ST segment changes. She was given clopidogrel 75 mg and she is being admitted in this setting for close monitoring, further workup, and neurology consultation. Review of Systems Review of Systems: 12 systems were reviewed and are negative except for as per HPI. [facility] Past Medical History Medical History (Updated 06/21/24 @ 23:19 by Colleen Corado PA-C) Obstructive sleep apnea on CPAP Transient ischemic attack Migraine Gout Trigeminal neuralgia Urinary incontinence in female Glaucoma Ischemic optic neuropathy Dyslipidemia Hypertension Surgical History Surgical History (Updated 06/21/24 @ 13:42 by Colleen Corado PA-C) History of bilateral carpal tunnel release History of right hip replacement complicated by postop infection on chronic antibiotic therapy with Keflex Status post removal of thyroid nodule History of colonoscopy with polypectomy Status post trigger finger release x5 History of hysterectomy History of appendectomy History of cardiac catheterization several cardiac catheterizations without significant coronary disease History of section Family History Family History Sibling Acute myocardial infarction Cerebrovascular accident Diabetes mellitus Breast cancer Father Diabetes mellitus Colon cancer Mother Breast cancer Colon cancer Social History Social History (Updated 06/21/24 @ 13:43 by Colleen Corado PA-C) Social History: Surrogate medical decision maker: Danny Foster, spouse ([phone]). Code status: Full code. Smoking status: Never smoker Second hand tobacco smoke exposure: Yes Alcohol intake: never Substance use: never Do You Feel Safe in your Home?: Yes Lack of Transportation: No Lack of Food: Never True Current Housing: I Have Housing Concerned About Future Housing: No Difficulty Paying Gas/Electric Bills: No Difficulty Paying for Meds: No Currently Unemployed: No Education: Associate Degree Difficulty w/ Childcare or Family Care: No Additional living arrangements comments: Lives with spouse in [place]. They have 3 children. 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 Spiritual care concerns: No Meds Home Medications and Allergies Home Medications ?Medication ?Instructions ?Recorded ?Confirmed ?Type acetaminophen 500 mg tablet 500 mg PO Q6H PRN Pain 05/29/20 06/21/24 History allopurinol 100 mg tablet 100 mg PO DAILY 05/29/20 06/21/24 History aspirin 81 mg PO DAILY 05/29/20 06/21/24 History cephalexin 500 mg capsule 500 mg PO BID 05/29/20 06/21/24 History cyanocobalamin (B12)-cobamamide 2,500 eliseo sublingual DAILY 05/29/20 06/21/24 History 5,000 mcg-100 mcg sublingual lozenge (B12) mag fm-lwznilp-pesjbkhwa-e-malia 400 mg PO DAILY 05/29/20 06/21/24 History metoprolol succinate 25 mg 25 mg PO DAILY 05/29/20 06/21/24 History tablet,extended release 24 hr rosuvastatin 20 mg tablet 10 mg PO DAILY 05/29/20 06/21/24 History Daily Probiotic 1 tablet BYMOUTH 1XD 01/21/22 06/21/24 History albuterol sulfate 90 mcg/actuation 2 puff inhalation Q8H PRN 06/21/24 06/21/24 History aerosol inhaler shortness of breath or wheezing carbamazepine 200 mg tablet 100 mg PO Q12H 06/21/24 06/21/24 History Allergies Allergy/AdvReac Type Severity Reaction Status Date / Time meperidine Allergy Mild Nausea and Verified 06/21/24 14:07 Vomiting tramadol AdvReac Nausea and Verified 06/21/24 14:07 Vomiting Contrast Media Allergy Intermediate Hives Uncoded 06/21/24 14:07 Vital Signs Vital Signs - 24 hr 06/21/24 10:19 06/21/24 10:40 06/21/24 12:02 Temperature 97.6 F Pulse Rate 65 67 Respiratory Rate 16 14 Blood Pressure 168/88 H 179/68 H Pulse Oximetry 100 100 100 Oxygen Delivery Room Air Exam Narrative: General: Well-developed female appearing younger than her stated age in the semi-Ruby position in bed. Weight: 95 kg. BMI: 33.3. HEENT: Hard of hearing. PERRL, EOMI. Sclera anicteric. Conjunctiva mildly injected. Oral mucosa moist. Oropharynx clear. Neck: Supple. No carotid bruits. Respiratory: Lungs are clear to auscultation bilaterally. Cardiovascular: Regular rate and rhythm with S1-S2. Gastrointestinal: Abdomen is soft, nontender, and nondistended with positive bowel sounds. Skin: Warm and dry. No rash or lesions on limited exam. Extremities: No cyanosis, clubbing, or edema. Radial and pedal pulses intact. Neurological: Alert and oriented x3. She does not remember what happened earlier today. Cranial nerves 2-12 are grossly intact. Speech is clear. No facial asymmetry. Hand reading efficiency course director and foot pushes are equal bilaterally. Psychiatric: Pleasant and cooperative with appropriate mood and affect. Seems forgetful. H&P: Results Labs Labs: Short CBC 06/21/24 Range/Units 10:58 WBC 7.7 (4.5-10.0) K/mm3 Hgb 11.9 L (12.0-15.0) g/dL Hct 35.1 L (37.0-47.0) % Plt Count 304 (150-375) k/mm3 BMP 06/21/24 10:58 Sodium 132 L Potassium 4.3 Chloride 96 L Carbon Dioxide 26 BUN 23 H Creatinine 0.86 Glucose 97 Calcium 8.7 Cardiac Enzymes 06/21/24 Range/Units 10:58 Troponin I < 0.012 (0.000-0.034) ng/mL Liver Function 06/21/24 Range/Units 10:58 Total Bilirubin 0.5 (0.2-1.3) mg/dL AST 22 (14-36) U/L ALT 18 (6-35) U/L Alkaline Phosphatase 98 (38-126) U/L Albumin 4.1 (3.5-5.1) g/dL Impressions Chest X-Ray 06/21/24 10:55 IMPRESSION: 1. Airspace opacities in right lower lung zone, consistent with atelectasis versus pneumonia. Head CT 06/21/24 11:13 IMPRESSION: 1. No acute intracranial process. 2. Age-related changes including mild diffuse volume loss and mild scattered white matter hypoattenuation consistent with chronic small vessel ischemic disease. Carotid Doppler Study 06/21/24 12:40 IMPRESSION: 1. <50% stenosis in the right internal carotid artery. 2. <50% stenosis in the left internal carotid artery. 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 Labs, imaging, EKG, and all reports were personally reviewed. Clinical presentation is consistent with transient cerebral ischemia. Brain MRI, carotid Doppler ultrasounds, and echocardiogram with bubble study have been ordered for further evaluation. Continue daily aspirin; she received clopidogrel 75 mg in the ED and neurology has been consulted for further recommendations. Regarding possible dementia, she reportedly did okay on a recent mini-mental examination however it sounds as though she may have some underlying dementia. She is no longer wearing her CPAP as her sleep doctor reportedly told her she did needed; hypercapnia seems unlikely by examination in her serum carbon dioxide is well within normal limits. TSH and B12 ordered as family members think she seems more confused recently. She has not have any focal findings at the time my evaluation gives no history to suggest underlying infection. Blood pressures have been running in the 160s systolic and will be monitored closely. Continue cephalexin 500 mg b.i.d.. The rest of her home medications will be reviewed and resumed as appropriate. Findings and treatment plan were discussed with the patient. Questions were solicited and answered to satisfaction. The patient's medical management will be taken over by the hospitalist team in a.m. Quality VTE Prophylaxis VTE prophylaxis: mechanical ordered Hospitalist [facility] Advance Care Plan I have confirmed that the patient's Advanced Care Plan is present, code status is documented, or surrogate decision maker is listed in patient medical record.: Yes Medication Reconciliation I have utilized all available resources to obtain, update and review the patients current medications (includes all prescriptions, OTC, herbals, cannabis, and nutritional supplements).: Yes
[2024-06-21 14:04] VITALS: BMI 33.3
[2024-06-21 14:10] VITALS: BP 147/79; PULSE 70; RESP 18; TEMP 36.5; O2SAT 100
--- NOTE | 2024-06-21 14:13 | ADMGEN ---
This patient, Susan Foster, was admitted to Medical Room 247-. Patient/family oriented to hospital policies and general routines including ID bracelet, bed and alarms, visiting hours, pain management, procedures, bathroom and other care routines, personal items, smoking policy, room service/diet, and visiting hours. Information on how to activate the Rapid Response Team has been discussed. Patient/Family are encouraged to report perceived risks to care and to ask questions if they do not understand what they are told or what they should do.
[2024-06-21] MEDS: carBAMazepine 200 MG TABLET 100 MG PO (17:49)
[2024-06-21 19:00] LABS: Troponin I < 0.012 ng/mL (0.000-0.034)
[2024-06-21 20:00] VITALS: BP 110/70; PULSE 69; RESP 18; TEMP 36.2; O2SAT 98
[2024-06-21] MEDS: CEPHALEXIN 500 MG CAPSULE PO (20:40)
[2024-06-21 23:08] VITALS: BP 140/85; PULSE 77; RESP 16; TEMP 36.1; O2SAT 99
[2024-06-22 03:18] VITALS: BP 130/80; PULSE 76; RESP 18; TEMP 36.6; O2SAT 97
[2024-06-22] MEDS: carBAMazepine 200 MG TABLET 100 MG PO (06:53)
[2024-06-22 08:00] VITALS: BP 132/78; PULSE 74; RESP 18; TEMP 36.5; O2SAT 97
[2024-06-22] MEDS: CEPHALEXIN 500 MG CAPSULE PO ×2 (08:21→20:32)
[2024-06-22] MEDS: allopurinoL 100 MG TABLET PO (08:21)
[2024-06-22] MEDS: ACIDOPHILUS/BULGARICUS CHEWABLE TABLET 2 TABLET BY MOUTH (08:22)
[2024-06-22] MEDS: CYANOCOBALAMIN 500 MCG TABLET PO (08:22)
[2024-06-22] MEDS: ROSUVASTATIN 10 MG TABLET PO (08:22)
[2024-06-22] MEDS: CYANOCOBALAMIN 1,000 MCG TABLET 2000 MCG PO (08:22)
[2024-06-22] MEDS: ASPIRIN 81 MG ENTERIC TABLET PO (08:22)
[2024-06-22 08:23] VITALS: PULSE 76
[2024-06-22] MEDS: METOPROLOL SUCCINATE EXT REL 25 MG TABCR PO (08:23)
--- NOTE | 2024-06-22 08:28 | P.PNIM_ITS ---
Progress Note: A&P Assessment and Plan (1) Transient cerebral ischemia: Code(s): G45.9 - Transient cerebral ischemic attack, unspecified Status: Acute Assessment and Plan: Patient developed slurred speech and left sided facial droop. Symptoms resolved within 30 minutes. - Lipid panel WNL - Head CT: 1. No acute intracranial process. 2. Age-related changes including mild diffuse volume loss and mild scattered white matter hypoattenuation consistent with chronic small vessel ischemic disease. - Carotid doppler: < 50% stenosis in the right and left internal carotid artery - MRI ordered: No acute infarct, intracranial hemorrhage, or mass lesion. Moderate chronic microvascular ischemic change. - Echo ordered - Continue rosuvastatin 10 mg daily - Started on Plavix 75 mg daily and 81 mg aspirin daily - Initiate stroke protocol, NIH Stroke Scale, neuro's q.4 hours - Monitor CBC, CMP, magnesium, troponin, and lipid profile - Monitor blood pressure, allow for permissive hypertension. 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 Patient notes that she knows these are not real and once she acknowledges them they disappear. - Neurology evaluated patient Possibility of early dementia and also because of the hallucination possibility of Lewy body disease At this stage no medication is being added They can check with the family physician at this stage (3) Hypertension: Code(s): I10 - Essential (primary) hypertension Status: Acute Assessment and Plan: Chronic, continue home medications - metoprolol 25 mg daily - blood pressures remain stable, continue to monitor (4) Dyslipidemia: Code(s): E78.5 - Hyperlipidemia, unspecified Status: Acute Assessment and Plan: Continue rosuvastatin 10 mg daily (5) Obstructive sleep apnea on CPAP: Code(s): G47.33 - Obstructive sleep apnea (adult) (pediatric); Z99.89 - Dependence on other enabling machines and devices Status: Inactive (6) 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 Keflex 500 mg BID. Time Spent With Patient Time with patient: 25 - 35 minutes Subjective Date/time seen: 06/22/24 08:28 Interval history: 83-year-old female with history of transient ischemic attack, ocular strokes, migraines, hypertension, hyperlipidemia, obstructive sleep apnea, and glaucoma presented to the hospital via EMS from home with reports of sudden onset left face droop and slurred speech. Patient is pleasant lying comfortably in bed with daughter at bedside. She has no complaints denying chest pain, shortness a breath, palpitations, numbness/tingling /weakness, nausea/ vomiting, and abdominal pain. Patient notes that she will intermittently have hallucinations of different colors/shapes and occasionally small children standing by her. She states that when she acknowledges these hallucinations they often vanish. She states that these have been ongoing for some time. Review of Systems Review of Systems: All systems reviewed & are unremarkable except as noted in HPI and below Exam Narrative: AF HR 76 RR 18 SpO2 98 BP 136/82 General: female in no acute respiratory distress who is nontoxic appearing, lying semi recumbent in bed. HEENT: Normocephalic. Atraumatic. Extraocular movement intact. Sclera clear and anicteric. Peripheral vision loss (baseline since 1993). No facial asymmetry. Chest: Lungs are clear to auscultation bilaterally. No wheezes or crackles. CV: Heart was regular rate and rhythm. S1-S2. No murmurs, gallops, or rubs. Abd: Abdomen was soft. Nontender. Nondistended. Positive bowel sounds. No organomegaly or masses. Ext: No clubbing, cyanosis, or edema. 2+ DP pulses bilaterally. Neuro: Patient is alert and oriented x4. Strength is 5/5 in both upper and lower extremities with pushes/pulls. No upper extremity drift. Cranial nerves 2-12 are intact. Speech is clear. Objective Data Vital Signs Vital Signs: Vital Signs - 24 hr 06/21/24 10:19 06/21/24 10:40 06/21/24 12:02 Temperature 97.6 F Pulse Rate 65 67 Respiratory Rate 16 14 Blood Pressure 168/88 H 179/68 H Pulse Oximetry 100 100 100 Oxygen Delivery Room Air 06/21/24 14:10 06/21/24 14:30 06/21/24 20:00 Temperature 97.7 F 97.2 F L Pulse Rate 70 69 Respiratory Rate 18 18 Blood Pressure 147/79 H 110/70 Pulse Oximetry 100 98 Oxygen Delivery Room Air 06/21/24 20:00 06/21/24 23:08 06/22/24 03:18 Temperature 97.0 F L 97.8 F Pulse Rate 77 76 Respiratory Rate 16 18 Blood Pressure 140/85 130/80 Pulse Oximetry 99 97 Oxygen Delivery Room Air 06/22/24 08:23 Temperature Pulse Rate 76 Respiratory Rate Blood Pressure Pulse Oximetry Oxygen Delivery Intake/Output Intake/Output: Intake & Output 06/19/24 06/20/24 06/21/24 06/22/24 23:59 23:59 23:59 23:59 Intake Total 240 Balance 240 Meds/Results Medications: Active Medications Generic Name Dose Route Start Last Admin Trade Name Freq PRN Reason Stop Dose Admin Acetaminophen 650 mg 06/21/24 11:50 Acetaminophen 325 Mg Tablet PO Q4H PRN Mild Pain (1-3) or Fever Albuterol 2 puff 06/21/24 14:30 Albuterol Sulfate (*Sp) Aerosol 1 Puff INHALATION Q8H PRN shortness of breath or wheezing Allopurinol 100 mg 06/22/24 09:00 06/22/24 08:21 Allopurinol 100 Mg Tablet PO 100 mg DAILY OFELIA Administration Aspirin 81 mg 06/22/24 09:00 06/22/24 08:22 Aspirin 81 Mg Enteric Tablet PO 81 mg QAM OFELIA Administration Carbamazepine 100 mg 06/22/24 18:00 Carbamazepine Chew 100 Mg Chew PO Q12H OFELIA Cephalexin HCl 500 mg 06/21/24 21:00 06/22/24 08:21 Cephalexin 500 Mg Capsule PO 500 mg Q12HR OFELIA Administration Cyanocobalamin 500 mcg 06/22/24 09:00 06/22/24 08:22 Cyanocobalamin 500 Mcg Tablet PO 500 mcg QAM OFELIA Administration Cyanocobalamin 2,000 mcg 06/22/24 09:00 06/22/24 08:22 Cyanocobalamin 1,000 Mcg Tablet PO 2,000 mcg QAM OFELIA Administration Lactobacillus Acidophilus 2 tablet 06/22/24 09:00 06/22/24 08:22 Acidophilus/Bulgaricus Chewable Tablet BY MOUTH 2 tablet DAILY OFELIA Administration Metoprolol Succinate 25 mg 06/22/24 09:00 06/22/24 08:23 Metoprolol Succinate Ext Rel 25 Mg Tabcr PO 25 mg DAILY OFELIA Administration Miscellaneous Information 1 each 06/21/24 00:01 Mag Xy-Zzsdtaj-Iqvdtngbz-E-Rolf 400 Mg Tablet Is Nonformulary. Hold? Or Can She Use Home [place] XX 07/21/24 00:00 [facility] Miscellaneous Information 0 each 06/22/24 06:25 Carbamazepine- Dose To Be Clarified By Day Hospitalist. External History Indicates 200mg P XX 07/22/24 06:24 [facility] Non-Formulary Medication 400 mg 06/22/24 09:00 Mag Le-Wzyuklz-Bpttqbiag-E-Rolf PO 07/22/24 08:59 DAILY [facility] Ondansetron HCl 4 mg 06/21/24 11:50 Ondansetron Inj 4 Mg/2 Ml Vial IV PUSH Q4H PRN Nausea Perflutren Lipid Microsphere 0 ml 06/21/24 14:26 Perflutren Lipid Microspheres 1.5 Ml Vial Diluted To 10 Ml Total Volume IV PUSH 06/24/24 14:26 ONCE PRN adequate visualization Protocol Rosuvastatin Calcium 10 mg 06/22/24 09:00 06/22/24 08:22 Rosuvastatin 10 Mg Tablet PO 10 mg DAILY OFELIA Administration Radiology Results: ITS Impressions Chest X-Ray 06/21/24 10:55 IMPRESSION: 1. Airspace opacities in right lower lung zone, consistent with atelectasis versus pneumonia. Head CT 06/21/24 11:13 IMPRESSION: 1. No acute intracranial process. 2. Age-related changes including mild diffuse volume loss and mild scattered white matter hypoattenuation consistent with chronic small vessel ischemic disease. Carotid Doppler Study 06/21/24 12:40 IMPRESSION: 1. <50% stenosis in the right internal carotid artery. 2. <50% stenosis in the left internal carotid artery. Brain MRI 06/22/24 08:08 IMPRESSION: No acute infarct, intracranial hemorrhage, or mass lesion. Moderate chronic microvascular ischemic change. Labs Labs: Laboratory Results - last 24 hr 06/21/24 06/21/24 06/21/24 10:34 10:58 17:55 WBC 7.7 RBC 3.59 L Hgb 11.9 L Hct 35.1 L MCV 97.8 MCH 33.1 MCHC 33.9 RDW 12.3 Plt Count 304 MPV 10.0 Immature Gran % (Auto) 0.4 Neut % (Auto) 62.3 Lymph % (Auto) 24.3 Hitchcock % (Auto) 9.0 H Eos % (Auto) 3.5 Baso % (Auto) 0.5 Lymph # (Auto) 1.86 Hitchcock # (Auto) 0.7 H Eos # (Auto) 0.3 Baso # (Auto) 0.0 Abs Immat Gran (auto) 0.03 Absolute Neuts (auto) 4.8 Absolute Nucleated RBC 0.000 Nucleated RBC % 0.0 PT 14.7 INR 1.1 APTT 30.0 Sodium 132 L Potassium 4.3 Chloride 96 L Carbon Dioxide 26 Anion Gap 10 BUN 23 H Creatinine 0.86 Estim Creat Clear Calc 50 Estimated GFR > 60 Glucose 97 POC Capillary Glucose 93 Calcium 8.7 Total Bilirubin 0.5 AST 22 ALT 18 Alkaline Phosphatase 98 Troponin I < 0.012 < 0.012 Total Protein 7.0 Albumin 4.1 Triglycerides 148 Cholesterol 255 H LDL Cholesterol Direct 125 HDL Direct 65 Vitamin B12 703.0 TSH (Reflex) 1.500 06/22/24 05:57 WBC RBC Hgb Hct MCV MCH MCHC RDW Plt Count MPV Immature Gran % (Auto) Neut % (Auto) Lymph % (Auto) Hitchcock % (Auto) Eos % (Auto) Baso % (Auto) Lymph # (Auto) Hitchcock # (Auto) Eos # (Auto) Baso # (Auto) Abs Immat Gran (auto) Absolute Neuts (auto) Absolute Nucleated RBC Nucleated RBC % PT INR APTT Sodium 132 L Potassium 4.1 Chloride 99 Carbon Dioxide 23 Anion Gap 10 BUN 17 Creatinine 0.65 L Estim Creat Clear Calc 64 Estimated GFR > 60 Glucose 93 POC Capillary Glucose Calcium 9.1 Total Bilirubin AST ALT Alkaline Phosphatase Troponin I Total Protein Albumin Triglycerides Cholesterol LDL Cholesterol Direct HDL Direct Vitamin B12 TSH (Reflex) Quality VTE Prophylaxis VTE prophylaxis: mechanical ordered
[2024-06-22 08:49] LABS: Hematocrit 35.6 % (37.0-47.0); Hemoglobin 12.1 g/dL (12.0-15.0); Mean Platelet Volume 10.4 fl (7.4-10.4); Platelet Count Result 301 k/mm3 (150-375); Red Blood Count 3.67 M/mm3 (4.2-5.4); Red Cell Distribution Width 12.2 % (11.5-14.5); White Blood Count 6.8 K/mm3 (4.5-10.0)
[2024-06-22 08:54] LABS: Alanine Aminotransferase 19 U/L (6-35); Albumin Level 3.8 g/dL (3.5-5.1); Alkaline Phosphatase 99 U/L (38-126); Anion Gap 11 mmol/L (4-12); Aspartate Amino Transferase 22 U/L (14-36); Bilirubin,Total 0.5 mg/dL (0.2-1.3); Blood Urea Nitrogen 16 mg/dL (7-17); Calcium 9.2 mg/dL (8.4-10.2); Carbon Dioxide 21 mmol/L (22-30); Chloride 98 mmol/L (98-107); Estimated CRCL calculation 64 ml/min; Estimated Glomerular Filt Rate > 60; Glucose 94 mg/dL (65-110); Potassium 4.1 mmol/L (3.4-5.0); Sodium 130 mmol/L (137-145)
[2024-06-22] MEDS: CLOPIDOGREL BISULFATE 75 MG TABLET PO (09:05)
[2024-06-22 10:39] LABS: Fractional Inspired Oxygen 21 %; HCO3 VBG 23.6 mEq/l (24.0-30.0); PCO2 VBG 37.2 mmHg (42.0-48.0)
[2024-06-22 10:43] LABS: Device ROOM AIR; pH VBG 7.421 (7.300-7.400)
[2024-06-22 12:00] VITALS: BP 136/82; PULSE 76; RESP 18; TEMP 36.5; O2SAT 98
--- NOTE | 2024-06-22 13:53 | P.CONNEU_ITS ---
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 TIA 2. History of intermittent hallucination in the past with mild memory dysfunction raising the possibility of early dementia and also because of the hallucination possibility of Lewy body disease but again I am not suggesting to start any medication all the pros and cons of this particular symptomatology been discussed with the patient's daughter at this stage no medication is being added if in case she started having some more difficulties and start with the donepezil 5mg daily and I have told her about the possibility of increasing hallucination that happens may consider the possibility of different kind of dementia they can check with the family physician at this stage nothing is being started thank Consult date: 06/22/24 HPI: Susan Foster is a 83 year old female admitted to the hospital through the emergency room where she was brought by EMS from home with sudden onset of left- sided facial droop and slurred speech. she was reportedly in her usual state of health ,when she woke up in the morning and Reportedly long-time prior to arrival in the ER she was on her telephone with 1 of her daughters when suddenly she began to have slurring of the speech, at that time her noted the left side of her mouth was drooping, she was brought to the ER within about 45minutes, by that time the symptomatology has completely resolved and patient was unable to recall what happened ,she gave history of no generalized symptomatology along with the focal weakness ,family were concerned about the possibility of recurrent TIA as she has had a similar symptomatology in the past with syncopal episodes additionally patient's family was concerned about the possibility of developing dementia because of recent speech difficulties and occasional hallucination in the emergency room, her blood pressure 168/88 otherwise normal vital signs, her CBC basic metabolic panel were normal ,CT scan of the brain was negative ,EKG revealed no atrial fibrillation or arrhythmia ,she was started on clopidogrel 75mg daily and admitted for further evaluation .she has ongoing history of in the past 1. TIA 2. Migraine 3. Gout 4. Trigeminal neuralgia 5. Ischemic optic neuropathy and 6. Hypertension 7. Bilateral carpal tunnel release with history of right hip replacement as well and other surgeries as mentioned. She is never alcohol intaker, never substance user and never a smoker. She has been taking multiple medication at the time of visit to the ER which particularly included allopurinol 100mg daily, aspirin 81mg daily, metoprolol 25mg daily, rosuvastatin 10mg daily, and carbamazepine 100mg q.12 hours. Initial exam in the emergency room was grossly nonfocal though she was somewhat forgetful on simple conversation, vital signs were normal, routine lab studies were normal ,CT scan of the brain was negative for the bleed and hydrocephalus, ultrasound of the carotids wase negative, and since admission MRI of the brain has also been done which only revealed moderate chronic microvascular ischemic changes but no acute infarct or mass or bleed. Review of Systems 2 Review of Systems: All systems reviewed & are unremarkable except as noted in HPI and below PMFSH Past Medical History Medical History Obstructive sleep apnea on CPAP Transient ischemic attack Migraine Gout Trigeminal neuralgia Urinary incontinence in female Glaucoma Ischemic optic neuropathy Dyslipidemia Hypertension Surgical History Surgical History History of bilateral carpal tunnel release History of right hip replacement complicated by postop infection on chronic antibiotic therapy with Keflex Status post removal of thyroid nodule History of colonoscopy with polypectomy Status post trigger finger release x5 History of hysterectomy History of appendectomy History of cardiac catheterization several cardiac catheterizations without significant coronary disease History of section Family History Family History Sibling Acute myocardial infarction Cerebrovascular accident Diabetes mellitus Breast cancer Father Diabetes mellitus Colon cancer Mother Breast cancer Colon cancer Social History Social History Social History: Surrogate medical decision maker: Danny Foster, spouse ([phone]). Code status: Full code. Smoking status: Never smoker Second hand tobacco smoke exposure: Yes Alcohol intake: never Substance use: never Do You Feel Safe in your Home?: Yes Lack of Transportation: No Lack of Food: Never True Current Housing: I Have Housing Concerned About Future Housing: No Difficulty Paying Gas/Electric Bills: No Difficulty Paying for Meds: No Currently Unemployed: No Education: Associate Degree Difficulty w/ Childcare or Family Care: No Additional living arrangements comments: Lives with spouse in [place]. They have 3 children. 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 Spiritual care concerns: No Meds Home Medications and Allergies Home Medications ?Medication ?Instructions ?Recorded ?Confirmed ?Type acetaminophen 500 mg tablet 500 mg PO Q6H PRN Pain 05/29/20 06/21/24 History allopurinol 100 mg tablet 100 mg PO DAILY 05/29/20 06/21/24 History aspirin 81 mg PO DAILY 05/29/20 06/21/24 History cephalexin 500 mg capsule 500 mg PO BID 05/29/20 06/21/24 History cyanocobalamin (B12)-cobamamide 2,500 eliseo sublingual DAILY 05/29/20 06/21/24 History 5,000 mcg-100 mcg sublingual lozenge (B12) mag ud-pjphcbs-pdovipryw-e-malia 400 mg PO DAILY 05/29/20 06/21/24 History metoprolol succinate 25 mg 25 mg PO DAILY 05/29/20 06/21/24 History tablet,extended release 24 hr rosuvastatin 20 mg tablet 10 mg PO DAILY 05/29/20 06/21/24 History Daily Probiotic 1 tablet BYMOUTH 1XD 01/21/22 06/21/24 History albuterol sulfate 90 mcg/actuation 2 puff inhalation Q8H PRN 06/21/24 06/21/24 History aerosol inhaler shortness of breath or wheezing carbamazepine 200 mg tablet 100 mg PO Q12H 06/21/24 06/21/24 History Allergies Allergy/AdvReac Type Severity Reaction Status Date / Time meperidine Allergy Mild Nausea and Verified 06/21/24 14:07 Vomiting tramadol AdvReac Nausea and Verified 06/21/24 14:07 Vomiting Contrast Media Allergy Intermediate Hives Uncoded 06/21/24 14:07 Vital Signs Vital Signs - 24 hr 06/21/24 14:10 06/21/24 14:30 06/21/24 20:00 Temperature 36.5 C 36.2 C L Pulse Rate 70 69 Respiratory Rate 18 18 Blood Pressure 147/79 H 110/70 Pulse Oximetry 100 98 Oxygen Delivery Room Air 06/21/24 20:00 06/21/24 23:08 06/22/24 03:18 Temperature 36.1 C L 36.6 C Pulse Rate 77 76 Respiratory Rate 16 18 Blood Pressure 140/85 130/80 Pulse Oximetry 99 97 Oxygen Delivery Room Air 06/22/24 08:00 06/22/24 08:20 06/22/24 08:23 Temperature 36.5 C Pulse Rate 74 76 Respiratory Rate 18 Blood Pressure 132/78 Pulse Oximetry 97 Oxygen Delivery Room Air Exam 2 Narrative: exam today revealed her to be awake alert cooperative in no obvious acute distress, his speech not dysphasic not dysarthric not dysphonic, his speech not dysphasic not dysarthric not dysphonic, head normocephalic with no bruit, ear nose throat examination normal, neck supple with no cervical bruit no thyromegaly no lymphadenopathy, heart regular with no murmur, lungs clear to auscultation, abdomen is soft with no organomegaly, neurologically she is awake alert oriented x3 his speech not dysphasic not dysarthric pupils round regular feels the vision full extraocular movements full face symmetrical tongue midline her examination revealed her to have no drift of 1 side or other side tone normal reflexes symmetrical plantars downgoing no evidence of sensory or cerebellar deficit. Results Labs 06/22/24 05:57 06/22/24 05:57 Labs: Short CBC 06/22/24 Range/Units 05:57 WBC 6.8 (4.5-10.0) K/mm3 Hgb 12.1 (12.0-15.0) g/dL Hct 35.6 L (37.0-47.0) % Plt Count 301 (150-375) k/mm3 BMP 06/22/24 06/22/24 06/22/24 05:57 05:57 05:57 Sodium Cancelled 130 L Potassium Cancelled 4.1 Chloride Cancelled Carbon Dioxide BUN Creatinine Glucose Calcium 06/22/24 06/22/24 06/22/24 05:57 05:57 05:57 Sodium Potassium Chloride 98 Carbon Dioxide Cancelled 21 L BUN Cancelled 16 Creatinine Cancelled Glucose Calcium 06/22/24 06/22/24 06/22/24 05:57 05:57 05:57 Sodium Potassium Chloride Carbon Dioxide BUN Creatinine 0.65 L Glucose Cancelled 94 Calcium Cancelled 9.2 Cardiac Enzymes 06/21/24 Range/Units 17:55 Troponin I < 0.012 (0.000-0.034) ng/mL Liver Function 06/22/24 Range/Units 05:57 Total Bilirubin 0.5 (0.2-1.3) mg/dL AST 22 (14-36) U/L ALT 19 (6-35) U/L Alkaline Phosphatase 99 (38-126) U/L Albumin 3.8 (3.5-5.1) g/dL
--- NOTE | 2024-06-22 14:26 | ECHO_ITS ---
Patient Info Name: Susan Foster Age: 83 years : 1940 Gender: Female Ht: 66 in Wt: 203 lbs BSA: 2.10 m2 HR: 76 bpm BP: 130 / 80 mmHg Heart Rhythm: Sinus Rhythm Technical Quality: Good Exam Date: 06/22/2024 3:12 PM Exam Location: Echo Lab Patient Status: Inpatient Admit Date: 06/21/2024 Staff Ordering Physician: Colleen Corado PA-C Licensed And Certified Midwife: Suzi Angela RDCS Attending Provider: Isabelle Bean PA-C Referring Physician: Mak THOMPSON; Exam Type: CA echo dop bubble study w con Study Info Indications - TIA Complete two-dimentional, color flow and Doppler transthoracic echocardiogram is performed with agitated saline and with contrast to opacify the left ventricle and to improve the delineation of the left ventricle endocardial borders. Contrast/Agitated Saline Contrast/Ag. Saline: Agitated Saline Amount: 14.00 ml Existing IV Access: Yes IV Access Condition: patent with no signs of infiltration Contrast/Ag. Saline: Definity Amount: 2.00 ml Administered By: Suzi Angela RDCS Existing IV Access: Yes IV Access Condition: patent with no signs of infiltration Summary 1. The left ventricle is mildly dilated with normal systolic function. The left ventricular ejection fraction is visually estimated to be 60-65%. There are no regional wall motion abnormalities. 2. The right ventricle is normal in size and systolic function. 3. Agitated saline study is negative for [id number] shunt. Left Ventricle The left ventricle is mildly dilated with normal systolic function. The left ventricular ejection fraction is visually estimated to be 60-65%. There are no regional wall motion abnormalities. Right Ventricle The right ventricle is normal in size and systolic function. Left Atria The left atrium is normal size. Right Atria The right atrium is normal size. Atrial Septum Agitated saline study is negative for [id number] shunt. Aortic Valve The aortic valve is trileaflet and opens well. There is mild aortic regurgitation. Pulmonic Valve The pulmonic valve is not well visualized. There is no color Doppler evidence of pulmonic valve regurgitation. Mitral Valve The mitral valve is normal. There is mild mitral regurgitation. Tricuspid Valve The tricuspid valve is grossly normal. There is trace tricuspid regurgitation. Pericardium/Pleural Pericardium is normal in appearance with no evidence for significant pericardial effusion. Inferior Vena Cava Normal inferior vena cava with <50% collapse upon inspiration consistent with elevated right atrial pressure, 8 mmHg. Normal inferior vena cava with <50% collapse upon inspiration consistent with elevated right atrial pressure, 8 mmHg. Aorta The aortic root at the level of the sinus of Valsalva measures 3.1 cm in diameter. Left Ventricular Outflow Tract Name Value Normal LVOT 2D LVOT Diameter 2.0 cm LVOT Doppler LVOT Peak Gradient 5 mmHg LVOT Mean Gradient 3 mmHg LVOT VTI 28 cm LVOT VTI/AV VTI Ratio 0.8 LVOT Stroke Volume 86 ml LVOT CO 5.1 l/min LVOT CI 2.4 l/min/m2 Pulmonic Valve Name Value Normal RVOT Doppler RVOT Peak Gradient 2 mmHg PV Doppler PV Peak Gradient 5 mmHg Mitral Valve Name Value Normal MV Doppler MV Decel [place] 425 cm/s2 MV PHT 67 ms MV Area (PHT) 3.3 cm2 4.0-5.0 MV Regurgitation Doppler MR Peak Gradient 121 mmHg MV Diastolic Function MV E Peak Velocity 98 cm/s MV A Peak Velocity 122 cm/s MV E/A 0.8 MV Decel Time 231 ms MV Annular TDI MV E/e' (Septal) 14.8 <=8.0 MV E/e' (Lateral) 14.5 <=8.0 MV E/e' (Average) 14.6 Tricuspid Valve Name Value Normal TV Regurgitation Doppler TR Peak Velocity 218 cm/s TR Peak Gradient 14 mmHg Estimated PAP/RSVP RA Pressure 8 mmHg <=5 PA Systolic Pressure 27 mmHg <36 RV Systolic Pressure 27 mmHg <36 Aorta Name Value Normal Ascending Aorta Ao Root Diameter (MM) 2.9 cm Ao Root Diam Index (MM) 1.4 cm/m2 Aortic Valve Name Value Normal AV Doppler AV Peak Velocity 149 cm/s AV Peak Gradient 9 mmHg AV Mean Gradient 5 mmHg AV VTI 34 cm AV Area (Cont Eq VTI) 2.6 cm2 >=3.0 AV Area (Cont Eq Tye) 2.4 cm2 AV Regurgitation 2D LVOT Area 3.1 cm2 AV Regurgitation Doppler AR Decel Time 1,656 ms AR Decel [place] 212 cm/s2 AR PHT 480 ms Ventricles Name Value Normal LV Dimensions 2D/MM IVS Diastolic Thickness (2D) 1.0 cm 0.6-1.0 LVID Diastole (2D) 5.6 cm 3.8-5.2 LVIW Diastolic Thickness (2D) 0.9 cm 0.6-0.9 LVID Systole (2D) 3.3 cm 2.2-3.5 LVOT Diameter 2.0 cm LV Mass (2D Cubed) 218.57 g 67.00-162.00 LV Mass Index (2D Cubed) 104 g/m2 43-95 Relative Wall Thickness (2D) 0.33 LV Fractional Shortening/Ejection Fraction 2D/MM LV Fractional Shortening (2D) 42 % 27-45 LV EF (2D Teicholz) 72 % 54-74 LV Diastolic Volume (4C MOD) 77 ml LV EF (4C MOD) 67 % LV Diastolic Volume (2C MOD) 97 ml LV EF (2C MOD) 75 % LV Diastolic Volume (BP MOD) 90 ml 46-106 LV Diastolic Volume Index (BP MOD) 43 ml/m2 29-61 LV Systolic Volume (BP MOD) 25 ml 14-42 LV Systolic Volume Index (BP MOD) 12 ml/m2 8-24 LV EF (BP MOD) 72 % 54-74 LV Diastolic Length (4C) 7.3 cm LV Systolic Length (4C) 6.2 cm LV Stroke Volume (4C MOD) 52 ml Atria Name Value Normal LA Dimensions LA Dimension (MM) 3.4 cm 2.7-3.8 LA Volume (4C A-L) 50 ml LA Volume (BP A-L) 54 ml RA Dimensions RA Area (4C) 15.5 cm2 <=18.0 Report Signatures
[2024-06-22] MEDS: PERFLUTREN LIPID MICROSPHERES 1.5 ML VIAL DILUTED TO 10 ML TOTAL VOLUME IV PUSH (15:48)
[2024-06-22 16:00] VITALS: BP 140/67; PULSE 57; PULSE 71; RESP 18; TEMP 36.6; O2SAT 98
--- NOTE | 2024-06-22 16:11 | IVDEFINITY ---
Prior to administration of IV Definity the patient was educated on the risks and benefits of the imaging enhancing agent including potential adverse side effects. The patient verbalized understanding. Allergies were verified. No exclusion criteria were identified and at least one of the following inclusion criteria were met: 1) physician request, 2) patient technically difficult to image (per the [place] [employer]chocardi[employer] guidelines of two or more segments not discernable within the apical view), or 3) questionable left ventricular function. ?
[2024-06-22 20:00] VITALS: BP 134/51; PULSE 66; RESP 16; TEMP 37.1; O2SAT 98
[2024-06-23] VITALS: BP 122/64; PULSE 61; PULSE 63; RESP 16; TEMP 36.8; O2SAT 99
[2024-06-23 04:00] VITALS: BP 132/72; PULSE 60; PULSE 74; RESP 16; TEMP 36.7; O2SAT 99
[2024-06-23 05:49] LABS: Hematocrit 34.6 % (37.0-47.0); Hemoglobin 11.8 g/dL (12.0-15.0); Mean Corpuscular HGB Conc 34.1 g/dl (32-36); Mean Corpuscular Hemoglobin 32.8 pg (26-34); Mean Corpuscular Volume 96.1 fl (80-100); Mean Platelet Volume 10.2 fl (7.4-10.4); Platelet Count Result 282 k/mm3 (150-375); Red Cell Distribution Width 11.9 % (11.5-14.5); White Blood Count 6.5 K/mm3 (4.5-10.0)
[2024-06-23 06:02] LABS: Alanine Aminotransferase 19 U/L (6-35); Albumin Level 3.8 g/dL (3.5-5.1); Alkaline Phosphatase 93 U/L (38-126); Anion Gap 8 mmol/L (4-12); Aspartate Amino Transferase 22 U/L (14-36); Bilirubin,Total 0.4 mg/dL (0.2-1.3); Blood Urea Nitrogen 18 mg/dL (7-17); Carbon Dioxide 26 mmol/L (22-30); Chloride 96 mmol/L (98-107); Estimated CRCL calculation 60 ml/min; Estimated Glomerular Filt Rate > 60; Glucose 95 mg/dL (65-110); Potassium 4.1 mmol/L (3.4-5.0); Sodium 130 mmol/L (137-145)
[2024-06-23 08:00] VITALS: BP 163/67; PULSE 58; RESP 18; TEMP 36.3; O2SAT 100
[2024-06-23] MEDS: ASPIRIN 81 MG ENTERIC TABLET PO (08:41)
[2024-06-23] MEDS: CYANOCOBALAMIN 500 MCG TABLET PO (08:41)
[2024-06-23] MEDS: ACIDOPHILUS/BULGARICUS CHEWABLE TABLET 2 TABLET BY MOUTH (08:42)
[2024-06-23] MEDS: CEPHALEXIN 500 MG CAPSULE PO (08:42)
[2024-06-23] MEDS: CYANOCOBALAMIN 1,000 MCG TABLET 2000 MCG PO (08:42)
[2024-06-23] MEDS: ROSUVASTATIN 10 MG TABLET PO (08:42)
[2024-06-23] MEDS: allopurinoL 100 MG TABLET PO (08:42)
[2024-06-23] MEDS: CLOPIDOGREL BISULFATE 75 MG TABLET PO (08:42)
[2024-06-23 08:43] VITALS: PULSE 60
[2024-06-23] MEDS: METOPROLOL SUCCINATE EXT REL 25 MG TABCR PO (08:43)
[2024-06-23 10:59] VITALS: O2SAT 97
[2024-06-23 12:00] VITALS: PULSE 57
--- NOTE | 2024-06-23 13:11 | P.DS_ITS ---
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: Code(s): G30.0 - Alzheimer's disease with early onset; F02.80 - Dementia in other diseases classified elsewhere, unspecified severity, without behavioral disturbance, psychotic disturbance, mood disturbance, and anxiety Status: Acute (3) Hypertension: Code(s): I10 - Essential (primary) hypertension Status: Acute (4) Dyslipidemia: Code(s): E78.5 - Hyperlipidemia, unspecified Status: Acute (5) Obstructive sleep apnea on CPAP: Code(s): G47.33 - Obstructive sleep apnea (adult) (pediatric); Z99.89 - Dependence on other enabling machines and devices Status: Inactive (6) 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 Symptoms resolved in 30 minutes. Lipid panel WNL. Head CT showed no acute intracranial process, age-related changes including mild diffuse volume loss and mild scattered white matter hypoattenuation consistent with chronic small vessel ischemic disease. Carotid dopplers showed < 50% stenosis in the right and left internal carotid artery. MRI showed no acute infarct, intracranial hemorrhage, or mass lesion, moderate chronic microvascular ischemic change. Echo showed LVEF 60-65% with a negative bubble study. Neurology consulted. Patient started on plavix and continued aspirin and rosuvastatin. Patient is to follow up up with neurology in the outpatient setting. Patient and her daughter report a history of intermittent hallucinations including colors/shapes/people with mild memory dysfunction. Patient notes that she knows these are not real and once she acknowledges them they disappear. Per neurology this is concerning for early dementia, but no medication changes are required at this time. Patient is to follow up with her PCP in this regard. At time of discharge patient has no complaints denying chest pain, shortness of breath, palpitations, nausea/vomiting, abdominal pain, weakness, and dizziness/lightheadedness/numbness. Patient discharged home in a stable condition with plan for outpatient physical therapy. She is to follow-up with her primary care provider in 1 week and continue the medications as prescribed. Status at Discharge Functional status at discharge: independent ambulation Time Spent with Patient Time attestation: Total time spent providing and/or coordinating discharge services: Time spent: Greater than 30 minutes Exam Narrative: AF HR 57 RR18 SpO2 97 BP 163/67 General: female in no acute respiratory distress who is nontoxic appearing, lying semi recumbent in bed. HEENT: Normocephalic. Atraumatic. Extraocular movement intact. Sclera clear and anicteric. Peripheral vision loss (baseline since 1993). No facial asymmetry. Chest: Lungs are clear to auscultation bilaterally. No wheezes or crackles. CV: Heart was regular rate and rhythm. S1-S2. No murmurs, gallops, or rubs. Abd: Abdomen was soft. Nontender. Nondistended. Positive bowel sounds. No organomegaly or masses. Ext: No clubbing, cyanosis, or edema. 2+ DP pulses bilaterally. Neuro: Patient is alert and oriented x4. Strength is 5/5 in both upper and lower extremities with pushes/pulls. No upper extremity drift. Cranial nerves 2-12 are intact. Speech is clear. DS: Data Data Completed and Pending Completed studies during hospitalization: Brain MRI Carotid doppler Head CT Chest XR Labs on day of discharge: Labs from last 24 hours 06/23/24 04:58 WBC 6.5 RBC 3.60 L Hgb 11.8 L Hct 34.6 L MCV 96.1 MCH 32.8 MCHC 34.1 RDW 11.9 Plt Count 282 MPV 10.2 Sodium 130 L Potassium 4.1 Chloride 96 L Carbon Dioxide 26 Anion Gap 8 BUN 18 H Creatinine 0.70 Estim Creat Clear Calc 60 Estimated GFR > 60 Glucose 95 Calcium 9.0 Total Bilirubin 0.4 AST 22 ALT 19 Alkaline Phosphatase 93 Total Protein 7.0 Albumin 3.8 Discharge Plan Discharge Attending physician on discharge: Becky Grigsby Consulting providers: Wan Monteiro Discharging Clinician: Isabelle Bean Anticipated Discharge Date/Time: 06/23/24 13:08 Patient Disposition: Home, Self-Care Activity: as tolerated Diet: as tolerated and heart healthy Discharge Instructions: Discharge disposition: Patient admitted to the hospital after developing slurred speech and facial droop concerning for TIA All imaging was negative for acute stroke Take medications as prescribed Started on plavix 75 mg daily Continue aspirin 81 mg daily and rosuvastatin 10 mg daily Eat well balanced meals and stay hydrated Strict bleeding precautions since you are being started on Plavix including shaving with an electric razor, holding pressure for greater than 20 minutes for injury, protection of had with any falls, etc. Patient evaluated by neurology. Follow-up with neurology in 6-8 weeks Patient was endorsing intermittent hallucinations Evaluated by neurology and concerning for possible dementia Patient evaluated by neurology, follow up with family physician Monitor blood pressures Take caution while standing, rising, or moving Change positions slowly taking a break between each position change If you standing feel dizzy sit back down and take a break Encouraged to continue with yearly vaccinations Return to the emergency department if he developed sudden shortness of breath, chest pain, nausea, vomiting, upset stomach or intractable diarrhea Return to the emergency department if you develop fever greater than 101.5 Follow-up with the primary care physician within 1-2 weeks Thank you for choosing [facility] for your healthcare needs Patient Instructions: Antibiotic Form, Aspirin (By mouth), Clopidogrel (By mouth), Transient Ischemic Attack (DC), Blood Thinners (DC) Patient Language: [place] Stand Alone Forms: General Discharge Information Follow-up/Referrals: Wan Monteiro MD [Physician] - Call for Appointment Luis,MD Tristin [Primary Care Provider] - 1 Week Discharge Medications: New clopidogrel 75 mg Tablet 75 mg PO QAM Qty: 30 0RF Continued Daily Probiotic 1 tablet BYMOUTH 1XD carbamazepine 200 mg tablet 100 mg PO Q12H Rx Instructions: 0600, 1800 albuterol sulfate 90 mcg/actuation HFA aerosol inhaler 2 puff INHALATION Q8H PRN (Reason: shortness of breath or wheezing) allopurinol 100 mg tablet 100 mg PO DAILY acetaminophen 500 mg Tablet 500 mg PO Q6H PRN (Reason: Pain) cephalexin 500 mg Capsule 500 mg PO BID metoprolol succinate 25 mg Tablet Extended Release 24 Hr 25 mg PO DAILY rosuvastatin 20 mg Tablet 10 mg PO DAILY aspirin 81 mg tablet 81 mg PO DAILY B12 5,000-100 mcg Lozenge 2,500 eliseo SUBLINGUAL DAILY mag [id number]-[id number] 400 mg tablet 400 mg PO DAILY Other Ambulatory Orders: PT Outpatient Eval and Treat (ONCE) Timeframe: [id number] Location: Determined by Patient Ordered By: Isabelle Bean Date of admission: 06/21/24 11:50 Primary Care Provider: LuisTristin Admitting Provider: Alfonso Farfan Attending physician on admission: Isabelle Bean Condition: Stable Hospitalist MIPS Heart Failure (Exclusion) Patient has history of Heart Transplant or Left Ventricular Assistive Device?: No IF YES, STOP HERE Heart Failure (Qualifier) Patient has current or prior documentation of LVEF less than or equal to 40%, or mod/servere depressed LVSF?: No IF NO, STOP HERE
== END 2024-06-23 14:25 | disposition home or self-care (01) | DRG 69 ==
LOC: ANHED 11:49 → ANH2MED 06-22 06:45 → ANH3MEDSUR 06-24 09:00
PROVIDERS: Physician Assistant; Admitting Provider Internal Medicine; Emergency Provider Family Medicine; PCP Internal Medicine; Visit Provider Student in an Organized Health Care Education/Training Program
DX: G45.9 Transient cerebral ischemic attack, unspecified (principal); I10 Essential (primary) hypertension; G47.33 Obstructive sleep apnea (adult) (pediatric); G43.909 Migraine, unspecified, not intractable, without status migrainosus; G30.0 Alzheimer's disease with early onset; F02.80 Dementia in other diseases classified elsewhere, unspecified severity, without behavioral disturbance, psychotic disturbance, mood disturbance, and anxiety; R29.701 NIHSS score 1; E78.5 Hyperlipidemia, unspecified; M10.9 Gout, unspecified; H40.9 Unspecified glaucoma; H47.019 Ischemic optic neuropathy, unspecified eye; Z96.641 Presence of right artificial hip joint; Z79.82 Long term (current) use of aspirin
CPT/HCPCS: 36415; 70450; 70551; 71045; 80048; 80053; 80061; 82607; 82803; 82948; 84443; 84484; 85025; 85027; 85610; 85730; 93005; 93880; 96374; 96375; 97161; 97165; 99285; A9270; C8929; Q9957